=== PATIENT | male | born 1940 | race Caucasian/White ===

== ENCOUNTER → 2023-09-18 15:52 | Outpatient (REF) | payer MEDICARE, OTHER, SELFPAY | LOC: HWRAD 15:52 | PROVIDERS: ATTENDING PHYSICIAN Specialist; FAMILY PHYSICIAN Family Medicine | DX: N20.0 Calculus of kidney (principal) | CPT/HCPCS: 74176 ==

== ENCOUNTER 2024-01-31 13:08 | Emergency (ER) | payer MEDICARE, OTHER, SELFPAY ==
[2024-01-31 13:17] VITALS: BP 136/78
--- NOTE | 2024-01-31 14:13 | ED.GENMED ---
History of Present Illness
General
Chief Complaint: Abdominal Symptoms
Source: patient and family
Time Seen by Provider: 01/31/24 13:59
History of Present Illness
History of Present Illness:
83yoM with a history of hypertension, hyperlipidemia, and aortic stenosis presenting with his for evaluation of generalized weakness. Patient and his started with diarrhea last week. The diarrhea lasted about 3 days before resolving. He is
now experiencing generalized weakness, fatigue, nausea, and decreased appetite. He has lost about 10 pounds within the past week. He also reports intermittent right sided abdominal pain. He was able to do some yard work today for about 30 minutes
but was very fatigued afterwards. He is having some mild shortness of breath with walking up the steps. No chest pain or syncope. No fevers or hematochezia. He called his PCP's office today and he was advised to go to the ED for evaluation.
Past History
Past History
ED Past Medical History: HTN, Hypercholesterolemia and Other (BPH, Kidney stones, Double vision corrected with glasses,)
ED Past Surgical History: Orthopedic (bilateral knee surgery)
Social History
Tobacco: Non-smoker
Alcohol: Daily (wine 1 glass)
Personal:
Living: with family
Phy Exam
Physical Exam
Physical Exam:
Appears mildly fatigued, non-toxic
General Physical Exam
General Presentation: well appearing and no apparent distress
General age: appears stated age
General Skin: warm and dry
General Habitus: elderly
General Mental: alert
Cardiovascular Exam
Cardiovascular Exam: regular rate/rhythm and systolic murmur
Pulmonary Exam
Pulmonary Exam: lungs clear, no respiratory distress, no crackles and no wheezing
Gastrointestinal Exam
Gastrointestinal Exam: normal bowel sounds, non tender, soft and non distended
Skin Exam
Skin Exam: normal color and warm/dry
Psychiatric Exam
Psychiatric Exam: normal mood/affect
Course
Orders/Labs/Results
Orders:
Orders
01/31/24 14:12
Electrocardiogram (*1) Urgent
Reason for Study: Other
Other Reason for Exam: generalized weakness
EKG- Treatment ONCE
CR Chest - 2 Views Urgent
Comment:
Reason For Exam: Cough, weakness
01/31/24 14:13
0.9% Sodium Chloride 250 ml [Nss] 250 ml IV BOLUS
01/31/24 14:31
Complete Blood Count/With Diff Urgent
Comprehensive Metabolic Panel Urgent
Lipase Urgent
Magnesium Urgent
Troponin I Urgent
01/31/24 15:14
CT Abd/pel Without Iv Or Oral Urgent
Comment:
Reason For Exam: RLQ pain
Abnormal Lab Results
01/31/24
14:31
RBC 3.58 L 10^6/uL
(4.70-6.10)
Hgb 11.6 L g/dL
(13.0-18.0)
Hct 33.5 L %
(39.0-52.0)
MCH 32.4 H pg
(27.0-31.0)
MPV 11.5 H fL
(7.4-10.4)
Absolute Lymphs (auto) 0.9 L 10^3/uL
(1.2-3.4)
Absolute Monos (auto) 0.7 H 10^3/uL
(0.1-0.6)
Lymphocytes % 13.1 L %
(20.5-51.1)
Monocytes % 10.3 H %
(1.7-9.3)
Chloride 108 H mmol/L
(98-107)
BUN 41 H mg/dl
(9-20)
Creatinine 1.9 H mg/dL
(0.7-1.3)
Total Protein 6.2 L g/dl
(6.3-8.2)
01/31/24 14:31
01/31/24 14:31
Vital Signs
Initial and Last Documented VS:
Initial Vital Signs
Temp Pulse Resp BP Pulse Ox
97.4 F 87 18 136/78 98
01/31/24 13:17 01/31/24 13:17 01/31/24 13:17 01/31/24 13:17 01/31/24 13:17
Last Documented Vital Signs
Temp Pulse Resp BP Pulse Ox
97.6 F 73 20 119/65 97
01/31/24 19:05 01/31/24 19:05 01/31/24 19:05 01/31/24 19:05 01/31/24 19:05
MDM/Problems Addressed
Differential Diagnosis Includes:
83yoM here with fatigue, nausea, and decreased appetite. Started with diarrhea 1 week ago which has resolved. No f/c. He is afebrile and hemodynamically stable. He is well appearing in no distress. No signs of peritonitis on abdominal exam.
Differential diagnosis includes but is not limited to: dehydration, electrolyte abnormality, EWA, intra-abdominal infection
Initial ED plan: Check cardiac labs, EKG, CXR, and CT abdomen. IV fluid bolus.
*EKG
Interpreted by ED Provider?: Yes
EKG Intrepretation Date: 01/31/24
Heart Rate: 74
Rate: normal
Rhythm: sinus
[place]: normal axis
Interval: normal interval
QRS Pattern: normal QRS
Ischemia: no ischemia
*Critical Care Note
Total Time (30-74mins, 75-104mins- exclusive of procedures): Not Applicable
Update Note
Update Note:
Labs reveal a creatinine of 1.9 and GFR 34. White count, electrolytes, and LFTs normal. EKG shows NSR without ischemic changes and troponin is normal. CXR is normal. CT abdomen shows evidence of an diarrheal illness without other acute findings. I
called patient's nephrology office. Last BMP was checked on 01/17/24 and creatinine was 1.78 at that time. Creatinine mildly above baseline but no indication for admission at this time. 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 ED return
precautions discussed. Patient in agreement with plan and was discharged in stable condition.
ED Attending Note
-
Portions of this chart may have been created with voice recognition software.� Occasional wrong word or��sound alike� substitutions may have occurred due to the inherent limitations of voice recognition software.
Discharge Plan
Departure
Patient Disposition: Home (Routine Discharge)
Date of Disposition: 01/31/24
Time of Disposition: 17:42
Patient with high blood pressure during this ER visit?: No
Discharge Problem:
Malaise and fatigue
Instructions: Fatigue ED
Referrals:
Stef Rome MD [Family Provider] -
Activity Restrictions/Additional Instructions:
Drink plenty of fluids and rest.
Please follow-up with your family doctor on Saturday. Return to the ER with any new or worsening symptoms.
Interventions
Interventions:
*Risk Screen - Suicide Last Done: 01/31/24 15:43
*General Assessment Last Done: 01/31/24 13:14
*Neglect/Abuse Screening Last Done: 01/31/24 15:43
ED- Fall Risk Assessment Last Done: 01/31/24 19:05
*ED COVID-19 Vaccine History Last Done: 01/31/24 13:18
*Nursing Disposition Last Done: 01/31/24 19:05
ML-Hvwmod-[id number] Assessment Last Done: 01/31/24 15:46
Discharge Date and Time
Discharge Date/Time: 01/31/24 19:07
Print Language: WELSH
[2024-01-31] MEDS: NSS 250 IV (14:38)
[2024-01-31 14:50] LABS: % Basophils 0.6 % (0-2); % Eosinophils 0.7 % (0-6); % Immature Granulocytes 0.4 % (0-0.5); % Lymphocytes 13.1 % (20.5-51.1); % Monocytes 10.3 % (1.7-9.3); % Neutrophils 74.9 % (42.2-75.2); Absolute Eosinophils 0.1 10^3/uL (0-0.7); Absolute Lymphocytes 0.9 10^3/uL (1.2-3.4); Absolute Monocytes 0.7 10^3/uL (0.1-0.6); Absolute Neutrophils 5.1 10^3/uL (1.4-6.5); Hematocrit 33.5 % (39.0-52.0); Hemoglobin 11.6 g/dL (13.0-18.0); Mean Corp Hgb Conc. 34.6 g/dL (33.0-37.0); Mean Corpuscular Hgb 32.4 pg (27.0-31.0); Mean Corpuscular Volume 93.6 fL (80.0-94.0); Mean Platelet Volume 11.5 fL (7.4-10.4); Nucleated Red Blood Cells % 0 % (-); Platelet Count 181 10^3/uL (130-400); Red Blood Cell Count 3.58 10^6/uL (4.70-6.10); Red Cell Dist. Width 13.3 % (11.5-14.5); White Blood Cell Count 6.8 10^3/uL (4.8-10.8)
[2024-01-31 15:04] LABS: ALT (SGPT) 28 U/L (0-50); AST (SGOT) 39 U/L (17-59); Alkaline Phosphatase 68 U/L (38-126); Blood Urea Nitrogen 41 mg/dl (9-20); Calcium 9.5 mg/dl (8.4-10.2); Carbon Dioxide 22 mmol/L (22-30); Chloride 108 mmol/L (98-107); Glucose 99 mg/dl (70-99); Lipase 123 U/L (23-300); Magnesium 2.1 mg/dl (1.6-2.3); Potassium 4.7 mmol/L (3.5-5.1); Sodium 138 mmol/L (135-145); Total Bilirubin 0.5 mg/dl (0.2-1.3); Total Protein 6.2 g/dl (6.3-8.2); eGFR 34.35
[2024-01-31 15:15] LABS: Troponin I < 0.012 ng/ml
[2024-01-31 15:35] VITALS: BMI 22.9
[2024-01-31 15:42] VITALS: BP 117/66
[2024-01-31 19:05] VITALS: BP 119/65
== END 2024-01-31 19:07 | disposition home or self-care (01) ==
LOC: EMR 13:08
PROVIDERS: Physician Assistant; EMERGENCY PHYSICIAN Emergency Medicine; FAMILY PHYSICIAN Family Medicine
DX: R53.83 Other fatigue (principal); R53.81 Other malaise; R19.7 Diarrhea, unspecified; R06.02 Shortness of breath; R11.0 Nausea; I10 Essential (primary) hypertension; E78.00 Pure hypercholesterolemia, unspecified; N40.0 Benign prostatic hyperplasia without lower urinary tract symptoms; I35.0 Nonrheumatic aortic (valve) stenosis
CPT/HCPCS: 99284; 96360; 71046; 74176; 80053; 83690; 83735; 84484; 85025; 93005

== ENCOUNTER → 2024-05-21 09:17 | Outpatient (REF) | payer MEDICARE, OTHER, SELFPAY | LOC: RCS 09:17 | PROVIDERS: ATTENDING PHYSICIAN Internal Medicine Cardiovascular Disease; FAMILY PHYSICIAN Family Medicine | DX: I35.0 Nonrheumatic aortic (valve) stenosis (principal) | CPT/HCPCS: 93306 ==

== ENCOUNTER → 2024-11-03 09:26 | Outpatient (REF) | payer MEDICARE, OTHER, SELFPAY | LOC: HWRAD 09:26 | PROVIDERS: ATTENDING PHYSICIAN Internal Medicine; FAMILY PHYSICIAN Family Medicine | DX: N18.32 Chronic kidney disease, stage 3b (principal) | CPT/HCPCS: 76775 ==

== ENCOUNTER 2025-03-29 13:54 | Emergency (ER) | payer MEDICARE, OTHER, SELFPAY ==
[2025-03-29 14:04] VITALS: BP 125/62
[2025-03-29 14:24] LABS: Hematocrit 35.4 % (39.0-52.0); Hemoglobin 11.3 g/dL (13.0-18.0); Mean Corp Hgb Conc. 31.9 g/dL (33.0-37.0); Mean Corpuscular Volume 101.4 fL (80.0-94.0); Nucleated Red Blood Cells % 0 % (-); Platelet Count 192 10^3/uL (130-400); Red Cell Dist. Width 16.0 % (11.5-14.5)
[2025-03-29 14:43] LABS: INR 1.07; PT 14.2 Sec (11.4-14.6)
[2025-03-29 14:46] LABS: ALT (SGPT) 35 U/L (0-50); AST (SGOT) 34 U/L (17-59); Albumin 3.7 g/dl (3.5-5.0); Alkaline Phosphatase 78 U/L (38-126); Blood Urea Nitrogen 32 mg/dl (9-20); Calcium 8.7 mg/dl (8.4-10.2); Carbon Dioxide 26 mmol/L (22-30); Chloride 111 mmol/L (98-107); Glucose 90 mg/dl (70-99); Potassium 4.9 mmol/L (3.5-5.1); Sodium 140 mmol/L (135-145); Total Protein 6.1 g/dl (6.3-8.2)
[2025-03-29 14:55] LABS: eGFR 39.02
[2025-03-29 14:56] LABS: Troponin I < 0.012 ng/ml
[2025-03-29 19:24] VITALS: BP 135/85
[2025-03-29 19:32] VITALS: BMI 23.4
--- NOTE | 2025-03-29 19:44 | ED.GENMED ---
History of Present Illness
General
Chief Complaint: Fainting Sensation
Time Seen by Provider: 03/29/25 19:11
History of Present Illness
History of Present Illness:
84-year-old male with history of aortic stenosis, hypertension, and hyperlipidemia presents to the emergency department for evaluation of a near syncopal episode that occurred while he was taking out a heavy bag of trash. States he had carried 2
heavy bags of trash without difficulty but then shortly after he began to feel very lightheaded and weak all over. He lowered himself to the ground and was unable to get up for a period of time. Episode lasted 10 to 15 minutes before resolving.
He now feels well. Denies associated palpitations or chest pain. Last echocardiogram was 2023 showing moderate
Past History
Past History
ED Past Medical History: HTN, Hypercholesterolemia and Other (BPH, Kidney stones, Double vision corrected with glasses,)
ED Past Surgical History: Orthopedic (bilateral knee surgery)
Social History
Tobacco: Non-smoker
Alcohol: Daily (wine 1 glass)
Personal:
Living: with family
Review of Systems
Review of Systems
Allergies reviewed?: Yes
All Other Systems: ROS reviewed and negative except as documented in HPI and ROS
Phy Exam
Physical Exam
Physical Exam:
GEN: Well appearing, NAD, WDWN
HEENT: Oral mucosa moist, no scleral icterus
Cardiac: Regular rate and rhythm, moderate systolic murmur
Lung: No respiratory distress, no tachypnea, lungs clear to auscultation
MSK: No gross deformity or injuries
Skin: Good color, no pallor or jaundice, no rashes
Neuro: AO x3, cranial nerves II through XII grossly intact, moves all extremities freely
Psych: Calm, cooperative
Course
Orders/Labs/Results
Orders:
Orders
03/29/25 14:09
Electrocardiogram (*1) Urgent
Reason for Study: Chest Pain
EKG- Treatment ONCE
03/29/25 14:13
Complete Blood Count/With Diff Urgent
Comprehensive Metabolic Panel Urgent
Prothrombin Time Urgent
Troponin I Urgent
Abnormal Lab Results
03/29/25
14:13
RBC 3.49 L 10^6/uL
(4.70-6.10)
Hgb 11.3 L g/dL
(13.0-18.0)
Hct 35.4 L %
(39.0-52.0)
MCV 101.4 H fL
(80.0-94.0)
MCH 32.4 H pg
(27.0-31.0)
MCHC 31.9 L g/dL
(33.0-37.0)
RDW 16.0 H %
(11.5-14.5)
MPV 10.9 H fL
(7.4-10.4)
Absolute Lymphs (auto) 0.8 L 10^3/uL
(1.2-3.4)
Lymphocytes % 15.4 L %
(20.5-51.1)
Monocytes % 9.7 H %
(1.7-9.3)
Chloride 111 H mmol/L
(98-107)
BUN 32 H mg/dl
(9-20)
Creatinine 1.7 H mg/dL
(0.7-1.3)
Total Protein 6.1 L g/dl
(6.3-8.2)
03/29/25 14:13
03/29/25 14:13
Vital Signs
Initial and Last Documented VS:
Initial Vital Signs
Temp Pulse Resp BP Pulse Ox
97.7 F 64 18 125/62 98
03/29/25 14:04 03/29/25 14:04 03/29/25 14:04 03/29/25 14:04 03/29/25 14:04
Last Documented Vital Signs
Temp Pulse Resp BP Pulse Ox
97.7 F 60 21 135/85 98
03/29/25 14:04 03/29/25 19:45 03/29/25 19:45 03/29/25 19:24 03/29/25 19:46
MDM/Problems Addressed
MDM/Problems Addressed:
This was likely an exertional near syncopal/vasovagal event, labs are reassuring. While he does have a moderate aortic stenosis murmur, his lack of chest pain or dyspnea associated with this make valve related syncope unlikely. He does have
planned upcoming cardiology follow-up. No indication for neuroimaging as he did not fall and I have no clinical concern for CVA at this time
Comment
Comment:
EKG independently interpreted by me shows a normal sinus rhythm at a rate of [address] changes concerning for ischemia
*Pulse Oximetry
SaO2: 98
Oxygen Mode of Delivery: Room air
Patient hypoxic: no
*Critical Care Note
Total Time (30-74mins, 75-104mins- exclusive of procedures): Not Applicable
ED Attending Note
-
Portions of this chart may have been created with voice recognition software.� Occasional wrong word or��sound alike� substitutions may have occurred due to the inherent limitations of voice recognition software.
Discharge Plan
Departure
Patient Disposition: Home (Routine Discharge)
Date of Disposition: 03/29/25
Time of Disposition: 19:44
Patient with high blood pressure during this ER visit?: No
Discharge Problem:
Vasovagal near-syncope
Instructions: Near Fainting (DC)
Referrals:
Abdi Wright MD [Active, Cardiology]
Stef Rome MD [Family Provider, Family Practice]
Activity Restrictions/Additional Instructions:
With your aortic valve problem it is very important that you stay adequately hydrated each day particular if you plan to do any exertional activities
Follow-up with your dietist as we discussed for repeat assessment of your aortic valve function as this may have been a contributing factor to your episode today
If you have repeated episodes return to the emergency department for reevaluation
Interventions
Interventions:
*Risk Screen - Suicide Last Done: 03/29/25 14:04
*General Assessment Last Done: 03/29/25 19:52
*Neglect/Abuse Screening Last Done: 03/29/25 19:52
*ED- Fall Risk Assessment Last Done: 03/29/25 19:52
*ED COVID-19 Vaccine History Last Done: 03/29/25 19:52
*Nursing Disposition Last Done: 03/29/25 19:52
ED- Cardiac Assessment Last Done: 03/29/25 19:32
ED- Neurological Assessment Last Done: 03/29/25 19:32
Discharge Date and Time
Discharge Date/Time: 03/29/25 19:55
Print Language: BAHRAINI
== END 2025-03-29 19:55 | disposition home or self-care (01) ==
LOC: EMR 13:54
PROVIDERS: Emergency Medicine; EMERGENCY PHYSICIAN Emergency Medicine; FAMILY PHYSICIAN Family Medicine
DX: R55 Syncope and collapse (principal); I10 Essential (primary) hypertension; E78.00 Pure hypercholesterolemia, unspecified; N40.0 Benign prostatic hyperplasia without lower urinary tract symptoms; I35.0 Nonrheumatic aortic (valve) stenosis; Z87.442 Personal history of urinary calculi
CPT/HCPCS: 99283; 80053; 84484; 85025; 85610; 93005

== ENCOUNTER → 2025-04-06 08:31 | Outpatient (REF) | payer MEDICARE, OTHER, SELFPAY | LOC: RAD 08:31 | PROVIDERS: ATTENDING PHYSICIAN Internal Medicine; FAMILY PHYSICIAN Family Medicine | DX: N18.32 Chronic kidney disease, stage 3b (principal) | CPT/HCPCS: 93975 ==

== ENCOUNTER 2025-04-21 20:44 | Inpatient (IN) | payer MEDICARE, OTHER, SELFPAY ==
[2025-04-21] VITALS (8 sets, daily range): BP systolic 119–151; BP diastolic 61–84; BMI 21.5
[2025-04-21 12:12] LABS: Hematocrit 36.3 % (39.0-52.0); Hemoglobin 12.0 g/dL (13.0-18.0); Mean Corp Hgb Conc. 33.1 g/dL (33.0-37.0); Mean Corpuscular Volume 100.0 fL (80.0-94.0); Nucleated Red Blood Cells % 0 % (-); Platelet Count 179 10^3/uL (130-400); Red Cell Dist. Width 13.9 % (11.5-14.5)
[2025-04-21 12:25] LABS: ALT (SGPT) 37 U/L (0-50); AST (SGOT) 35 U/L (17-59); Albumin 4.2 g/dl (3.5-5.0); Alkaline Phosphatase 79 U/L (38-126); Blood Urea Nitrogen 35 mg/dl (9-20); Calcium 9.3 mg/dl (8.4-10.2); Carbon Dioxide 26 mmol/L (22-30); Chloride 107 mmol/L (98-107); Glucose 128 mg/dl (70-99); Lipase 50 U/L (23-300); Potassium 5.3 mmol/L (3.5-5.1); Sodium 139 mmol/L (135-145); Total Protein 6.7 g/dl (6.3-8.2); eGFR 41.96
--- NOTE | 2025-04-21 14:22 | ED.GENMED ---
History of Present Illness
<Chapincito Montejo MD - Last Filed: 04/21/25 14:23>
General
Chief Complaint: Abdominal Pain
Source: patient
Exam Limitations: none
Time Seen by Provider: 04/21/25 13:43
History of Present Illness
History of Present Illness:
84-year-old male started last evening with abdominal pain. Vague in nature. Mild nausea. No vomiting. No diarrhea. Some mild anorexia. No radiation of the back or chest.
Past History
<Chapincito Montejo MD - Last Filed: 04/21/25 14:23>
Past History
ED Past Medical History: HTN, Hypercholesterolemia and Other (BPH, Kidney stones, Double vision corrected with glasses,)
ED Past Surgical History: Orthopedic (bilateral knee surgery)
Social History
Tobacco: Non-smoker
Alcohol: Daily (wine 1 glass)
Personal:
Living: with family
Review of Systems
<Chapincito Montejo MD - Last Filed: 04/21/25 14:23>
Review of Systems
All Other Systems: Not applicable
Constitutional: Denies fever or chills
Respiratory: Reports no symptoms
Cardiac: Reports no symptoms
: Reports no symptoms
Phy Exam
<Chapincito Montejo MD - Last Filed: 04/21/25 14:23>
Physical Exam
Physical Exam:
GENERAL: Alert and oriented in no apparent distress
EYE: Orbits normal.
NECK: Supple
CARDIAC: Regular rate and rhythm without any obvious murmurs.
LUNGS: Clear breath sounds,normal
ABDOMEN: Soft, bowel sounds present. No distention. Very mild nonlocalizing mostly mid abdominal tenderness. No rebound or guarding no mass or hernia. Testicles normal.
NEUROLOGICAL: Alert and oriented , grossly non-focal
SKIN: Warm and dry, no rash or lesion, no discoloration, skin intact.
MUSCULOSKELETAL: No edema,no deformity.Good color
PSYCH: Normal and appropriate interaction.
Course
<Chapincito Montejo MD - Last Filed: 04/21/25 14:23>
Orders/Labs/Results
Orders:
Orders
04/21/25 11:57
CMP [Comprehensive Metabolic Panel] Urgent
Complete Blood Count/With Diff Urgent
Lipase Urgent
04/21/25 13:28
Iohexol [Omnipaque] See Protocol PO NOW STA
04/21/25 13:44
0.9% Sodium Chloride 500 ml [Nss] 500 ml IV BOLUS
04/21/25 14:02
Iohexol [Omnipaque] See Protocol PO NOW STA
04/21/25 14:03
CT Abd/pel (oral only)-[facility] Only Urgent
Comment:
Reason For Exam: Mid to lower abdominal pain
04/21/25 14:43
Acetaminophen 1000MG/100Ml [Ofirmev] 1,000 mg in 100 ml IV ONCE
Acetaminophen IV Indication:: ED Narcotic Naive Pt-ONCE
04/21/25 15:16
Urinalysis Reflex To Culture Urgent
Date Specimen was Collected: 04/21/25
Time Specimen was Collected: 14:55
Urine Microscopic Reflex Cult Urgent
04/21/25 18:03
US Abdomen Limited Urgent
Comment: ruq ltd, f/u gb from ct
Reason For Exam: RUQ pain
04/21/25 20:06
Consult Surgery [SURGICAL CONSULT] Routine
Consulting Provider: Presley Tucker
Was physician already notified: Yes
Piperacillin/Tazo 3.375 Gram [Zosyn] 3.375 gram in 50 ml IV NOW
Abnormal Lab Results
04/21/25 04/21/25
11:57 15:16
WBC 12.0 H 10^3/uL
(4.8-10.8)
RBC 3.63 L 10^6/uL
(4.70-6.10)
Hgb 12.0 L g/dL
(13.0-18.0)
Hct 36.3 L %
(39.0-52.0)
MCV 100.0 H fL
(80.0-94.0)
MCH 33.1 H pg
(27.0-31.0)
MPV 11.6 H fL
(7.4-10.4)
Abs Immat Gran (auto) 0.1 H 10^3/uL
(0-0.05)
Absolute Neuts (auto) 10.2 H 10^3/uL
(1.4-6.5)
Absolute Lymphs (auto) 0.6 L 10^3/uL
(1.2-3.4)
Absolute Monos (auto) 1.1 H 10^3/uL
(0.1-0.6)
Neutrophils % 85.2 H %
(42.2-75.2)
Lymphocytes % 4.7 L %
(20.5-51.1)
Monocytes % 9.4 H %
(1.7-9.3)
Potassium 5.3 H mmol/L
(3.5-5.1)
BUN 35 H mg/dl
(9-20)
Creatinine 1.6 H mg/dL
(0.7-1.3)
Glucose 128 H mg/dl
(70-99)
Ur Occult Blood Reflex 2+ A
(Negative)
Urine RBC 21-25 A /HPF
(0-2)
Urine Bacteria (Reflex) Few A
(Negative)
Urine Albumin (Reflex) 1+ A
(Neg - Trace)
04/21/25 11:57
04/21/25 11:57
Vital Signs
Initial and Last Documented VS:
Initial Vital Signs
Temp Pulse Resp BP Pulse Ox
98.5 F 75 16 151/82 98
04/21/25 11:51 04/21/25 11:51 04/21/25 11:51 04/21/25 11:51 04/21/25 11:51
Last Documented Vital Signs
Temp Pulse Resp BP Pulse Ox
98.8 F 72 16 131/84 96
04/21/25 17:05 04/21/25 20:01 04/21/25 11:51 04/21/25 19:26 04/21/25 19:45
<Golden De Leon, DO - Last Filed: 04/21/25 20:10>
Orders/Labs/Results
Orders:
Orders
04/21/25 11:57
CMP [Comprehensive Metabolic Panel] Urgent
Complete Blood Count/With Diff Urgent
Lipase Urgent
04/21/25 13:28
Iohexol [Omnipaque] See Protocol PO NOW STA
04/21/25 13:44
0.9% Sodium Chloride 500 ml [Nss] 500 ml IV BOLUS
04/21/25 14:02
Iohexol [Omnipaque] See Protocol PO NOW STA
04/21/25 14:03
CT Abd/pel (oral only)-[facility] Only Urgent
Comment:
Reason For Exam: Mid to lower abdominal pain
04/21/25 14:43
Acetaminophen 1000MG/100Ml [Ofirmev] 1,000 mg in 100 ml IV ONCE
Acetaminophen IV Indication:: ED Narcotic Naive Pt-ONCE
04/21/25 15:16
Urinalysis Reflex To Culture Urgent
Date Specimen was Collected: 04/21/25
Time Specimen was Collected: 14:55
Urine Microscopic Reflex Cult Urgent
04/21/25 18:03
US Abdomen Limited Urgent
Comment: ruq ltd, f/u gb from ct
Reason For Exam: RUQ pain
04/21/25 20:06
Consult Surgery [SURGICAL CONSULT] Routine
Consulting Provider: Presley Tucker
Was physician already notified: Yes
Piperacillin/Tazo 3.375 Gram [Zosyn] 3.375 gram in 50 ml IV NOW
Abnormal Lab Results
04/21/25 04/21/25
11:57 15:16
WBC 12.0 H 10^3/uL
(4.8-10.8)
RBC 3.63 L 10^6/uL
(4.70-6.10)
Hgb 12.0 L g/dL
(13.0-18.0)
Hct 36.3 L %
(39.0-52.0)
MCV 100.0 H fL
(80.0-94.0)
MCH 33.1 H pg
(27.0-31.0)
MPV 11.6 H fL
(7.4-10.4)
Abs Immat Gran (auto) 0.1 H 10^3/uL
(0-0.05)
Absolute Neuts (auto) 10.2 H 10^3/uL
(1.4-6.5)
Absolute Lymphs (auto) 0.6 L 10^3/uL
(1.2-3.4)
Absolute Monos (auto) 1.1 H 10^3/uL
(0.1-0.6)
Neutrophils % 85.2 H %
(42.2-75.2)
Lymphocytes % 4.7 L %
(20.5-51.1)
Monocytes % 9.4 H %
(1.7-9.3)
Potassium 5.3 H mmol/L
(3.5-5.1)
BUN 35 H mg/dl
(9-20)
Creatinine 1.6 H mg/dL
(0.7-1.3)
Glucose 128 H mg/dl
(70-99)
Ur Occult Blood Reflex 2+ A
(Negative)
Urine RBC 21-25 A /HPF
(0-2)
Urine Bacteria (Reflex) Few A
(Negative)
Urine Albumin (Reflex) 1+ A
(Neg - Trace)
04/21/25 11:57
04/21/25 11:57
Vital Signs
Initial and Last Documented VS:
Initial Vital Signs
Temp Pulse Resp BP Pulse Ox
98.5 F 75 16 151/82 98
04/21/25 11:51 04/21/25 11:51 04/21/25 11:51 04/21/25 11:51 04/21/25 11:51
Last Documented Vital Signs
Temp Pulse Resp BP Pulse Ox
98.8 F 72 16 131/84 96
04/21/25 17:05 04/21/25 20:01 04/21/25 11:51 04/21/25 19:26 04/21/25 19:45
<Chapincito Montejo MD - Last Filed: 04/21/25 14:23>
MDM/Problems Addressed
Differential Diagnosis Includes:
Patient with vague mid abdominal symptoms. Nontoxic. Labs are stable. Mild leukocytosis. Large differential given the nonlocalization of symptoms. CT scan pending.
<Chapincito Montejo MD - Last Filed: 04/21/25 14:23>
*Pulse Oximetry
SaO2: 98
Oxygen Mode of Delivery: Room air
Patient hypoxic: no
<Golden De Leon DO - Last Filed: 04/21/25 20:10>
*Critical Care Note
Total Time (30-74mins, 75-104mins- exclusive of procedures): Not Applicable
<Golden De Leon DO - Last Filed: 04/21/25 20:10>
Update Note
Update Note:
6 PM care of patient was transitioned earlier pending CT abdomen/pelvis. CT is concerning for possible acute cholecystitis. On my evaluation, patient states that his general abdominal pain is now localized in the right upper quadrant which is
confirmed on palpation. Will obtain ultrasound
8 PM ultrasound concerning for cholecystitis. Will start Zosyn. Surgery made aware. Will admit to the hospital service
ED Attending Note
<Chapincito Montejo MD - Last Filed: 04/21/25 14:23>
-
Portions of this chart may have been created with voice recognition software.� Occasional wrong word or��sound alike� substitutions may have occurred due to the inherent limitations of voice recognition software.
Discharge Plan
Departure
Patient Disposition: Admit
Date of Disposition: 04/21/25
Time of Disposition: 20:07
Admit to: Med/Surg
Presentation/result/management discussed w/ accepting MD/DO: Hospitalist
Discharge Problem:
Acute calculous cholecystitis
Referrals:
Stef Rome MD [Family Provider, Family Practice]
Interventions
Interventions:
*Risk Screen - Suicide Last Done: 04/21/25 11:51
*General Assessment Last Done: 04/21/25 11:51
*Neglect/Abuse Screening Last Done: 04/21/25 11:51
*ED- Fall Risk Assessment Last Done: 04/21/25 11:51
*ED COVID-19 Vaccine History Last Done: 04/21/25 11:51
*ED Influenza Vaccine History Last Done: 04/21/25 11:51
HU-Gpeqhl-Urvwdorclr Assessment Last Done: 04/21/25 18:00
Discharge Date and Time
Print Language: [place]
[2025-04-21] MEDS: OMNIPAQUE 50 ML PO (14:34)
[2025-04-21] MEDS: OFIRMEV 100 IV (15:13)
[2025-04-21] MEDS: NSS 500 IV (15:13)
[2025-04-21 15:35] LABS: Urine Character Clear (Clear)
[2025-04-21 15:43] LABS: Urine Squamous Cell 0-2 /LPF (Few)
[2025-04-21 15:44] LABS: Urine Red Blood Cell 21-25 /HPF (0-2); Urine White Cell 0-2 /HPF (0-5)
[2025-04-21] MEDS: ZOSYN 50 IV (20:14)
--- NOTE | 2025-04-21 20:15 | HPS.HSE ---
Family Physician
-
Family Physician: Stef Rome
Chief Complaint
-
Abdominal pain
History of Present Illness
This is a 84-year-old male with past medical history significant for hypertension, hyperlipidemia, BPH, and nephrolithiasis presenting to the emergency department with 1 day history of abdominal pain.
Patient reports acute onset of diffuse abdominal discomfort started last evening. His last meal was yesterday afternoon. He reported mild nausea but no vomiting. Reports constipation. Denies any diarrhea. He reports mild chills but no fevers.
He denies any jaundice. He denies any urinary symptoms including dysuria, hematuria frequency or urgency. He denies any shortness of breath. He denies any cough.
In the emergency department patient has been afebrile, blood pressure was 131/81 with a pulse of 72 and satting 96% on room air. CBC shows a white count of 12.0, hemoglobin platelets are normal. Electrolytes notable for a potassium of 5.3 but
otherwise remarkable for creatinine of 1.6 which is his baseline. LFTs were unremarkable. Lipase was normal. UA showed occult blood but otherwise unremarkable.
CT of the abdomen pelvis showed small calcifications within the gallbladder lumen, which are likely small calcified gallstones. The gallbladder is distended with transverse dimension of 4.5 cm. There is loss of definition of the gallbladder wall
with stranding of the fat surrounding the gallbladder, new finding from prior CT scan. These findings are considered highly suspicious for acute cholecystitis, and please correlate clinically. There is a calculus present within the right renal
pelvis, transverse dimension of 11 mm. Branching calculus present within the major minor calyces of the lower pole the right kidney, transverse dimension of approximately 13 mm these calculi appear stable from examination of January 31, 2024. There is
either a cyst or dilated calyx in the central right mid kidney, as seen on images 29 and 30 of series 201.
There are multiple small left-sided nephroliths. There is an 8 mm nephrolith in the central left mid kidney. These findings also appear stable from previous examination. There is no evidence for ureteral calculus bilaterally.
U/S: Gall bladder is distended. Shadowing stones and sludge are present within the gallbladder lumen. The gallbladder wall is thickened. Correlating with CT examination, findings are suspicious for acute cholecystitis
Medical History
Past Medical History
Past Medical History: Reports Other
Additional Past Medical History:
Hypertension, hyperlipidemia, BPH, nephrolithiasis,
Past Surgical History: Reports Orthopedic (Bilateral knee replacement)
Social History
Tobacco: Non-smoker
Alcohol: None
Drug: None
Family History
Family History: Not pertinent
Allergies / Home Medications
Allergies reflects when Allergies were last updated in [facility].
Home Medications with original date entered in [facility]
Allergy/Medication List:
Allergies
Allergy/AdvReac Type Severity Reaction Status Date / Time
No Known Allergies Allergy Verified 03/29/25 14:04
Review of Systems
-
Constitutional: Reports No Symptoms
EENT: Reports No Symptoms
Respiratory: Reports No Symptoms
Cardiac: Reports No Symptoms
Abdomen/GI: Reports Abdominal Pain and Nausea
: Reports No Symptoms
Musculoskeletal: Reports No Symptoms
Skin: Reports No Symptoms
Neurological: Reports No Symptoms
Endocrine: Reports No Symptoms
Hematologic/Lymphatic: Reports No Symptoms
Psych: Reports No Symptoms
Physical Exam
Vital Signs
Vital Signs
Temp Pulse Resp BP Pulse Ox
98.8 F 72 16 131/84 96
04/21/25 17:05 04/21/25 20:01 04/21/25 11:51 04/21/25 19:26 04/21/25 19:45
Physical Exam
General: Well Developed, Well Nourished and No Apparent Distress
HEENT: NormoCephalic, Moist mucous membranes and Atraumatic
Respiratory: Clear
Cardiac: S1/S2 and Regular Rhythm; No Murmur or Rub
GI: Soft, Non Tender, Non Distended and Normal Bowel Sounds; No Organomegaly
Rectal: Deferred by Provider
Musculoskeletal: No Clubbing, No Cyanosis and No Edema
Skin: No Rash
Neuro: Nonfocal/grossly intact
Laboratory Results
-
04/21/25 11:57
04/21/25 11:57
Laboratory Results
Total Bilirubin 0.5 mg/dl (0.2-1.3) 04/21/25 11:57
AST 35 U/L (17-59) 04/21/25 11:57
ALT 37 U/L (0-50) 04/21/25 11:57
Alkaline Phosphatase 79 U/L (38-126) 04/21/25 11:57
Lipase 50 U/L (23-300) 04/21/25 11:57
Data Reviewed
-
CT Scan: Report Reviewed by me
Ultrasound: Report Reviewed by me
Lab Data: Labs Reviewed by me
Old Records: Reviewed
Impression/Plan
-
IMPRESSION:
84-year-old with history of BPH and nephrolithiasis presents to the emergency department abdominal pain and found to have acute cholecystitis on CT scan and ultrasound. He is afebrile and hemodynamically stable.
PLAN:
Acute cholecystitis
- Admit to [facility]
- N.p.o. for now
- Maintenance IV fluid
- Continue IV Zosyn
- Pain control antiemetic
- Surgical consultation
Microscopic hematuria -patient has no nephrolithiasis and has calculus present within the right renal pelvis, transverse dimension of 11 mm. Branching calculus present within the major minor calyces of the lower pole the right kidney, transverse
dimension of approximately 13 mm these calculi appear stable from examination of January 31, 2024. There is either a cyst or dilated calyx in the central right mid kidney, as seen on images 29 and 30 of series 201. And there is no nephrolithiasis.
Renal function is unchanged from prior. He has been followed by urology.
- No acute intervention, follow-up with urology
Hypertension
- Continue losartan and doxazosin after procedure
DVT prophylaxis�heparin subcu
CODE STATUS�full code
--- NOTE | 2025-04-21 22:00 | PTCARENOTE ---
Patient received from ED, AAOX3, PALMA, ambulates. offers no complaints. apical regular with murmur, no edema, lungs clear on room air. Abdomen soft, with hypoactive bowel sounds. Voids. #20g in RAC flushed and patent
[2025-04-21] MEDS: LR 500 IV (22:10)
[2025-04-21] MEDS: HEPARIN 5000 UNITS SC (23:09)
[2025-04-21] MEDS: LR 1000 IV (23:09)
[2025-04-22] VITALS (9 sets, daily range): BP systolic 105–145; BP diastolic 58–76
[2025-04-22] MEDS: ZOSYN 50 IV ×4 (01:56→19:46)
[2025-04-22 06:52] LABS: Hematocrit 32.6 % (39.0-52.0); Hemoglobin 10.6 g/dL (13.0-18.0); Mean Corp Hgb Conc. 32.5 g/dL (33.0-37.0); Mean Corpuscular Volume 98.8 fL (80.0-94.0); Platelet Count 154 10^3/uL (130-400); Red Cell Dist. Width 14.0 % (11.5-14.5)
[2025-04-22 06:54] LABS: Blood Urea Nitrogen 33 mg/dl (9-20); Calcium 8.6 mg/dl (8.4-10.2); Carbon Dioxide 25 mmol/L (22-30); Chloride 106 mmol/L (98-107); Estimated Creatinine Clearance 26 ml/min; Glucose 95 mg/dl (70-99); Magnesium 1.6 mg/dl (1.6-2.3); Potassium 5.4 mmol/L (3.5-5.1); Sodium 134 mmol/L (135-145); eGFR 41.96
[2025-04-22] MEDS: LIPITOR 10 MG PO (08:21)
[2025-04-22] MEDS: HEPARIN 5000 UNITS SC (08:21)
--- NOTE | 2025-04-22 11:05 | CM ---
Reviewed the chart notes and spoke with the patient and his spouse at the bedside. Patient anticipates going to OR today for ran reynolds. Patient resides with his spouse in a two story home with one step to enter. The patient reports no DME/VN/SNF
in the past. Patient confirmed pharmacy of choice is [facility]. CM continues to be available to patient/family and is monitoring medical plan for needs at discharge.
Plan: Discharge plans will depend on the patient's progress.
--- NOTE | 2025-04-22 11:07 | W.PN.HOSP.TC ---
Today's Communication/Plan
-
See plan
Assessment / Plan
Assessment / Plan
Impression:
Presentation with acute onset of right upper quadrant pain.
Acute calculous cholecystitis.
Hyperkalemia
Conditions prior to admission:
Severe aortic stenosis.
Essential hypertension.
CKD stage IIIb with baseline creatinine 1.6
Renal artery stenosis
Chronic microcytic anemia
Plan:
Acute calculous cholecystitis
Surgery consultation appreciated.
IV antibiotics: Zosyn
Plan is for laparoscopic cholecystectomy tentatively on 04/22.
Preoperative clearance
RCRI patient without any history of ischemic heart disease. Known CKD stage IIIb with stable renal function. Aortic stenosis with currently compensated volume status
Overall risk less than 1%
Functional capacity greater than 4 METS
Known severe aortic stenosis well with good exercise capacity and compensated volume status upon presentation
No additional workup required prior to surgery.
Aortic stenosis
Echo 05/08.
1. Ejection fraction is 55-60% by visual assessment. Basal inferior hypokinesis.
2. Right ventricular size and systolic function are within normal limits.
3. Severe aortic stenosis; peak/mean gradients 71/41 mmHg, calculated SUZY is 0.78 cm².
4. Mild to moderate aortic regurgitation.
5. Mild to moderate tricuspid regurgitation. Estimated pulmonary artery pressure of 28 mmHg assuming a right atrial pressure of 3 mmHg.
6. Compared to a prior transthoracic echocardiogram study from 05/21/2024, progressive aortic stenosis is noted, now severe.
Recent ED visit with syncopal episode presumed to be vasovagal.
Monitor volume status and hemodynamics closely
CKD stage IIIb baseline creatinine 1.6
Renal artery stenosis.
Hyperkalemia upon presentation.
Hold losartan.
Follow BMP.
Chronic microcytic anemia.
Hemoglobin at baseline.
Anticipated Discharge: 24 - 48 hours
Subjective/Interval History
-
Date of Service: April 22, 2025
Objective Data
-
Labs:
Laboratory Results
04/22/25
06:15
WBC 14.6 H
Hgb 10.6 L
Hct 32.6 L
Plt Count 154
Sodium 134 L
Potassium 5.4 H
Chloride 106
Carbon Dioxide 25
BUN 33 H
Creatinine 1.6 H
Glucose 95
Calcium 8.6
Vital Signs:
Vital Signs
Temp Pulse Resp BP Pulse Ox
100.2 F 75 18 116/63 95
04/22/25 07:40 04/22/25 07:40 04/22/25 07:40 04/22/25 07:40 04/22/25 07:40
I&O
04/21/25 04/22/25 04/23/25
06:59 06:59 06:59
Intake Total 1390 / 1390 50 / 50
Balance 1390 / 1390 50 / 50
Physical Exam
-
General: Well Developed and No Apparent Distress
HEENT: Normocephalic, Atraumatic and Moist Mucous Membranes
Respiratory: Clear to Auscultation
Cardiac: Regular Rhythm, S1/S2 and Murmur (Left sternal border systolic 4 out of 6); Negative Rub or Gallop
GI: Soft, Nontender (Right upper quadrant tenderness), Nondistended and Normal Bowel Sounds; Negative Organomegaly
Rectal: Deferred by Provider
Musculoskeletal: No Clubbing, No Cyanosis and No Edema
Skin: Negative Rash
Neuro: Nonfocal/Grossly Intact
--- NOTE | 2025-04-22 11:20 | CON.GS ---
Consultation
-
Date/Time Consultation Performed: 04/22/2025 10 AM
Performing Provider: Caitlin
Reason for Consultation: Acute cholecystitis
Medical History
-
Chief Complaint: Abdominal pain
History of Present Illness:
Patient is an 84-year-old male who is in his usual baseline state of health until Saturday evening when shortly after having dinner he began developing progressive epigastric and right upper quadrant abdominal pain. It continued to increase in
severity with nausea and dry heaves. His symptoms persisted into yesterday prompting emergency department evaluation and subsequent admission after workup was consistent with acute cholecystitis.
Patient reports a previous history of indigestion which occurs on a rather frequent basis and is occasionally alleviated by Tums or [id number] antacids. He was unaware of the presence of gallstones. No past abdominal surgical history.
Past Medical History
Past Medical History: Other (Hypertension, hyperlipidemia, BPH, history of nephrolithiasis)
Past Surgical History: Other ( bilateral knee replacement)
Social History
Tobacco: Non-Smoker
Drug: None
Personal:
Living: With Family
Family History
Family History: Reviewed & Not Pertinent
Allergies / Home Medications
Allergy/AdvReac Type Severity Reaction Status Date / Time
No Known Allergies Allergy Verified 03/29/25 14:04
�Medication �Instructions �Recorded �Confirmed �Type
cholecalciferol (vitamin D3) 50 50 mcg PO DAILY Supplement 04/21/25 04/21/25 History
mcg (2,000 unit) capsule (Vitamin
D3)
cyanocobalamin (vitamin B-12) 1,000 mcg PO DAILY Supplement 04/21/25 04/21/25 History
1,000 mcg tablet
doxazosin 2 mg tablet 2 mg PO HS Blood Pressure 04/21/25 04/21/25 History
losartan 100 mg tablet 100 mg PO DAILY Blood Pressure 04/21/25 04/21/25 History
simvastatin 20 mg tablet (Zocor) 20 mg PO DAILY High Cholesterol 04/21/25 04/21/25 History
testosterone 1 pump topical DAILY Hormonal Agent 04/21/25 04/21/25 History
therapeutic multivitamin 1 tab PO DAILY Supplement 04/21/25 04/21/25 History
vitamin E 268 mg (400 unit) capsule 268 mg PO DAILY Supplement 04/21/25 04/21/25 History
Review of Systems
-
History Source: Patient
All other systems: Negative unless noted
A 10 point review of systems was completed, and was negative except as per HPI.
Physical Exam
Vital Signs
Temp Pulse Resp BP Pulse Ox
100.2 F 75 18 116/63 95
04/22/25 07:40 04/22/25 07:40 04/22/25 07:40 04/22/25 07:40 04/22/25 07:40
04/21/25 04/22/25 04/23/25
06:59 06:59 06:59
Actual Weight 54.159 kg
Body Mass Index (BMI) 21.5
Lab Results
04/22/25 06:15
04/22/25 06:15
WBC 14.6 10^3/uL (4.8-10.8) H 04/22/25 06:15
Hgb 10.6 g/dL (13.0-18.0) L 04/22/25 06:15
Hct 32.6 % (39.0-52.0) L 04/22/25 06:15
Plt Count 154 10^3/uL (130-400) 04/22/25 06:15
Abs Immat Gran (auto) 0.1 10^3/uL (0-0.05) H 04/21/25 11:57
Neutrophils % 85.2 % (42.2-75.2) H 04/21/25 11:57
Physical Exam
General: Well Developed, Well Nourished, No Apparent Distress and Comfortable
HEENT: Normocephalic, Anicteric and Moist Mucous Membranes
Respiratory: Non Labored Respirations
GI: Soft, Non Distended and Tender (Tenderness to palpation localizing to the right upper quadrant epigastrium but no rebound rigidity or guarding. Negative Tineo sign.)
Skin: Warm
Neuro: AO x 3
Psych: Calm
Data Reviewed
-
CT Scan: Image Personally Visualized and interpreted (Tensely distended gallbladder with surrounding inflammatory changes and radiopaque gallstones. Surrounding reactive inflammatory changes including adjacent to the transverse colon and
duodenum/pylorus but no free fluid, abscess or phlegmon.) and Report Reviewed by me
Ultrasound: Image Personally Visualized and interpreted (Gallbladder distention, shadowing stones and sludge, wall thickening. No biliary ductal dilation. Common bile duct 8 mm approaching top normal.) and Report Reviewed by me
Labs: Labs Reviewed by me (White blood cell count 14.6, hemoglobin 10.6, platelets 154. Hyponatremia, mild hyperkalemia, elevated BUN and creatinine. LFTs were normal. Normal lipase)
Assessment / Plan
-
Assessment: 84-year-old male with acute calculous cholecystitis with presumed cystic duct obstruction due to degree of gallbladder distention and inflammation seen. Symptoms also suggestive of chronic cholecystitis/biliary colic in the past.
Secondary leukocytosis persists this a.m.
Reviewed with patient and his at bedside indications for cholecystectomy for definitive management. Reviewed alternative nonoperative treatment options but risks associated with recurrence with this approach. After our discussions patient and
his are in agreement to proceed with cholecystectomy.
Laparoscopic cholecystectomy with intraoperative cholangiograms reviewed in detail including the anticipated operative technique, potential operative findings and their management, alternative treatment options, benefits and risks such as but not
limited to bleeding, infectious or wound related complications, iatrogenic injury to surrounding viscera, bile duct injury, bile duct leak. We discussed the typical postoperative recovery pending intraoperative findings and informed consent was
obtained.
Plan: Maintain n.p.o., patient added onto the OR schedule for today
Will resume Zosyn given leukocytosis and findings suggestive of acute cholecystitis
Continue IV fluids and supportive care
--- NOTE | 2025-04-22 11:28 | W.SUR.PREOP ---
Pre-Operative Surgical Note
-
I have examined this patient prior to the performance of the scheduled procedure.
The patient's condition is unchanged from the time of the current History and
Physical and the patient is able to undergo the scheduled procedure.
[2025-04-22] MEDS: LR 1000 IV (14:27)
--- NOTE | 2025-04-22 18:33 | W.IMMPOSTOP ---
Addendum entered and electronically signed by Presley Tucker MD 04/22/25 18:48:
#[id number]
Original Note:
Surgical Immed Post Op Note
-
Primary Surgeon: Presley Tucker MD
Assisting Surgeon: Steve TRACY
Pre-op Diagnosis: Acute calculous cholecystitis
Post-op Diagnosis: Acute calculous cholecystitis with hydrops and patchy gangrenous changes
Procedure Performed: Laparoscopic cholecystectomy with intraoperative cholangiogram
Anesthesia Type: GETA +0.25% Marcaine
Specimen / Cultures: Gallbladder/none
Estimated Blood Loss: 26 mL
Complications: None immediate
Operative Findings: Tensely distended gallbladder encased within acute and chronic inflammatory peel. Cyst needle decompression revealing clear hydropic gallbladder contents.
Cystic duct and artery individually identified. Cystic artery controlled with clips. Intraoperative cholangiogram confirming correct biliary anatomy isolated. Slight delay with initial emptying from common bile duct but no definitive stones.
Subsequent cholangiography with improved emptying after flush. Posterior wall gallbladder with patchy gangrenous changes. Gallbladder entered with spillage of stones but locally contained and all stones/sludge felt to be fully evacuated. 2 L
saline local irrigation till clear. Cystic duct controlled with Endo MARION 30 mm kilpatrick stapler proximal to duct anatomy created for cholangiogram. Surgiflo placed in cystic triangle due to friable tissues.
Plan: Clear liquid diet and advance as tolerated
Continue antibiotics postop and would cover for 5 days total postoperatively due to severity of cholecystitis
Pharmacologic DVT prophylaxis will be held this evening immediate postop.
Patient's updated postoperatively and waiting area
--- NOTE | 2025-04-22 19:35 | PTCARENOTE ---
Pt arrived to [address] [place] [address] from PACU at 1935. Pt AAOx3, drowsy. at bedside. c/o 3-10/22 pain, tylenol administered per order. IVF initiated per order. IV ABX administered. 4 lap sites with 1 puncture site closed with dermabond REJI, c/d/i. Reviewed
plan of care with pt and spouse. Questions answered. Care ongoing.
[2025-04-22] MEDS: TYLENOL 650 MG PO (19:44)
[2025-04-22] MEDS: CARDURA PO (21:16)
[2025-04-22] MEDS: ROXICODONE 5 MG PO (23:05)
[2025-04-23] MEDS: ZOSYN 50 IV ×4 (01:03→20:15)
[2025-04-23] MEDS: TYLENOL 650 MG PO (01:38)
[2025-04-23 03:18] VITALS: BP 116/60
[2025-04-23] MEDS: ROXICODONE 5 MG PO ×4 (05:04→20:19)
[2025-04-23 06:34] LABS: Hematocrit 32.7 % (39.0-52.0); Hemoglobin 10.5 g/dL (13.0-18.0); Mean Corp Hgb Conc. 32.1 g/dL (33.0-37.0); Mean Corpuscular Volume 100.0 fL (80.0-94.0); Nucleated Red Blood Cells % 0 % (-); Platelet Count 167 10^3/uL (130-400); Red Cell Dist. Width 14.0 % (11.5-14.5)
[2025-04-23 06:59] LABS: Chloride 104 mmol/L (98-107)
[2025-04-23 07:00] LABS: ALT (SGPT) 444 U/L (0-50); Albumin 3.0 g/dl (3.5-5.0); Alkaline Phosphatase 243 U/L (38-126); Blood Urea Nitrogen 36 mg/dl (9-20); Calcium 8.1 mg/dl (8.4-10.2); Carbon Dioxide 25 mmol/L (22-30); Estimated Creatinine Clearance 22 ml/min; Glucose 156 mg/dl (70-99); Potassium 4.6 mmol/L (3.5-5.1); Sodium 137 mmol/L (135-145); Total Protein 5.3 g/dl (6.3-8.2); eGFR 34.14
[2025-04-23 07:14] LABS: AST (SGOT) 804 U/L (17-59)
[2025-04-23 07:40] VITALS: BP 92/66
[2025-04-23] MEDS: LIPITOR PO (08:39)
[2025-04-23 08:45] LABS: Lipase 37 U/L (23-300)
--- NOTE | 2025-04-23 08:54 | CM ---
Reviewed the chart notes. Patient is s/p laparoscopic cholecystectomy with intraoperative cholangiogram yesterday. CM continues to be available to patient/family and is monitoring medical plan for needs at discharge.
Plan: Discharge to home when medically stable. No needs anticipated at this time.
--- NOTE | 2025-04-23 08:58 | W.PN.GS2 ---
Today's Communication / Plan
-
-- Clears
-- Abx: Zosyn, will need 5 days post-operatively
-- Repeat CMP this afternoon, may need GI if continues to rise]
-- Continue to monitor in Hospital setting for today
Assessment / Plan
-
Patient is an 84 yo M POD#1 s/p laparoscopic cholecystectomy with IOC
AVSS, BP noted to be soft
Labs notable for downtrending WBC, stable Hb, normal electrolytes, increased Cr, elevated bilirubin, LFTs, and ALP, normal lipase
Elevated bilirubin and LFTs likely related to passage of sludge and debris, possibly related to intraoperative manipulation of the CBD and ampulla with cholangiogram catheter, less likely injury or leak. Overall clinically stable with no reports of
worsening abdominal pain fevers, or elevated WBC. Recommend clears in case further procedural intervention needed. Repeat CMP this afternoon. Continue hydration given elevated creatinine, likely prerenal, meds reviewed (further workup and
management per hospitalist).
-- Clears
-- Pain control: Tylenol, Oxycodone, IV Dilaudid PRN
-- Abx: Zosyn, will need 5 days post-operatively
-- Repeat CMP this afternoon, may need GI if continues to rise
-- DVT: SQH
-- Continue to monitor in Hospital setting for today
Subjective Data
-
Date of Service: April 23, 2025
RUQ discomfort with movement, well-controlled at rest. Nausea overnight, none currently. No episodes of vomiting. No fevers.
Objective Data
-
Intake and Output
04/22/25 04/23/25 04/24/25
06:59 06:59 06:59
Intake Total 1390 / 1390 1630 / 1630
Output Total 125 / 125
Balance 1390 / 1390 1505 / 1505
Intake:
Oral fluids 240 / 240 480 / 480
IV fluids (Total) 1100 / 1100 950 / 950
normosol 50 / 50
IV piggybacks 50 / 50 200 / 200
Output:
Urine, Voided 125 / 125
Other:
Number of approximated MODERATE 4 5
amounts of urine
Vital Signs
Temp Pulse Resp BP Pulse Ox
98.0 F 64 16 92/66 95
04/23/25 07:40 04/23/25 07:40 04/23/25 07:40 04/23/25 07:40 04/23/25 07:40
Lab Results
04/23/25 05:16
04/23/25 05:16
Calcium 8.1 mg/dl (8.4-10.2) L 04/23/25 05:16
Magnesium 1.6 mg/dl (1.6-2.3) 04/22/25 06:15
Total Bilirubin 2.0 mg/dl (0.2-1.3) H D 04/23/25 05:16
AST 804 U/L (17-59) H* 04/23/25 05:16
ALT 444 U/L (0-50) H 04/23/25 05:16
Alkaline Phosphatase 243 U/L (38-126) H 04/23/25 05:16
Total Protein 5.3 g/dl (6.3-8.2) L D 04/23/25 05:16
Albumin 3.0 g/dl (3.5-5.0) L 04/23/25 05:16
Physical Exam
-
Gen: NAD
Abd: soft, tender in RUQ, ND, non-peritoneal, incisions c/d/i - no erythema, ecchymosis or drainage
Patient has a watson catheter: No
Patient has a central line: No
[2025-04-23 11:05] VITALS: BP 108/72
[2025-04-23] MEDS: LR 1000 IV (11:42)
[2025-04-23 13:18] LABS: ALT (SGPT) 334 U/L (0-50); AST (SGOT) 584 U/L (17-59); Albumin 3.0 g/dl (3.5-5.0); Alkaline Phosphatase 227 U/L (38-126); Total Protein 5.3 g/dl (6.3-8.2)
[2025-04-23] MEDS: PROTONIX 40 MG PO (14:37)
--- NOTE | 2025-04-23 14:58 | W.PN.HOSP.TC ---
Today's Communication/Plan
-
IV antibiotics
Clear liquid diet
Follow CMP
IV fluids gently
Hold losartan
Follow renal function
Assessment / Plan
Assessment / Plan
Impression:
Presentation with acute onset of right upper quadrant pain.
Acute calculous cholecystitis.
Hyperkalemia
Conditions prior to admission:
Severe aortic stenosis.
Essential hypertension.
CKD stage IIIb with baseline creatinine 1.6
Renal artery stenosis
Chronic microcytic anemia
Preoperative clearance
RCRI patient without any history of ischemic heart disease. Known CKD stage IIIb with stable renal function. Aortic stenosis with currently compensated volume status
Overall risk less than 1%
Functional capacity greater than 4 METS
Known severe aortic stenosis well with good exercise capacity and compensated volume status upon presentation
No additional workup required prior to surgery.
Plan:
Acute calculous cholecystitis
Status post laparoscopic cholecystectomy with intraoperative cholangiogram on 04/22
LFTs trending down. Follow CMP in a.m.
Clear liquid diet as per surgery
IV antibiotics: Zosyn.
Acute on chronic microcytic anemia
Hemoglobin 12�10
Follow-up H&H in the morning
EWA on CKD stage IIIb baseline creatinine 1.6
Known renal artery stent
Creatinine up to 1.9
Hypotensive perioperatively
Hyperkalemia upon presentation improved
Holding parameters on doxazosin
Continue holding losartan
Follow BMP.
Aortic stenosis
Echo 05/08.
1. Ejection fraction is 55-60% by visual assessment. Basal inferior hypokinesis.
2. Right ventricular size and systolic function are within normal limits.
3. Severe aortic stenosis; peak/mean gradients 71/41 mmHg, calculated SUZY is 0.78 cm².
4. Mild to moderate aortic regurgitation.
5. Mild to moderate tricuspid regurgitation. Estimated pulmonary artery pressure of 28 mmHg assuming a right atrial pressure of 3 mmHg.
6. Compared to a prior transthoracic echocardiogram study from 05/21/2024, progressive aortic stenosis is noted, now severe.
Recent ED visit with syncopal episode presumed to be vasovagal.
Monitor volume status and hemodynamics closely
Anticipated Discharge: 24 - 48 hours
Subjective/Interval History
-
Date of Service: April 23, 2025
Objective Data
-
Labs:
Laboratory Results
04/23/25 04/23/25
05:16 12:10
WBC 11.2 H
Hgb 10.5 L
Hct 32.7 L
Plt Count 167
Sodium 137
Potassium 4.6
Chloride 104
Carbon Dioxide 25
BUN 36 H
Creatinine 1.9 H
Glucose 156 H
Calcium 8.1 L
Total Bilirubin 2.0 H D 1.3
AST 804 H* 584 H*
ALT 444 H 334 H
Alkaline Phosphatase 243 H 227 H
Vital Signs:
Vital Signs
Temp Pulse Resp BP Pulse Ox
98.3 F 78 18 108/72 96
04/23/25 11:05 04/23/25 11:05 04/23/25 11:05 04/23/25 11:05 04/23/25 11:05
I&O
04/22/25 04/23/25 04/24/25
06:59 06:59 06:59
Intake Total 1390 / 1390 1630 / 1630 480 / 480
Output Total 125 / 125
Balance 1390 / 1390 1505 / 1505 480 / 480
Physical Exam
-
General: Well Developed and No Apparent Distress
HEENT: Normocephalic, Atraumatic and Moist Mucous Membranes
Respiratory: Clear to Auscultation
Cardiac: Regular Rhythm, S1/S2 and Murmur (Left sternal border systolic 4 out of 6); Negative Rub or Gallop
GI: Soft, Nontender (Right upper quadrant tenderness), Nondistended and Normal Bowel Sounds; Negative Organomegaly
Rectal: Deferred by Provider
Musculoskeletal: No Clubbing, No Cyanosis and No Edema
Skin: Negative Rash
Neuro: Nonfocal/Grossly Intact
[2025-04-23 15:40] VITALS: BP 119/65
[2025-04-23 19:31] VITALS: BP 111/60
[2025-04-23] MEDS: ZOFRAN 4 MG IV (22:22)
[2025-04-23] MEDS: CARDURA 2 MG PO (22:22)
[2025-04-23 23:01] VITALS: BP 134/70
[2025-04-24] MEDS: ZOSYN 50 IV ×2 (01:20→08:54)
[2025-04-24] MEDS: LR 1000 IV (02:10)
[2025-04-24] MEDS: LR IV (02:12)
[2025-04-24 06:42] LABS: Hematocrit 28.3 % (39.0-52.0); Hemoglobin 9.2 g/dL (13.0-18.0); Mean Corp Hgb Conc. 32.5 g/dL (33.0-37.0); Mean Corpuscular Volume 99.0 fL (80.0-94.0); Platelet Count 136 10^3/uL (130-400); Red Cell Dist. Width 14.3 % (11.5-14.5)
[2025-04-24 07:18] LABS: ALT (SGPT) 236 U/L (0-50); AST (SGOT) 334 U/L (17-59); Albumin 2.7 g/dl (3.5-5.0); Alkaline Phosphatase 175 U/L (38-126); Blood Urea Nitrogen 37 mg/dl (9-20); Calcium 8.2 mg/dl (8.4-10.2); Carbon Dioxide 27 mmol/L (22-30); Chloride 108 mmol/L (98-107); Estimated Creatinine Clearance 22 ml/min; Glucose 117 mg/dl (70-99); Potassium 4.5 mmol/L (3.5-5.1); Sodium 139 mmol/L (135-145); Total Protein 5.1 g/dl (6.3-8.2); eGFR 34.14
[2025-04-24 07:45] VITALS: BP 124/66
[2025-04-24] MEDS: PROTONIX 40 MG PO (08:54)
[2025-04-24] MEDS: TYLENOL 650 MG PO (09:09)
[2025-04-24] MEDS: LIPITOR 10 MG PO (09:11)
--- NOTE | 2025-04-24 12:10 | W.PN.HOSP.TC ---
Addendum entered and electronically signed by Robert Santillan MD 04/24/25 16:27:
[id number]
Original Note:
Today's Communication/Plan
-
augmentin x 3 more days
holding losartan
LFD
F/u Surg, PCP, Cards outpt
f/u labs outpatient
Assessment / Plan
Assessment / Plan
Impression:
Presentation with acute onset of right upper quadrant pain.
Acute calculous cholecystitis.
Hyperkalemia
Conditions prior to admission:
Severe aortic stenosis.
Essential hypertension.
CKD stage IIIb with baseline creatinine 1.6
Renal artery stenosis
Chronic microcytic anemia
Preoperative clearance
RCRI patient without any history of ischemic heart disease. Known CKD stage IIIb with stable renal function. Aortic stenosis with currently compensated volume status
Overall risk less than 1%
Functional capacity greater than 4 METS
Known severe aortic stenosis well with good exercise capacity and compensated volume status upon presentation
No additional workup required prior to surgery.
Plan:
Acute calculous cholecystitis
Sepsis
Transaminitis
Status post laparoscopic cholecystectomy with intraoperative cholangiogram on 04/22
LFTs trending down. Improving - can f/u oupt
Adv diet to LFD
IV antibiotics: Zosyn. - dc on augmentin x 3 more days
Acute on chronic microcytic anemia
Hemoglobin 12�10
Follow-up H&H in the morning
CKD stage IIIb
Known renal artery stent
Hypotensive perioperatively
Hyperkalemia upon presentation improved
Holding parameters on doxazosin
Continue holding losartan - f/u outpt
Aortic stenosis
Echo 05/08.
1. Ejection fraction is 55-60% by visual assessment. Basal inferior hypokinesis.
2. Right ventricular size and systolic function are within normal limits.
3. Severe aortic stenosis; peak/mean gradients 71/41 mmHg, calculated SUZY is 0.78 cm².
4. Mild to moderate aortic regurgitation.
5. Mild to moderate tricuspid regurgitation. Estimated pulmonary artery pressure of 28 mmHg assuming a right atrial pressure of 3 mmHg.
6. Compared to a prior transthoracic echocardiogram study from 05/21/2024, progressive aortic stenosis is noted, now severe.
Recent ED visit with syncopal episode presumed to be vasovagal.
Monitor volume status and hemodynamics closely
F/u Cards outpt
More than 30 minutes spent in discharge including
Final examination of the patient
Summarizing hospital stay
Instructions for continuing care to all relevant caregivers
Preparation of discharge records, prescriptions, and referral forms
Total time spent (in minutes): 36
Anticipated Discharge: Today
Subjective/Interval History
-
Date of Service: April 24, 2025
no acute events, liver enzymes improving, tolerating diet
Objective Data
-
Labs:
Laboratory Results
04/24/25
06:24
WBC 9.5
Hgb 9.2 L
Hct 28.3 L
Plt Count 136
Sodium 139
Potassium 4.5
Chloride 108 H
Carbon Dioxide 27
BUN 37 H
Creatinine 1.9 H
Glucose 117 H
Calcium 8.2 L
Total Bilirubin 0.7
AST 334 H
ALT 236 H
Alkaline Phosphatase 175 H
Vital Signs:
Vital Signs
Temp Pulse Resp BP Pulse Ox
97.5 F 62 16 124/66 94
04/24/25 07:45 04/24/25 07:45 04/24/25 07:45 04/24/25 07:45 04/24/25 07:45
I&O
04/23/25 04/24/25 04/25/25
06:59 06:59 06:59
Intake Total 1630 / 1630 960 / 960
Output Total 125 / 125
Balance 1505 / 1505 960 / 960
Review of Systems
-
History Source: Patient
All other systems: Not reviewed unless documented
Data Reviewed
-
CT Scan: Report Reviewed by me
Labs: Labs Reviewed by me
--- NOTE | 2025-04-24 12:13 | W.DS.TRANS ---
DC Summary - Stopping Builder
-
Discharge Instructions:
Discharge Diagnosis/Procedures Acute calculous cholecystitis s/p laparoscopic
cholecystectomy with IOC
Diet As tolerated,Low Fat
Activity No strenuous activity
Bathing Restrictions OK to Shower
Blood Work cbc and cmp in 1 week with pcp
Instructions:
Stand-Alone Forms:
Changes to Home Medications: Yes
Discharge Medications:
DC Medications w/original date entered in backstitch
cholecalciferol (vitamin D3) 50 mcg (2,000 unit) capsule (Vitamin D3) 50 mcg PO DAILY Supplement 04/21/25
cyanocobalamin (vitamin B-12) 1,000 mcg tablet 1,000 mcg PO DAILY Supplement 04/21/25
doxazosin 2 mg tablet 2 mg PO HS Blood Pressure 04/21/25
losartan 100 mg tablet 100 mg PO DAILY Blood Pressure 04/21/25
Held on 04/24/25. Instructions: Resume on 05/05/25. until cleared by PCP with BMP (checking kidney function)
simvastatin 20 mg tablet (Zocor) 20 mg PO DAILY High Cholesterol 04/21/25
testosterone 1 pump topical DAILY Hormonal Agent 04/21/25
therapeutic multivitamin 1 tab PO DAILY Supplement 04/21/25
vitamin E 268 mg (400 unit) capsule 268 mg PO DAILY Supplement 04/21/25
acetaminophen 325 mg tablet 650 mg (2 x 325 mg) PO Q4HPRN PRN mild pain/OREILLY/temp> 100.4F #180 tabs 04/24/25
amoxicillin 875 mg-potassium clavulanate 125 mg tablet 1 tab PO Q12H 3 days #6 tabs 04/24/25
Home Medication Changes
acetaminophen 325 mg tablet 650 mg (2 x 325 mg) PO Q4HPRN PRN mild pain/OREILLY/temp> 100.4F #180 tabs 04/24/25
amoxicillin 875 mg-potassium clavulanate 125 mg tablet 1 tab PO Q12H 3 days #6 tabs 04/24/25
Pending Results: No
[2025-04-24 12:35] VITALS: BP 102/50
--- NOTE | 2025-04-24 13:21 | W.PN.GS2 ---
Today's Communication / Plan
-
-- Okay for discharge.
-- Postop instructions (diet, meds. wound care, activity) and follow-up provided. His was present, all questions answered.
-- Final path pending.
Assessment / Plan
-
Patient is an 84 yo M POD#2 s/p laparoscopic cholecystectomy with IOC
AVSS,
WBC now normal and normalizing LFT's
Elevated bilirubin and LFTs likely related to passage of sludge and debris, possibly related to intraoperative manipulation of the CBD and ampulla with cholangiogram catheter, less likely injury or leak. Overall clinically stable with no reports of
worsening abdominal pain fevers, or elevated WBC.
-- Low fat diet
-- Pain control: Tylenol, Oxycodone, IV Dilaudid PRN
-- Abx: Zosyn, will need 5 days post-operatively
-- DVT: SQH
-- OK for discharge from surgery standpoint.Continue to monitor in Hospital setting for today
Subjective Data
-
Date of Service: April 24, 2025
Some incisional discomfort. Tolerating a low fat diet without issues.
Objective Data
-
Intake and Output
04/23/25 04/24/25 04/25/25
06:59 06:59 06:59
Intake Total 1630 / 1630 960 / 960
Output Total 125 / 125
Balance 1505 / 1505 960 / 960
Intake:
Oral fluids 480 / 480 960 / 960
IV fluids (Total) 950 / 950
normosol 50 / 50
IV piggybacks 200 / 200
Output:
Urine, Voided 125 / 125
Other:
Number of approximated MODERATE 5 3
amounts of urine
Vital Signs
Temp Pulse Resp BP Pulse Ox
98.1 F 67 16 102/50 95
04/24/25 12:35 04/24/25 12:35 04/24/25 12:35 04/24/25 12:35 04/24/25 12:35
Lab Results
04/24/25 06:24
04/24/25 06:24
Calcium 8.2 mg/dl (8.4-10.2) L 04/24/25 06:24
Magnesium 1.6 mg/dl (1.6-2.3) 04/22/25 06:15
Total Bilirubin 0.7 mg/dl (0.2-1.3) 04/24/25 06:24
Direct Bilirubin 1.2 mg/dl (0.0-0.4) H 04/23/25 12:10
AST 334 U/L (17-59) H 04/24/25 06:24
ALT 236 U/L (0-50) H 04/24/25 06:24
Alkaline Phosphatase 175 U/L (38-126) H 04/24/25 06:24
Total Protein 5.1 g/dl (6.3-8.2) L 04/24/25 06:24
Albumin 2.7 g/dl (3.5-5.0) L 04/24/25 06:24
Physical Exam
-
NAD
Abd: soft and nontender. The incisions are clean.
Patient has a watson catheter: No
Patient has a central line: No
== END 2025-04-24 14:36 | disposition home or self-care (01) | DRG 418 ==
LOC: 2 SOUTH 20:44
PROVIDERS: Emergency Medicine; Internal Medicine; Registered Nurse; ADMITTING PHYSICIAN Internal Medicine; ATTENDING PHYSICIAN Internal Medicine; CONSULT PHYSICIAN Surgery; EMERGENCY PHYSICIAN Emergency Medicine; REFERRING PHYSICIAN Physician Assistant Medical
PROC: 0FT44ZZ Resection of Gallbladder, Percutaneous Endoscopic Approach (ICD-10-PCS; 2025-04-22)
DX: K80.00 Calculus of gallbladder with acute cholecystitis without obstruction (principal); I96 Gangrene, not elsewhere classified; K82.1 Hydrops of gallbladder; I10 Essential (primary) hypertension; E87.5 Hyperkalemia; K59.00 Constipation, unspecified; Z87.442 Personal history of urinary calculi
CPT/HCPCS: 74176; 74300; 76000; 76705; 80048; 80053; 80076; 81003; 81015; 83690; 83735; 85025; 85027; 88304; 93306; 96361; 96374; 96375; 99285; A4300

== ENCOUNTER 2025-06-15 07:39 | Emergency (ER) | payer MEDICARE, OTHER, SELFPAY ==
[2025-06-15 07:45] VITALS: BP 132/66; BMI 21.5
--- NOTE | 2025-06-15 07:54 | ED.MUSCINJ ---
HPI-Injury
General
Chief Complaint: Fall
Source: patient and records (Recent admission for cholecystitis)
Exam Limitations: none
Time Seen by Provider: 06/15/25 07:41
Nursing documentation reviewed up to this point in time: agreed with
History of Present Illness-Injury
Is this injury a work related problem?: No
Is pt an associate of [facility]/[place]?: No
Initial Injury comments:
85-year-old male via EMS was in bed stood up slipped fell struck his head his left elbow, no chest pain or shortness of breath no fever chills no abdominal pain no headache no pain in his elbow he does have a skin tear there, no fevers has
gallbladder taken out recently states he has been recovering from that well, patient tells me has had vasovagal episodes previous
Past History
Past History
ED Past Medical History: HTN, Hypercholesterolemia and Other (BPH, Kidney stones, Double vision corrected with glasses,)
ED Past Surgical History: Cholecystectomy and Orthopedic (bilateral knee surgery)
Social History
Tobacco: Non-smoker
Alcohol: Daily (wine 1 glass)
Drug: None
Personal:
Living: with family
Employment: Retired
Review of Systems
Review of Systems
All Other Systems: Not applicable
Constitutional: Denies fever or fatigue
EENT: Reports no symptoms
Respiratory: Reports no symptoms
Cardiac: Reports no symptoms
ABD/GI: Reports no symptoms
: Reports no symptoms
Musculoskeletal: Reports no symptoms
Phy Exam
Physical Exam
Physical Exam:
Physical Exam
General: no apparent distress, not acutely ill
Neck: Small contusion over the left restorationist no posterior neck pain no tongue
Heart: Regular
Lungs: no acute respiratory distress. clear bilaterally
Abdomen: Nontender
Neuro: alert and oriented. no focal neurological deficits
Skin: no rash
Psychiatric: well kept. interactive and cooperative
Extremities: Skin tear over the left elbow full range of motion
Injury Course
Orders/Labs/Results
Orders:
Orders
06/15/25 07:49
CT Cervical Spine W/o Iv Contr Urgent
Comment:
Reason For Exam: fall
CT Head W/o Iv Contrast Urgent
Comment:
Reason For Exam: fall
Cardiac Monitoring- Treatment ONCE
Tetanus/Diphth/Acelpertussis [Adacel] 0.5 ml IM .ONCE ONE
Elbow, 3 view, Left [CR Elbow - Left Min 3 Views ] Urgent
Comment:
Reason For Exam: fall
MDM/Problems Addressed
Differential Diagnosis Includes:
Slip and fall contusion skin tear doubt significant intracerebral hemorrhage or elbow fracture,
MDM/Problems Addressed:
Fall
Chronic conditions affecting care: HTN
Acute Exacerbation and/or Progression of Chronic Illness: HTN
*Radiology
Radiology exam reviewed: radiology read reviewed
*Pulse Oximetry
SaO2: 95
Patient hypoxic: no
*Sales Audit Clerk Interpretation
Rate: normal
Interpretation: normal
Heart Rate: 78
Rhythm: sinus
*Critical Care Note
Total Time (30-74mins, 75-104mins- exclusive of procedures): Not Applicable
ED Attending Note
-
Portions of this chart may have been created with voice recognition software.� Occasional wrong word or��sound alike� substitutions may have occurred due to the inherent limitations of voice recognition software.
Discharge Plan
Departure
Prescriptions:
No Action
simvastatin [Zocor] 20 mg Tablet
20 mg PO DAILY
cyanocobalamin (vitamin B-12) 1,000 mcg Tablet
1,000 mcg PO DAILY
therapeutic multivitamin Tablet
1 tab PO DAILY
losartan 100 mg Tablet
100 mg PO DAILY
vitamin E 268 mg (400 unit) Capsule
268 mg PO DAILY
doxazosin 2 mg Tablet
2 mg PO HS
cholecalciferol (vitamin D3) [Vitamin D3] 50 mcg (2,000 unit) Capsule
50 mcg PO DAILY
testosterone 20.25 mg/1.25 gram (1.62 %) Gel In Metered-Dose Pump
1 pump TOPICAL DAILY
acetaminophen 325 mg Tablet
650 mg PO Q4HPRN PRN (Reason: mild pain/OREILLY/temp> 100.4F) Qty: 180 0RF
amoxicillin-pot clavulanate 875-125 mg tablet
1 tab PO Q12H 3 Days Qty: 6 0RF
Discharge Date and Time
Print Language: MICRONESIAN
[2025-06-15 08:00] VITALS: BP 144/128
[2025-06-15 09:34] VITALS: BP 120/88
[2025-06-15] MEDS: ADACEL 0.5 ML IM (09:43)
[2025-06-15 10:01] VITALS: BP 120/88
== END 2025-06-15 10:06 | disposition home or self-care (01) ==
LOC: EMR 07:39
PROVIDERS: EMERGENCY PHYSICIAN Emergency Medicine; FAMILY PHYSICIAN Family Medicine
DX: S00.83XA Contusion of other part of head, initial encounter (principal); S51.012A Laceration without foreign body of left elbow, initial encounter; W01.0XXA Fall on same level from slipping, tripping and stumbling without subsequent striking against object, initial encounter; I10 Essential (primary) hypertension; E78.00 Pure hypercholesterolemia, unspecified; N40.0 Benign prostatic hyperplasia without lower urinary tract symptoms; Z90.49 Acquired absence of other specified parts of digestive tract; Z87.442 Personal history of urinary calculi; Z23 Encounter for immunization
CPT/HCPCS: 99284; 90471; 70450; 72125; 73080; 90715

== ENCOUNTER 2025-06-19 18:10 | Observation (INO) | payer MEDICARE, OTHER, SELFPAY ==
[2025-06-19] VITALS (8 sets, daily range): BP systolic 92–153; BP diastolic 53–79; BMI 21.7; BMI 20.3
--- NOTE | 2025-06-19 13:27 | EDRN ---
Dr. Toribio in room w/ pt at this time.
--- NOTE | 2025-06-19 13:33 | ED.CVA ---
History of Present Illness
General
Chief Complaint: CVA/TIA Symptoms
Time Seen by Provider: 06/19/25 13:22
Onset of Stroke Symptoms
Onset of symptoms known: Yes
Date of onset of symptoms: 06/19/25
Time of onset of symptoms: 12:30
History of Present Illness
History of Present Illness:
Patient presents to the emergency department with resolved neurologic episode. States around 12:30 PM he suddenly felt weak in his left arm and bilateral lower extremities. Denies fall or injury. States this lasted for about 10 minutes and
completely resolved at this time. Denies persistent weakness or pain. Denies change in vision. Denies headache. Denies difficulty speaking.
Past History
Past History
ED Past Medical History: HTN, Hypercholesterolemia and Other (BPH, Kidney stones, Double vision corrected with glasses,)
ED Past Surgical History: Cholecystectomy and Orthopedic (bilateral knee surgery)
Social History
Tobacco: Non-smoker
Alcohol: Daily (wine 1 glass)
Drug: None
Personal:
Living: with family
Employment: Retired
Phy Exam
Physical Exam
Physical Exam:
GENERAL APPEARANCE: No acute distress, well developed, well nourished
EYES lids/conjunctiva normal
EARS/NOSE/THROAT Mucous membranes moist, uvula midline without oral pharyngeal erythema, exudate or swelling
HEAD/NECK Normocephalic atraumatic, neck is supple.
RESPIRATORY respiratory effort normal, speaks in full sentences, no accessory muscle use. Lungs clear to auscultation without rhonchi, wheezes, rales
CARDIAC Regular rate and rhythm, no edema.
ABDOMINAL Soft, ND/NT.
MUSCLES/EXTREMITIES prior skin tear to left elbow
SKIN Warm, pink and dry. No rashes
NEUROLOGICAL normal mental status. Awake and alert. Oriented x3. CN2-12 intact. 5/5 strength in all extremities. Sensation intact to light touch throughout. No dysmetria or ataxia.
PSYCH Normal mood and affect. Judgement/competence is appropriate
Course
Orders/Labs/Results
Orders:
Orders
06/19/25 13:23
Electrocardiogram (*1) Urgent
Reason for Study: Chest Pain
Cardiac Monitoring- Treatment ONCE
IV Insert/Care/Rem.- Treatment PRN
06/19/25 13:24
EKG- Treatment ONCE
06/19/25 13:25
Complete Blood Count/With Diff Urgent
Comprehensive Metabolic Panel Urgent
Troponin I Urgent
06/19/25 13:31
CT Head W/o Iv Contrast Urgent
Comment:
Reason For Exam: tia
06/19/25 13:32
Electrocardiogram (*1) Stat
Reason for Study: Other
Other Reason for Exam: neuro symptoms
06/19/25 13:33
CR Chest - 2 Views Urgent
Comment:
Reason For Exam: weakness
06/19/25 14:09
Troponin I Urgent
06/19/25 14:54
Urinalysis Reflex To Culture Urgent
Date Specimen was Collected: 06/19/25
Time Specimen was Collected: 14:52
Urine Microscopic Reflex Cult Urgent
Urine Culture Urgent
SUZE Source: U
Specimen Description:
Date Specimen was Collected: 06/19/25
Time Specimen was Collected: 14:52
06/19/25 15:55
Aspirin 325 mg PO NOW STA
06/19/25 17:42
Admit/Transfer Patient As Directed
Co-Sign Provider:
Level of Care: Observation services
Assign to:: Telemetry
Physician / Group: [email or web address]
Diagnosis: TIA
Reason for Telemetry: CVA/TIA
Date to Stop Telemetry: 06/22/25
Time to Stop Telemetry: 11:00
Reason for Hospitalization: Evaluation for TIA vs CVA for 3 episodes of sudden onset L UEx + B/L Cortez
weakness
06/19/25 17:44
Code Status As Directed
Resuscitation Status: Full Code
06/22/25 11:00
DC Protocol for Telemetry ONCE
Abnormal Lab Results
06/19/25 06/19/25
13:25 14:54
RBC 3.54 L 10^6/uL
(4.70-6.10)
Hgb 11.7 L g/dL
(13.0-18.0)
Hct 35.8 L %
(39.0-52.0)
MCV 101.1 H fL
(80.0-94.0)
MCH 33.1 H pg
(27.0-31.0)
MCHC 32.7 L g/dL
(33.0-37.0)
RDW 15.0 H %
(11.5-14.5)
MPV 11.2 H fL
(7.4-10.4)
Absolute Lymphs (auto) 1.0 L 10^3/uL
(1.2-3.4)
Lymphocytes % 19.2 L %
(20.5-51.1)
Monocytes % 10.2 H %
(1.7-9.3)
Chloride 110 H mmol/L
(98-107)
BUN 33 H mg/dl
(9-20)
Creatinine 1.6 H mg/dL
(0.7-1.3)
Glucose 116 H mg/dl
(70-99)
Ur Occult Blood Reflex 3+ A
(Negative)
Urine RBC 40-50 A /HPF
(0-2)
Urine WBC (Reflex) 11-15 A /HPF
(0-5)
Urine Bacteria (Reflex) Few A
(Negative)
Urine Albumin (Reflex) 1+ A
(Neg - Trace)
06/19/25 13:25
12/06/25 13:25
Vital Signs
Initial and Last Documented VS:
Initial Vital Signs
Temp Pulse Resp Pulse Ox
97.7 F 73 18 97
06/19/25 13:16 06/19/25 13:16 06/19/25 13:16 06/19/25 13:16
Last Documented Vital Signs
Temp Pulse Resp BP Pulse Ox
97.7 F 68 20 121/61 95
06/19/25 13:16 06/19/25 17:15 06/19/25 17:15 06/19/25 16:00 06/19/25 17:00
*Pulse Oximetry
SaO2: 97
Oxygen Mode of Delivery: Room air
Patient hypoxic: no
*Critical Care Note
Total Time (30-74mins, 75-104mins- exclusive of procedures): Not Applicable
ED Attending Note
ED Attending Note
ED Attending Note:
hx of Stage 3 CKD, severe aortic stenosis, aortic regurgitation
has had two episodes in the past week where he suddenly develops L sided upper and bilateral lower extremity weakness
today episode occurred at around 1230pm. Lasted about 10 minutes
resolved on arrival to ER
CT head is negative
given aspirin 325mg
will need further workup including MRIs
neurology consulted, recommending MRA brain and MRA neck without contrast. Also MRI brain without contrast.
-
Portions of this chart may have been created with voice recognition software.� Occasional wrong word or��sound alike� substitutions may have occurred due to the inherent limitations of voice recognition software.
Discharge Plan
Departure
Patient Disposition: Admit
Date of Disposition: 06/19/25
Time of Disposition: 16:02
Presentation/result/management discussed w/ accepting MD/DO: Hospitalist
Discharge Problem:
Transient ischemic attack
Prescriptions:
No Action
simvastatin [Zocor] 20 mg Tablet
20 mg PO DAILY
cyanocobalamin (vitamin B-12) 1,000 mcg Tablet
1,000 mcg PO DAILY
therapeutic multivitamin Tablet
1 tab PO DAILY
vitamin E 268 mg (400 unit) Capsule
268 mg PO DAILY
doxazosin 2 mg Tablet
2 mg PO HS
cholecalciferol (vitamin D3) [Vitamin D3] 50 mcg (2,000 unit) Capsule
50 mcg PO DAILY
testosterone 20.25 mg/1.25 gram (1.62 %) Gel In Metered-Dose Pump
1 pump TOPICAL DAILY
losartan 100 mg Tablet
100 mg PO DAILY
Referrals:
UNKNOWN - PT DOES,NOT KNOW [Family Provider]
Interventions
Interventions:
*Risk Screen - Suicide Last Done: 06/19/25 13:16
*General Assessment Last Done: 06/19/25 13:16
*Neglect/Abuse Screening Last Done: 06/19/25 13:16
*ED COVID-19 Vaccine History Last Done: 06/19/25 14:01
*ED Influenza Vaccine History Last Done: 06/19/25 14:01
[facility] Fall Risk Assessment Tool Last Done: 06/19/25 14:00
ED- Pulmonary Assessment Last Done: 06/19/25 15:15
ED- Neurological Assessment Last Done: 06/19/25 15:15
ED- Cardiac Assessment Last Done: 06/19/25 15:15
ED Swallowing Screen Last Done: 06/19/25 15:15
Discharge Date and Time
Print Language: [place] CITIZ[place]
[2025-06-19 13:46] LABS: Hematocrit 35.8 % (39.0-52.0); Hemoglobin 11.7 g/dL (13.0-18.0); Mean Corp Hgb Conc. 32.7 g/dL (33.0-37.0); Mean Corpuscular Volume 101.1 fL (80.0-94.0); Nucleated Red Blood Cells % 0 % (-); Platelet Count 192 10^3/uL (130-400); Red Cell Dist. Width 15.0 % (11.5-14.5)
[2025-06-19 13:58] LABS: ALT (SGPT) 49 U/L (0-50); AST (SGOT) 43 U/L (17-59); Albumin 3.9 g/dl (3.5-5.0); Alkaline Phosphatase 118 U/L (38-126); Blood Urea Nitrogen 33 mg/dl (9-20); Calcium 9.1 mg/dl (8.4-10.2); Carbon Dioxide 23 mmol/L (22-30); Chloride 110 mmol/L (98-107); Estimated Creatinine Clearance -13 ml/min; Glucose 116 mg/dl (70-99); Potassium 5.1 mmol/L (3.5-5.1); Sodium 138 mmol/L (135-145); Total Protein 6.6 g/dl (6.3-8.2); eGFR 41.70
[2025-06-19 14:09] LABS: Troponin I 0.022 ng/ml
--- NOTE | 2025-06-19 14:17 | EDRN ---
Set #2 of blood cultures drawn and sent at this time.
[2025-06-19 14:51] LABS: Troponin I 0.018 ng/ml
[2025-06-19 15:10] LABS: Urine Character Clear (Clear)
[2025-06-19 16:06] LABS: Urine Red Blood Cell 40-50 /HPF (0-2); Urine Squamous Cell 0-2 /LPF (Few)
[2025-06-19] MEDS: ASPIRIN 325 MG PO (16:06)
--- NOTE | 2025-06-19 17:08 | HPS.HSE ---
Family Physician
-
Family Physician: NOT KNOW UNKNOWN - PT DOES
Chief Complaint
-
At 12:30 PM he suddenly felt weak in his left arm and bilateral lower extremities
History of Present Illness
85M Non smoker
PMH: CKD3, severe aortic stenosis, aortic regurgitation sen at ER:
- pw two episodes in the past week where he suddenly develops L sided upper and bilateral lower extremity weakness
- today similar episode occurred at around 1230pm - lasted about 10 minutes
- resolved on arrival to ER
- NEG HCT
- Loading dose ASA 325mg by ER
Medical History
Past Medical History
Past Medical History: Reports Other
Additional Past Medical History:
Hypertension, hyperlipidemia, BPH, nephrolithiasis,
Past Surgical History: Reports Orthopedic (Bilateral knee replacement)
Social History
Tobacco: Non-smoker
Alcohol: None
Drug: None
Family History
Family History: Not pertinent
Allergies / Home Medications
Allergies reflects when Allergies were last updated in [facility].
Home Medications with original date entered in [facility]
Allergy/Medication List:
Allergies
Allergy/AdvReac Type Severity Reaction Status Date / Time
No Known Allergies Allergy Verified 03/29/25 14:04
Allergies
Allergy/AdvReac Type Severity Reaction Status Date / Time
No Known Allergies Allergy Verified 06/19/25 13:15
Home Medications
cholecalciferol (vitamin D3) 50 mcg (2,000 unit) capsule (Vitamin D3) 50 mcg PO DAILY Supplement 04/21/25
cyanocobalamin (vitamin B-12) 1,000 mcg tablet 1,000 mcg PO DAILY Supplement 04/21/25
doxazosin 2 mg tablet 2 mg PO HS Blood Pressure 04/21/25
simvastatin 20 mg tablet (Zocor) 20 mg PO DAILY High Cholesterol 04/21/25
testosterone 1 pump topical DAILY Hormonal Agent 04/21/25
therapeutic multivitamin 1 tab PO DAILY Supplement 04/21/25
vitamin E 268 mg (400 unit) capsule 268 mg PO DAILY Supplement 04/21/25
losartan 100 mg tablet 100 mg PO DAILY 06/19/25
Review of Systems
-
Constitutional: Reports No Symptoms
EENT: Reports No Symptoms
Respiratory: Reports No Symptoms
Cardiac: Reports No Symptoms
Abdomen/GI: Reports No Symptoms
: Reports No Symptoms
Musculoskeletal: Reports No Symptoms
Skin: Reports No Symptoms
Neurological: Reports See HPI
Endocrine: Reports No Symptoms
Hematologic/Lymphatic: Reports No Symptoms
Psych: Reports No Symptoms
Physical Exam
Vital Signs
Vital Signs
Temp Pulse Resp BP Pulse Ox
97.7 F 70 20 121/61 97
06/19/25 13:16 06/19/25 16:15 06/19/25 16:15 06/19/25 16:00 06/19/25 16:15
Physical Exam
General: Well Developed, Well Nourished and No Apparent Distress
HEENT: NormoCephalic, Moist mucous membranes and Atraumatic
Respiratory: Clear
Cardiac: S1/S2, Regular Rhythm and Murmur (ejection SM at apex ); No Rub
GI: Soft, Non Tender, Non Distended and Normal Bowel Sounds; No Organomegaly
Rectal: Deferred by Provider
Musculoskeletal: No Clubbing, No Cyanosis and No Edema
Skin: No Rash
Neuro: Nonfocal/grossly intact
Laboratory Results
-
06/19/25 13:25
06/19/25 13:25
Labs
Total Bilirubin 0.5 mg/dl (0.2-1.3) 06/19/25 13:25
AST 43 U/L (17-59) 06/19/25 13:25
ALT 49 U/L (0-50) 06/19/25 13:25
Alkaline Phosphatase 118 U/L (38-126) 06/19/25 13:25
Troponin I 0.018 ng/ml 06/19/25 14:09
Impression/Plan
-
Vital Signs
Temp Pulse Resp BP Pulse Ox
97.7 F 70 20 121/61 97
06/19/25 13:16 06/19/25 16:15 06/19/25 16:15 06/19/25 16:00 06/19/25 16:15
04/23/25 04/24/25 06/19/25
05:16 06:24 13:25
Hgb 10.5 L 9.2 L 11.7 L
Plt Count 192
Potassium 4.5 5.1
Carbon Dioxide 23
Creatinine 1.9 H 1.6 H
eGFR 34.14 41.70
04/20/25 TTE
1. LVEF 55-60% by visual assessment. Basal inferior hypokinesis.
2. Right ventricular size and systolic function are within normal limits.
3. Severe aortic stenosis; peak/mean gradients 71/41 mmHg, calculated SUZY is 0.78 cm².
4. Mild to moderate aortic regurgitation.
5. Mild to moderate tricuspid regurgitation. Estimated pulmonary artery pressure of 28 mmHg assuming a right atrial pressure of 3 mmHg.
6. Compared to a prior transthoracic echocardiogram study from 05/21/2024, progressive aortic stenosis is noted, now severe.
06/19/25 HCT
No acute intracranial abnormality noted.
06/15/25 HCT
No acute intracranial abnormality
Last hospitalist admission: 04/21/2025 -04/24/2025
DC Dx:
Acute calculous cholecystitis status post laparoscopic cholecystectomy with intraoperative cholangiography.
ASSESSMENT & PLAN
Evaluation for TIA vs CVA for 3 episodes of sudden onset L UEx + B/L Cortez weakness within 1 week
- each episode lasted 10 mins
- resolved rapidly at ER
- s/p loading dose of ASA 325 then daily babay ASA
- Switch to atorvastatin [address] of Simvastatin
- Lipids and A1C
- cannot have Contrast CTA of H & N due to CKD3b
- As per ER attending d/w Neuro - can have MRA brain without contrast and and MRA neck without contrast
- Neuro consulted
Chronic microcytic anemia
Hemoglobin 11s
- FU Hg in AM
CKD3b: current Cr 1.6
- Baseline Cr hi 1s, eGFR 34
- Known renal artery stent
- on doxazosin
- c/w losartan - trend Cr
Severe - progressive
04/20/25 TTE : LVEF 55-60%, Severe with peak/mean gradients 71/41 mmHg, calculated SUZY is 0.78 cm².
HX syncopal episode presumed to be vasovagal.
- OP Card f/u
pHTN
- on CIVIL CAD DESIGNER Losartan
DVT Px: SCD
Full code
OBS TLM
[2025-06-19] MEDS: LIPITOR PO (20:22)
[2025-06-19] MEDS: CARDURA 2 MG PO (21:22)
[2025-06-20] VITALS (8 sets, daily range): BP systolic 97–121; BP diastolic 56–63; PULSE 67–69; O2SAT 69–97
[2025-06-20 08:43] LABS: HDL Cholesterol 31 mg/dl; LDL Cholesterol, Calculated 58 mg/dl; Very Low Density Lipoprotein 17 mg/dl (0-30)
[2025-06-20] MEDS: THERAGRAN 1 TABLET PO (08:45)
[2025-06-20] MEDS: VITAMIN D3 (cholecalciferol) 50 MCG PO (08:45)
[2025-06-20] MEDS: LOW STRENGTH ASPIRIN 81 MG PO (08:46)
[2025-06-20] MEDS: VITAMIN B-12 1000 MCG PO (08:46)
[2025-06-20] MEDS: COZAAR 100 MG PO (08:46)
--- NOTE | 2025-06-20 09:37 | CON.NEURO4 ---
Consultation - Neurology 4
-
CONSULTING PHYSICIAN: Dr. Stephen Adamson
REFERRING PHYSICIAN: Dr. Maria Del Carmen Vaughn
DICTATED BY: Dr. Stephen Adamson
DATE/TIME OF REQUEST: 06/20/2025
DATE/TIME OF CONSULTATION: 06/20/2025
Reason for Consultation: Transient ischemic attack
ASSESSMENT AND PLAN:
The patient is an 85 years old male, who presented to the hospital on 06/19/2025 with a complaint of weakness in the left arm and bilateral lower extremities that started at around 12:30 PM. The patient's symptoms resolved in about 10 minutes and he
returned to his baseline. At this time the patient says he is back to his baseline and he denies any speech difficulty, facial droop, numbness or weakness of arms and legs. The patient presented to the emergency department after resolution of his
symptoms. Denies change in vision. Denies headache. Denies difficulty speaking. The patient received a loading dose of 325 mg of aspirin. NIHSS = 0. The patient was not a candidate for thrombolytic therapy as his symptoms had resolved. The
patient was not on antiplatelet at home.
The patient appears to have a transient ischemic attack. Workup is in progress for the transient ischemic attack. The risk factors include hypertension and hyperlipidemia.
. CT head: No acute intracranial abnormality.
. Cannot have CTA head and neck due to CKD3b.
. MRI brain and MRA brain and MRA neck are pending.
. Aspirin 81 mg daily.
. Plavix 75 mg daily.
. Atorvastatin 40 mg daily.
History of Present Illness:
The patient is an 85 years old male, who presented to the hospital on 06/19/2025 with a complaint of weakness in the left arm and bilateral lower extremities that started at around 12:30 PM. The patient's symptoms resolved in about 10 minutes and he
returned to his baseline. At this time the patient says he is back to his baseline and he denies any speech difficulty, facial droop, numbness or weakness of arms and legs. The patient presented to the emergency department after resolution of his
symptoms. Denies change in vision. Denies headache. Denies difficulty speaking.
Past Medical History:
Hypertension, hyperlipidemia, BPH, nephrolithiasis
Surgical History:
Bilateral knee replacement.
Family History:
Not pertinent
Social History:
Non-smoker and does not drink.
Allergies:
No known drug allergies
Review of Systems:
The 10 point review of systems was negative aside from as given the above history of present illness.
Neurologic Examination:
Alert and oriented x 3,
Speech is clear,
The cranial nerves II through XII are grossly intact, The visual orozco are grossly full to confrontation bilaterally,
The motor strength is grossly 5/5 bilaterally,
The sensations are grossly intact,
The cerebellar examination does not show limb ataxia.
Vital Signs and Labs
-
Vital Signs and Labs:
Vital Signs
Temp Pulse Resp BP Pulse Ox
36.4 C 62 12 120/63 97
06/20/25 07:00 06/20/25 07:00 06/20/25 07:00 06/20/25 07:00 06/20/25 07:00
Lab Results
06/19/25 13:25
06/19/25 13:25
Sodium 138 mmol/L (135-145) 06/19/25 13:25
Potassium 5.1 mmol/L (3.5-5.1) 06/19/25 13:25
BUN 33 mg/dl (9-20) H 06/19/25 13:25
Glucose 116 mg/dl (70-99) H 06/19/25 13:25
Calcium 9.1 mg/dl (8.4-10.2) 06/19/25 13:25
LDL Cholesterol, Calc 58 mg/dl 06/20/25 07:15
Medications
-
Active Medications
Generic Name Dose Route Start Last Admin
Trade Name Freq PRN Reason Stop Dose Admin
Acetaminophen 650 mg 06/19/25 19:37
Acetaminophen 650 Mg Rectal Suppository RECTAL 07/17/25 19:36
Q4HPRN PRN
OREILLY, mild pain, or temp >100.4F
Acetaminophen 650 mg 06/19/25 19:37
Acetaminophen 325 Mg Tablet PO 07/17/25 19:36
Q4HPRN PRN
OREILLY, mild pain, or temp >100.4F
Aspirin 81 mg 06/20/25 08:00 06/20/25 08:46
Aspirin 81 Mg Chewable Tablet PO 07/18/25 07:59 81 mg
DAILY CALEB Administration
Atorvastatin Calcium 40 mg 06/19/25 19:37 06/19/25 20:22
Atorvastatin (Lipitor) 40 Mg Tablet PO 07/17/25 19:36 Not Given
QPM CALEB
Cholecalciferol 50 mcg 06/20/25 08:00 06/20/25 08:45
Cholecalciferol (Vitamin D3) 50 Mcg Tablet (2,000 Units) PO 07/18/25 07:59 50 mcg
DAILY CALEB Administration
Cyanocobalamin (Vitamin B12) 1,000 mcg 06/20/25 08:00 06/20/25 08:46
Cyanocobalamin (Vitamin B-12) 500 Mcg Tablet PO 07/18/25 07:59 1,000 mcg
DAILY CALEB Administration
Doxazosin Mesylate 2 mg 06/19/25 22:00 06/19/25 21:22
Doxazosin 2 Mg Tablet PO 07/17/25 21:59 2 mg
HS CALEB Administration
Lorazepam 1 mg 06/20/25 08:20
Lorazepam 1 Mg Tablet PO 06/20/25 16:00
PRN PRN
for MRI - claustrophobia
Losartan Potassium 100 mg 06/20/25 08:00 06/20/25 08:46
Losartan 100 Mg Tablet PO 07/18/25 07:59 100 mg
DAILY CALEB Administration
Multivitamins Therapeutic 1 tablet 06/20/25 08:00 06/20/25 08:45
Multivitamin Tablet PO 07/18/25 07:59 1 tablet
DAILY CALEB Administration
Testosterone 20.25 0 pump 06/20/25 08:00
Mg/1.25 Gram (1.62 % TOPICAL 07/18/25 07:59
) Gel One Pump DAILY CAELB
Topically Once A Day
Home Medications
�Medication �Instructions �Recorded
cholecalciferol (vitamin D3) 50 50 mcg PO DAILY Supplement 04/21/25
mcg (2,000 unit) capsule (Vitamin
D3)
cyanocobalamin (vitamin B-12) 1,000 mcg PO DAILY Supplement 04/21/25
1,000 mcg tablet
doxazosin 2 mg tablet 2 mg PO HS Blood Pressure 04/21/25
simvastatin 20 mg tablet (Zocor) 20 mg PO DAILY High Cholesterol 04/21/25
testosterone 1 pump topical DAILY Hormonal Agent 04/21/25
therapeutic multivitamin 1 tab PO DAILY Supplement 04/21/25
vitamin E 268 mg (400 unit) capsule 268 mg PO DAILY Supplement 04/21/25
losartan 100 mg tablet 100 mg PO DAILY 06/19/25
--- NOTE | 2025-06-20 10:07 | PTOTSP ---
Dysphagia Evaluation
No signs concerning for dysphagia with clinical bedside swallowing evaluation.
Recommend:
1. Regular, Thin liquids
2. Medications as best tolerated
3. Cognitive communication evaluation vs sign off pending results of further neuro imaging.
--- NOTE | 2025-06-20 11:09 | CM ---
Addendum entered by Morenita Howard 06/20/25 11:47:
GROSSMAN Signed
Original Note:
I.A: Completed By RUBEN Xavier
Patient lives with his in a 2 STH, 1 STI, 12 STI with a Basement. DME: None, No VN/PT. and No STR.
PCP: Dr. Stef Rome
Pharm: [facility]
Patient [facility] home. PLAN: Anticipate Home No Needs vs. VN
[2025-06-20 13:08] LABS: Glycohemoglobin (HgbA1c) 5.3 % (4.0-5.9)
--- NOTE | 2025-06-20 14:39 | W.PN.HOSP.TC ---
Today's Communication/Plan
-
MRI pending
Assessment / Plan
Assessment / Plan
85M presents with recurrent episodes of left-sided weakness and numbness which have resolved.
TIA
vs CVA
3 episodes L UEx + B/L Cortez weakness within 1 week which all resolved after 10 minutes
- s/p loading dose of ASA 325 then ASA 81mg daily
- Switch to atorvastatin [address] of Simvastatin
- Lipids and A1C WNL
- cannot have Contrast CTA H/N due to CKD3b
- As per ER attending d/w Neuro - can have MRA brain without contrast and and MRA neck without contrast. Patient with claustrophobia, Ativan ordered for pre-MRI, earplugs/eye mask. Patient reassured, if he cannot tolerate, would have patient
arrange for outpatient open MRI
- Neuro consulted
Chronic microcytic anemia
Stable, continue to monitor
CKD3b: current Cr 1.6
- Baseline Cr hi 1s, eGFR 34
- Known renal artery stent
- on doxazosin
- c/w losartan - trend Cr
Severe - progressive
04/20/25 TTE : LVEF 55-60%, Severe with peak/mean gradients 71/41 mmHg, calculated SUZY is 0.78 cm².
HX syncopal episode presumed to be vasovagal.
- OP Card f/u
HTN
- on SHIPPING WEIGHER Losartan
BP controlled
DVT Px: SCD
Full code
Anticipated Discharge: Within 24 hours
Subjective/Interval History
-
Date of Service: June 20, 2025
Patient feels well, did states his left side is pretty much back to normal, denies any numbness. at bedside. He is concerned about his significant claustrophobia with MRI, I advised that we will give Ativan and reassured him
Objective Data
-
Vital Signs:
Vital Signs
Temp Pulse Resp BP Pulse Ox
98.3 F 64 16 117/57 96
06/20/25 11:00 06/20/25 11:00 06/20/25 11:00 06/20/25 11:00 06/20/25 11:00
I&O
06/19/25 06/20/25 06/21/25
06:59 06:59 06:59
Intake Total 1919
Balance 1919
Review of Systems
-
History Source: Patient
All other systems: Reviewed and negative
Physical Exam
-
General: No Apparent Distress
HEENT: Moist Mucous Membranes, Anicteric and PERRLA
Respiratory: Clear to Auscultation; Negative Wheezes, Rales or Rhonchi
Cardiac: Regular Rhythm and S1/S2; Negative Murmur, Rub or Gallop
GI: Soft, Nontender, Nondistended and Normal Bowel Sounds
Musculoskeletal: No Edema
Skin: Warm and Dry; Negative Rash, Ulcers or Lesions
Neuro: Awake, AO x 3, No Motor Deficits, Nonfocal/Grossly Intact, Central Nerve's Intact and DTR's Intact & Symmetrica; Negative Slurred Speech or Facial Droop
Hematologic / Lymphatic: No Lymphadenopathy
Psych: Calm
Data Reviewed
-
Diagnostic Radiology: Report Reviewed by me and Discussed with Patient
CT Scan: Report Reviewed by me and Discussed with Patient
Labs: Labs Reviewed by me and Discussed with Patient
[2025-06-20] MEDS: LIPITOR 40 MG PO (17:40)
[2025-06-20] MEDS: CARDURA 2 MG PO (21:15)
[2025-06-21 03:23] VITALS: BP 119/67
[2025-06-21] MEDS: COZAAR 100 MG PO (07:48)
[2025-06-21] MEDS: THERAGRAN 1 TABLET PO (07:49)
[2025-06-21] MEDS: VITAMIN B-12 1000 MCG PO (07:49)
[2025-06-21] MEDS: LOW STRENGTH ASPIRIN 81 MG PO (07:49)
[2025-06-21] MEDS: VITAMIN D3 (cholecalciferol) 50 MCG PO (07:49)
[2025-06-21 08:18] VITALS: BP 133/64
--- NOTE | 2025-06-21 09:37 | W.PN.NEURO.1 ---
Addendum entered and electronically signed by Stephen Adamson MD 06/21/25 19:06:
I saw and examined the patient along with the nurse practitioner Donna Uriarte. I agree with the nurse practitioner Donna Uriarte's assessment and management plan. I personally performed the medical decision making of this encounter and my
assessment and management plan is given below.
The patient is an 85 years old male who appears to have had a transient ischemic attack. The risk factors include hypertension and hyperlipidemia.
The MRI of the brain was done that showed a small left subdural hygroma with no significant mass effect or midline shift.
The MRA of the head and MRA of the neck did not show any high-grade stenosis or occlusion.
Continue current medications.
Follow-up with neurology in 4 weeks in clinic.
Fall precautions.
Original Note:
Today's Communication / Plan
-
-check MRI brain without contrast to evaluate for stroke
-MRA head/neck
-aspirin 81 mg and Plavix 75 mg for 21 days followed by monotherapy with aspirin
-goal LDL <70 current LDL 58, continue atorvastatin 40 mg nightly
-PT/OT/ST evaluations
-DVT prophylaxis
-continue neurochecks and NIHSS per unit guidelines
-stroke education packet
Neuro Assessment/Plan
Assessment
The patient is an 85 years old male, who presented to the hospital on 06/19/2025 with a complaint of weakness in the left arm and bilateral lower extremities that started at around 12:30 PM. The patient's symptoms resolved in about 10 minutes and he
returned to his baseline. At this time the patient says he is back to his baseline and he denies any speech difficulty, facial droop, numbness or weakness of arms and legs. The patient presented to the emergency department after resolution of his
symptoms. Denies change in vision. Denies headache. Denies difficulty speaking. The patient received a loading dose of 325 mg of aspirin. NIHSS = 0. The patient was not a candidate for thrombolytic therapy as his symptoms had resolved. The
patient was not on antiplatelet at home.
The patient appears to have a transient ischemic attack. Workup is in progress for the transient ischemic attack. The risk factors include hypertension and hyperlipidemia.
CT head: No acute intracranial abnormality.
Cannot have CTA head and neck due to CKD3b.
MRI brain and MRA brain and MRA neck are pending.
Labs: Cholesterol 106, LDL 58, Hgb A1C 5.3
Plan
-check MRI brain without contrast to evaluate for stroke
-MRA head/neck
-aspirin 81 mg and Plavix 75 mg for 21 days followed by monotherapy with aspirin
-goal LDL <70 current LDL 58, continue atorvastatin 40 mg nightly
-PT/OT/ST evaluations
-DVT prophylaxis
-continue neurochecks and NIHSS per unit guidelines
-stroke education packet
All questions encouraged and answered, plan of care discussed with Dr. Adamson and patient
Subjective/Objective
Subjective Data
Date of Service: June 21, 2025
No acute overnight events. No neurologic deficits noted.
Objective Data
Vital Signs
Temp Pulse Resp BP Pulse Ox
98.6 F 63 16 133/64 97
06/21/25 08:18 06/21/25 08:18 06/21/25 08:18 06/21/25 08:18 06/21/25 08:18
Lab Results
06/19/25 13:25
06/19/25 13:25
Sodium 138 mmol/L (135-145) 06/19/25 13:25
Potassium 5.1 mmol/L (3.5-5.1) 06/19/25 13:25
BUN 33 mg/dl (9-20) H 06/19/25 13:25
Glucose 116 mg/dl (70-99) H 06/19/25 13:25
Calcium 9.1 mg/dl (8.4-10.2) 06/19/25 13:25
LDL Cholesterol, Calc 58 mg/dl 06/20/25 07:15
Patient Allergies
No Known Allergies Allergy (Verified 06/19/25 13:15)
Data Reviewed
-
CT Head: Report Reviewed and Image Reviewed
Medical Test Reports: Report Reviewed
Labs: Report Reviewed
Reviewed with: Physician and Patient
Old Records: Summarized
[2025-06-21] MEDS: VALIUM INJECTION 5 MG IV (11:04)
[2025-06-21 11:18] VITALS: BP 115/57
[2025-06-21 15:45] VITALS: BP 100/49
--- NOTE | 2025-06-21 16:02 | CM ---
Discharge home today
PT rec OP PT
Plan: Home, OP PT
--- NOTE | 2025-06-21 16:29 | W.DCSUMMARY ---
Discharge Summary
Discharge Data
Date of Admission: 06/19/25
Date of Discharge: 06/21/25
-
Pending Results: No
Hospital Course
Discharging Physician : Dr Vivek Pope
Disposition : To home
Primary care physician : Dr. Stef rome
Principal Discharge diagnosis :
Transient ischemic attack
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
Chronic Discharge diagnosis :
Chronic disease stage IIIb
Severe aortic stenosis
Essential hypertension
On testosterone replacement therapy
Hyperlipidemia
Physical examination:
General: Well Developed, Well Nourished and No Apparent Distress
HEENT: NormoCephalic, Moist mucous membranes and Atraumatic
Respiratory: Clear
Cardiac: S1/S2, Regular Rhythm and Murmur
GI: Soft, Non Tender, Non Distended and Normal Bowel Sounds;
Musculoskeletal: No Edema
Neuro: Nonfocal/grossly intact
Hospital Course :
Patient is a 85-year-old male with admission past medical history came with new onset of left arm and bilateral lower extremity weakness. Patient had 2 episodes of similar symptoms in 1 week with resolution in some time. In ER patient had a CT
head which was negative for any acute brain bleed. Neurology was involved in care who recommended further workup. CTA head and neck was recommended although patient unable to have that due to renal dysfunction. A follow-up MRI brain and MRA head
and neck was done which did not show any vascular issues. MRI brain did not show any stroke although incidentally showed a thin rim of possible chronic hematoma versus subdural hygroma. Neurology evaluated and recommended this to be followed up by
neurosurgery in the office. Symptoms were felt not related to the hygroma/chronic hematoma due to laterality. Patient likely was having small vessel disease related TIA. Neurology recommended patient to be maintained on aspirin and Plavix for 21
days followed by aspirin in the future. Patient was able to participate with physical therapy and was deemed appropriate for outpatient physical therapy. Patient was discharged home at this point with follow-up with neurology/neurosurgery and
primary care physician in office.
Important imaging findings :
None
Procedure findings :
None
Discharge Plan
-
Patient Disposition: Home (Routine Discharge)
Discharge Diagnosis/Procedures: TIA episode
Condition: Fair
Diet: Low Cholesterol
Activity: As tolerated
Driving Restrictions: No driving for 24 hours
Bathing Restrictions: OK to Shower
Other Services: PT
Activity Restrictions/Additional Instructions:
Please call for a new patient appointment with neurosurgery
Referrals:
Kenney Denson DO [Active, Neurosurgery]
Stephen Adamson MD [Active, Neurology]
Stef Rome MD [Active, Family Practice] - in one week
Prescriptions:
New
atorvastatin 40 mg Tablet
40 mg PO QPM Qty: 30 2RF
aspirin 81 mg Tablet,Chewable
81 mg PO DAILY Qty: 30 2RF
clopidogrel [Plavix] 75 mg tablet
75 mg PO DAILY Qty: 21 0RF
Rx Instructions:
For 3 weeks then STOP
Continued
simvastatin [Zocor] 20 mg Tablet
20 mg PO DAILY
cyanocobalamin (vitamin B-12) 1,000 mcg Tablet
1,000 mcg PO DAILY
therapeutic multivitamin Tablet
1 tab PO DAILY
vitamin E 268 mg (400 unit) Capsule
268 mg PO DAILY
doxazosin 2 mg Tablet
2 mg PO HS
cholecalciferol (vitamin D3) [Vitamin D3] 50 mcg (2,000 unit) Capsule
50 mcg PO DAILY
testosterone 20.25 mg/1.25 gram (1.62 %) Gel In Metered-Dose Pump
1 pump TOPICAL DAILY
losartan 100 mg Tablet
100 mg PO DAILY
Discharge Orders:
Discharge Patient (As Directed); Ordered 06/21/25
Ordered By: Vivek Pope
Discharge Date and Time
Print Language: KITTITIAN
== END 2025-06-21 16:56 | disposition home or self-care (01) ==
LOC: 4 EAST ACU 18:10
PROVIDERS: ADMITTING PHYSICIAN Internal Medicine; ATTENDING PHYSICIAN Hospitalist; CONSULT PHYSICIAN Psychiatry & Neurology Neurology; EMERGENCY PHYSICIAN Emergency Medicine
DX: G45.8 Other transient cerebral ischemic attacks and related syndromes (principal); R53.1 Weakness; R07.9 Chest pain, unspecified; D50.0 Iron deficiency anemia secondary to blood loss (chronic); N18.32 Chronic kidney disease, stage 3b; Z79.899 Other long term (current) drug therapy; I27.20 Pulmonary hypertension, unspecified; Z79.82 Long term (current) use of aspirin; Z79.02 Long term (current) use of antithrombotics/antiplatelets; F40.240 Claustrophobia; I12.9 Hypertensive chronic kidney disease with stage 1 through stage 4 chronic kidney disease, or unspecified chronic kidney disease; Z79.890 Hormone replacement therapy; I35.2 Nonrheumatic aortic (valve) stenosis with insufficiency
CPT/HCPCS: 70450; 70544; 70548; 70551; 71046; 80053; 80061; 81003; 81015; 83036; 84484; 85025; 87086; 92610; 93005; 97116; 97162; 97166; 99285; A9585; G0378

== ENCOUNTER → 2025-07-02 13:42 | Outpatient (REF) | payer MEDICARE, OTHER, SELFPAY | LOC: HWRAD 13:42 | PROVIDERS: ATTENDING PHYSICIAN Specialist; FAMILY PHYSICIAN Family Medicine | DX: N20.0 Calculus of kidney (principal) | CPT/HCPCS: 74176 ==

== ENCOUNTER 2025-07-06 22:22 | Inpatient (IN) | payer MEDICARE, OTHER, SELFPAY ==
[2025-07-06 19:44] VITALS: BP 118/64
[2025-07-06 20:03] LABS: Hematocrit 34.3 % (39.0-52.0); Hemoglobin 11.2 g/dL (13.0-18.0); Mean Corp Hgb Conc. 32.7 g/dL (33.0-37.0); Mean Corpuscular Volume 98.8 fL (80.0-94.0); Nucleated Red Blood Cells % 0 % (-); Platelet Count 330 10^3/uL (130-400); Red Cell Dist. Width 14.6 % (11.5-14.5)
[2025-07-06 20:26] LABS: ALT (SGPT) 26 U/L (0-50); AST (SGOT) 24 U/L (17-59); Albumin 3.6 g/dl (3.5-5.0); Alkaline Phosphatase 135 U/L (38-126); Blood Urea Nitrogen 67 mg/dl (9-20); Calcium 8.9 mg/dl (8.4-10.2); Carbon Dioxide 11 mmol/L (22-30); Chloride 112 mmol/L (98-107); Glucose 118 mg/dl (70-99); Potassium 5.2 mmol/L (3.5-5.1); Sodium 137 mmol/L (135-145); Total Protein 6.5 g/dl (6.3-8.2); eGFR 12.39
[2025-07-06 20:48] VITALS: BP 130/109
[2025-07-06 21:00] VITALS: BP 113/58
--- NOTE | 2025-07-06 21:02 | ED.GENMED ---
History of Present Illness
General
Chief Complaint: Abnormal Lab Value
Source: patient, records and spouse
Exam Limitations: none
Time Seen by Provider: 07/06/25 20:50
Nursing documentation reviewed up to this point in time: agreed with
History of Present Illness
History of Present Illness:
85-year-old male chronic kidney disease hypertension diagnosed with a kidney stone on the left few weeks ago followed by urology/nephrology at [facility]
Pain is fairly well-controlled, no fevers, had outpatient blood work showed increased creatinine referred to the ER, no dysuria or frequency
Past History
Past History
ED Past Medical History: HTN, Hypercholesterolemia and Other (BPH, Kidney stones, Double vision corrected with glasses,)
ED Past Surgical History: Cholecystectomy and Orthopedic (bilateral knee surgery)
Social History
Tobacco: Non-smoker
Alcohol: Daily (wine 1 glass)
Drug: None
Personal:
Living: with family
Employment: Retired
Review of Systems
Review of Systems
All Other Systems: Not applicable
Constitutional: Denies fever or fatigue
EENT: Reports no symptoms
Respiratory: Reports no symptoms
Cardiac: Reports no symptoms
ABD/GI: Denies nausea or vomiting
: Reports flank pain
Musculoskeletal: Reports no symptoms
Skin: Reports no symptoms
Phy Exam
Physical Exam
Physical Exam:
Physical Exam
General: no apparent distress, not acutely ill
Neck: No jaundice
Heart: s1/s2 regular rate and rhythm, no murmur. equal radial pulses.
Lungs: no acute respiratory distress. clear bilaterally
Abdomen: Nontender
Neuro: alert and oriented. no focal neurological deficits
Skin: no rash
Psychiatric: well kept. interactive and cooperative
Extremities: no edema.
Course
Orders/Labs/Results
Orders:
Orders
07/06/25 19:56
CMP [Comprehensive Metabolic Panel] Urgent
Complete Blood Count/With Diff Urgent
07/06/25 20:50
Electrocardiogram (*1) Urgent
Reason for Study: Abdominal Pain
EKG- Treatment ONCE
07/06/25 20:51
CT Abd/pel Without Iv Or Oral Urgent
Comment:
Reason For Exam: ewa
07/06/25 21:00
Urinalysis Reflex To Culture Urgent
Sterile Water For Inj [Sterile Water For Injection 1000 ml] 1,000 ml Sodium Bicarbonate 150 meq IV 200 mls/hr
07/06/25 21:01
Bladder Scan- Treatment ONCE
Abnormal Lab Results
07/06/25
19:56
RBC 3.47 L 10^6/uL
(4.70-6.10)
Hgb 11.2 L g/dL
(13.0-18.0)
Hct 34.3 L %
(39.0-52.0)
MCV 98.8 H fL
(80.0-94.0)
MCH 32.3 H pg
(27.0-31.0)
MCHC 32.7 L g/dL
(33.0-37.0)
RDW 14.6 H %
(11.5-14.5)
Abs Immat Gran (auto) 0.1 H 10^3/uL
(0-0.05)
Absolute Neuts (auto) 7.3 H 10^3/uL
(1.4-6.5)
Absolute Lymphs (auto) 1.0 L 10^3/uL
(1.2-3.4)
Immature Gran % 0.7 H %
(0-0.5)
Neutrophils % 80.5 H %
(42.2-75.2)
Lymphocytes % 10.8 L %
(20.5-51.1)
Potassium 5.2 H mmol/L
(3.5-5.1)
Chloride 112 H mmol/L
(98-107)
Carbon Dioxide 11 L* mmol/L
(22-30)
BUN 67 H mg/dl
(9-20)
Creatinine 4.4 H* mg/dL
(0.7-1.3)
Glucose 118 H mg/dl
(70-99)
Alkaline Phosphatase 135 H U/L
(38-126)
07/06/25 19:56
07/06/25 19:56
Vital Signs
Initial and Last Documented VS:
Initial Vital Signs
Temp Pulse Resp BP Pulse Ox
97.3 F 99 20 118/64 98
07/06/25 19:44 07/06/25 19:44 07/06/25 19:44 07/06/25 19:44 07/06/25 19:44
Last Documented Vital Signs
Temp Pulse Resp BP Pulse Ox
97.3 F 99 20 118/64 98
07/06/25 19:44 07/06/25 19:44 07/06/25 19:44 07/06/25 19:44 07/06/25 21:02
MDM/Problems Addressed
Differential Diagnosis Includes:
EWA dehydration obstructive uropathy
MDM/Problems Addressed:
EAW
Chronic conditions affecting care: HTN
Acute Exacerbation and/or Progression of Chronic Illness: HTN
*Radiology
Radiology exam reviewed: radiology read reviewed
*Pulse Oximetry
SaO2: 98
Oxygen Mode of Delivery: Room air
Patient hypoxic: no
*Molding Machine Setter Interpretation
Rate: normal
Interpretation: normal
Heart Rate: 78
Rhythm: sinus
*Critical Care Note
Total Time (30-74mins, 75-104mins- exclusive of procedures): 30
Data Reviewed
Review of Other/Old Records Reveals: Labs and Radiology Studies
Source: patient and spouse
Update Note
Update Note:
Update patient with EWA large proximal stone, overall nontoxic afebrile message sent to hospitalist nephrology and urology will repeat his scan tonight, treat medically plan for OR tomorrow 8 AM
ED Attending Note
-
Portions of this chart may have been created with voice recognition software.� Occasional wrong word or��sound alike� substitutions may have occurred due to the inherent limitations of voice recognition software.
Discharge Plan
Departure
Prescriptions:
No Action
cyanocobalamin (vitamin B-12) 1,000 mcg Tablet
1,000 mcg PO DAILY
therapeutic multivitamin Tablet
1 tab PO DAILY
vitamin E 268 mg (400 unit) Capsule
268 mg PO DAILY
doxazosin 2 mg Tablet
2 mg PO HS
cholecalciferol (vitamin D3) [Vitamin D3] 50 mcg (2,000 unit) Capsule
50 mcg PO DAILY
testosterone 20.25 mg/1.25 gram (1.62 %) Gel In Metered-Dose Pump
1 pump TOPICAL DAILY
losartan 100 mg Tablet
100 mg PO DAILY
atorvastatin 40 mg Tablet
40 mg PO QPM Qty: 30 2RF
aspirin 81 mg Tablet,Chewable
81 mg PO DAILY Qty: 30 2RF
clopidogrel [Plavix] 75 mg tablet
75 mg PO DAILY Qty: 21 0RF
Rx Instructions:
For 3 weeks then STOP
omeprazole 20 mg Tablet,Disintegrat, Delay Rel
20 mg PO DAILY
Referrals:
Stef Rome MD [Family Provider, Family Practice]
Interventions
Interventions:
*General Assessment Last Done: 07/06/25 19:44
*Neglect/Abuse Screening Last Done: 07/06/25 19:44
*ED COVID-19 Vaccine History Last Done: 07/06/25 20:44
*ED Influenza Vaccine History Last Done: 07/06/25 20:44
[facility] Risk Assessment Tool Last Done: 07/06/25 20:43
*Risk Screen - Suicide (C-SSRS) Last Done: 07/06/25 19:44
Discharge Date and Time
Print Language: LITHUANIAN
--- NOTE | 2025-07-06 21:06 | HPS.HSE ---
Family Physician
-
Family Physician: Stef Rome
Chief Complaint
-
abnormal out patient labs
History of Present Illness
Patient is a 85-year-old male with past medical history significant for hypertension, hyperlipidemia, GERD, chronic kidney disease III, BPH, TIA and nephrolithiasis who presented to [facility] ED for evaluation of abnormal out patient labs. Patient with
known kidney stones, 3 on the right and 1 on the left. During previous hospitalization 06/19/25 - 06/21/25 with TIA patient complained of abrupt onset left flank pain. Abd/Pel CT was done at that time showing that existing stone had moved. Patient
was to follow up out patient with Dr. Khalil, urology, in which he was treated medically to control pain and plan to repeat imaging in several weeks. Patient was seen by Dr. Cam @ [place] for schedule labs and injection where he was found to
significant EWA. Nephrology and Urology were notified and recommendations to go to ED for evaluation were made. Urology, Dr. Oh reported to ED that patient will be scheudled for OR at 0800 tomorrow for stents and laser. Denies any fever,
chills, cough, shortness of breath, chest pain, nausea, vomiting, constipation or diarrhea.
Medical History
Past Medical History
Past Medical History: Reports Other
Additional Past Medical History:
hypertension
hyperlipidemia
chronic kidney disease III
GERD
BPH
TIA
nephrolithiasis
Past Surgical History: Reports Other
Additional Past Surgical History:
bilateral knee replacement
Social History
Tobacco: Non-smoker
Alcohol: None
Drug: None
Personal:
Living: With Family
Family History
Family History: Not pertinent
Allergies / Home Medications
Allergies reflects when Allergies were last updated in [employer].
Home Medications with original date entered in [employer]
Allergy/Medication List:
Allergies
Allergy/AdvReac Type Severity Reaction Status Date / Time
No Known Allergies Allergy Verified 07/06/25 19:43
Home Medications
cholecalciferol (vitamin D3) 50 mcg (2,000 unit) capsule (Vitamin D3) 50 mcg PO DAILY Supplement 04/21/25
cyanocobalamin (vitamin B-12) 1,000 mcg tablet 1,000 mcg PO DAILY Supplement 04/21/25
doxazosin 2 mg tablet 2 mg PO HS Blood Pressure 04/21/25
testosterone 1 pump topical DAILY Hormonal Agent 04/21/25
therapeutic multivitamin 1 tab PO DAILY Supplement 04/21/25
vitamin E 268 mg (400 unit) capsule 268 mg PO DAILY Supplement 04/21/25
losartan 100 mg tablet 100 mg PO DAILY 06/19/25
aspirin 81 mg chewable tablet 81 mg PO DAILY #30 tabs 06/21/25
clopidogrel 75 mg tablet (Plavix) 75 mg PO DAILY #21 tabs 06/21/25
omeprazole 20 mg delayed release,disintegrating tablet 20 mg PO DAILY 06/22/25
atorvastatin 40 mg tablet 40 mg PO DAILY 07/06/25
Review of Systems
-
History Source: Patient
Constitutional: Denies Fever or Chills
EENT: Denies Sore Throat
Respiratory: Denies Cough or Trouble Breathing
Cardiac: Denies Chest Pain, Diaphoresis, Palpitations or Syncope
Abdomen/GI: Denies Abdominal Pain, Nausea, Vomiting or Diarrhea
: Reports Flank Pain; Denies Dysuria, Frequency or Urgency
Musculoskeletal: Denies Joint Pain
Skin: Denies Rash
Neurological: Denies Dizzy, Headache, Weakness or Numbness
Physical Exam
Vital Signs
Vital Signs
Temp Pulse Resp BP Pulse Ox
97.3 F 99 20 118/64 98
07/06/25 19:44 07/06/25 19:44 07/06/25 19:44 07/06/25 19:44 07/06/25 21:02
Physical Exam
General: Well Developed, Well Nourished, No Apparent Distress, Comfortable and Conversant
HEENT: NormoCephalic, Moist mucous membranes, PERRLA, Nose Appears Normal and Ears Appear Normal
Respiratory: Clear and Non Labored Respirations; No Wheezes
Cardiac: S1/S2, Regular Rhythm and Murmur; No Peripheral Edema
GI: Soft, Non Tender, Non Distended and Normal Bowel Sounds
Musculoskeletal: No Clubbing, No Cyanosis and No Edema
Skin: Warm and IV/Catheter Site
Neuro: Awake and AO x 3
Psych: Calm and Intact Judgment/Insight
Laboratory Results
-
07/06/25 19:56
07/06/25 19:56
Laboratory Results
Total Bilirubin 0.3 mg/dl (0.2-1.3) 07/06/25 19:56
AST 24 U/L (17-59) 07/06/25 19:56
ALT 26 U/L (0-50) 07/06/25 19:56
Alkaline Phosphatase 135 U/L (38-126) H 07/06/25 19:56
Data Reviewed
-
Lab Data: Labs Reviewed by me (Neut 80.5, K 5.2, Chloride 112, CO2 11, BUN 67, creat 4.4, eGFR 12.39)
Impression/Plan
-
IMPRESSION/PLAN:
#abnormal out patient labs
#chronic kidney disease III
#acute kidney injury
Neut 80.5, K 5.2, Chloride 112, CO2 11, BUN 67, creat 4.4, eGFR 12.39
Abd/Pel CT: pending report
- Admit to med/surg
- Consult Nephrology
- Consult Urology
- NPO at midnight for OR tomorrow
- Ancef 1gm x1 dose
- Bicarb gtt running
- supportive care
#nephrolithiasis
#hypertension
- continue doxazosin
- hold losartan
#hyperlipidemia
- continue atorvastatin
#TIA
- continue aspirin
- hold Plavix
#GERD
- continue omeprazole
#BPH
Code status: full code
DVT prophylaxis: SCDs
[2025-07-06] MEDS: SODIUM BICARBONATE 1150 MEQ IV (21:24)
--- NOTE | 2025-07-06 21:34 | W.PN.UPDATE ---
Update Note
Progress Note Update
This note serves as an addendum to the H&P by rehab technician SHARON�
Jillian Peralta
HPI�
85M Non smoker
PMH: CKD3, severe aortic stenosis, aortic regurgitation sen at ER:
- Recent admission (06/19/25 -06/21/25) DxT ransient ischemic attack and Left-sided subdural hygroma versus old hematoma who followed by urology/nephrology at [place]
- had outpatient blood work showed increased creatinine referred to the ER
- no dysuria or frequency
Relevant VS
Temp Pulse Resp BP Pulse Ox
97.3 F 99 20 118/64 98
07/06/25 19:44 07/06/25 19:44 07/06/25 19:44 07/06/25 19:44 07/06/25 21:02
PE
Thin and frail
Gen: Not toxic looking , alert and interactive
HEENT: anicteric
Neck: supple
Lungs: CTA
Cor: S1 , Loud SM
Abdomen:�soft NT
[employer]: [facility]
MS: No edema
Psych:Nl mood and affect
Relevant Data
04/24/25 06/19/25 07/06/25
06:24 13:25 19:56
Sodium 138 137
Potassium 5.1 5.2 H
Chloride 110 H 112 H
Carbon Dioxide 27 23 11 L*
BUN 37 H 33 H 67 H
Creatinine 1.9 H 1.6 H 4.4 H*
eGFR 34.14 41.70 12.39
07/[address] AP
07/02/25 CT Abd/pel Without Iv Or Oral
8 mm proximal left ureteral stone causing mild left hydronephrosis. Previously this stone was located in the left kidney.
Additional nonobstructing bilateral renal stones. Stable .
Moderate diverticulosis. Stable
Mild diffuse bladder wall thickening. This can be seen with cystitis and bladder outlet obstruction. New
Mild prostate hypertrophy. Progressed
Last hospitalist admission:Date of Admission: 06/19/25 -: 06/21/25
Principal Discharge diagnosis :
Transient ischemic attack
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
ASSESSMENT & PLAN
Pending Rx reconciliation
Known 8 mm proximal left ureteral stone causing mild left hydronephrosis per 07/02/25 CT AP
Associated EWA: Cr 4.4 - suspect elements obstructive nephropathy
Known CKD3b: - Baseline Cr hi 1s, eGFR 34
Known renal artery stent
- No fevers
- Minimal pain
- on doxazosin
- Hold losartan - trend Cr
- FU CT AP for
- FU CT AP for nown 8 mm proximal left ureteral stone
- Per URO; Empiric IV Ancef 1gm in place of 2 gm due to concern for interstitial nephritis, NPO and IVF , hold ASA, first case tomorrow 8 AM for laser and stents.
Recent TIA pw transient L UEx + B/L [place] weakness resolved rapidly at ER
- Hold Plavix - last dose of Plavix this AM ( 07/06)
- c/w ASA
HX Severe - progressive
04/20/25 TTE : LVEF 55-60%, Severe with peak/mean gradients 71/41 mmHg, calculated SUZY is 0.78 cm².
HX syncopal episode presumed to be vasovagal.
- OP Card f/u
pHTN
- Hold Losartan due to EWA
DVT Px: SCD
Full code
IP MS
[2025-07-06 21:53] LABS: Urine Character Clear (Clear)
[2025-07-06 21:58] LABS: Urine Squamous Cell 0-2 /LPF (Few)
[2025-07-06 21:59] LABS: Urine White Cell 30-40 /HPF (0-5)
[2025-07-06 22:00] VITALS: BP 115/59
[2025-07-06 23:00] VITALS: BP 100/54
--- NOTE | 2025-07-06 23:55 | PTCARENOTE ---
Received patient for ED @ 6865. Pt ambulated from stretcher to bed. AAOx3. VSS. No c/o pain. Admission assessment completed. at bedside. Pt oriented to room, call cornelius, and plan of care. Care ongoing.
[2025-07-07] VITALS (13 sets, daily range): BP systolic 98–135; BP diastolic 51–69; BMI 19.5
[2025-07-07] MEDS: CARDURA 2 MG PO (00:44)
[2025-07-07] MEDS: ATIVAN 0.25 MG PO ×2 (01:03→19:29)
--- NOTE | 2025-07-07 07:08 | W.PN.HOSP.TC ---
Today's Communication/Plan
-
started on ceftriaxone IV for UTI with obstructive uropathy / stone in left ureter
Sten placement in left ureter
hold Plavix
continue aspirin
trail of voids tonight
Assessment / Plan
Assessment / Plan
85-year-old male with past medical history significant for hypertension, hyperlipidemia, GERD, chronic kidney disease III, BPH, TIA and nephrolithiasis who presented to [facility] ED for evaluation of abnormal out patient labs. Patient with known kidney
stones, 3 on the right and 1 on the left. During previous hospitalization 06/19/25 - 06/21/25 with TIA patient complained of abrupt onset left flank pain. Abd/Pel CT was done at that time showing that existing stone had moved. Patient was to follow
up out patient with Dr. Khalil, urology, in which he was treated medically to control pain and plan to repeat imaging in several weeks. Patient was seen by Dr. Cam @ [place] for schedule labs and injection where he was found to significant EWA.
Nephrology and Urology were notified and recommendations to go to ED for evaluation were made.
07/07 Urology, Dr. Oh performed stent placement , has Watson cath with hematuria , AFVSS
#EWA on CKD stage III
Likely due to postrenal obstruction uropathy with left ureteral stone of [address] scan
Had stent placement in left ureter 07/07 with Watson catheter placed
Will continue on judicious IV fluids and hold home ARB
Avoid nephrotoxic agents
Trend BMP and urine output
Cr. 4.4--4.0
Plan for trial of void at midnight
#Obstructing left ureterolithiasis
pt is asymptomatic bacteriuria with watson cath
ORIF this morning with urology
Plan for trial of void as above
Giving pt complicated UTI with stone in ureter , started on short course of IV antibiotics with ceftriaxone
Follow urine culture
#Gross hematuria postoperatively
Currently on aspirin and Plavix for TIA that he had earlier this month
Near 21 days of DAPT therapy for TIA
Will hold off on further Plavix, plan to continue aspirin when okay with urologist
Trend CBC
#Severe aortic stenosis
Most recent TTE with mean gradient 41 mmHg and SUZY 0.78 cm�
Monitor volume status closely on IVF as above
Will need to follow-up OP for TAVR workup
Monitor I's and O's, weights, respiratory status
Diet -- NPO, plan for no added salt
DVT -- SCDs
Code -- Full
Anticipated Discharge: 24 - 48 hours
Subjective/Interval History
-
Date of Service: July 07, 2025
Patient did stent placement in his left ureter this morning, he has urethral pain after the procedure. denied abd or flank pain. Has hematuria in his Watson cath bag.
Objective Data
-
Labs:
Laboratory Results
07/06/25 07/07/25
19:56 06:38
WBC 9.1 Pending
Hgb 11.2 L Pending
Hct 34.3 L Pending
Plt Count 330 Pending
Sodium 137 Pending
Potassium 5.2 H Pending
Chloride 112 H Pending
Carbon Dioxide 11 L* Pending
BUN 67 H Pending
Creatinine 4.4 H* Pending
Glucose 118 H Pending
Calcium 8.9 Pending
Total Bilirubin 0.3
AST 24
ALT 26
Alkaline Phosphatase 135 H
Vital Signs:
Vital Signs
Temp Pulse Resp BP Pulse Ox
97.9 F 69 18 118/61 98
07/07/25 00:07 07/07/25 00:44 07/06/25 23:30 07/07/25 00:44 07/07/25 00:07
I&O
07/06/25 07/07/25 07/08/25
06:59 06:59 06:59
Intake Total 500 / 500
Output Total 300 / 300
Balance 200 / 200
Review of Systems
-
History Source: Patient
Respiratory: Reports No Symptoms
Cardiac: Reports No Symptoms
Abdomen/GI: Reports No Symptoms
Genitourinary: Reports Other (hematuria)
Physical Exam
-
General: Well Developed, Well Nourished and No Apparent Distress
Respiratory: Clear to Auscultation
Cardiac: S1/S2 and Irregular Rhythm
GI: Soft, Nontender and Nondistended
Musculoskeletal: No Edema
Skin: Warm and Dry
Neuro: Awake, Alert and Oriented
Psych: Calm
--- NOTE | 2025-07-07 07:54 | W.PN.URO.CBU ---
Today's Communication / Plan
-
decison for surgery etc
Assessment / Plan
-
[partially obstructing left ureteral stone for attempt laser and stenting Pt aware that due to factors such as bph we may not be able to access stone and may need perc tube For op room this am
Diagnosis
-
Date of Service: July 07, 2025
-
Patient Diagnosis:
Post Op Day: marilyn from rt [place] and new left prox 8 mm ureteral stone stone asx
Subjective
-
min colic no fevr chills
Objective
-
Vital Signs
Temp Pulse Resp BP Pulse Ox
97.9 F 69 18 118/61 98
07/07/25 00:07 07/07/25 00:44 07/06/25 23:30 07/07/25 00:44 07/07/25 00:07
Intake and Output
07/06/25 07/07/25 07/08/25
06:59 06:59 06:59
Intake Total 500 / 500
Output Total 300 / 300
Balance 200 / 200
Intake:
IV fluids (Total) 500 / 500
Output:
Urine, Voided 300 / 300
Other:
Number of approximated LARGE 1
amounts of urine
Review of Systems
-
: Flank Pain and Difficulty Voiding
Physical Exam
-
General - well developed, well nourished, no acute distress
Chest - clear bilaterally
Abdomen - soft, non-tender, positive bowel sounds, no CVAT, no incisional pain or distention
Genitalia - normal
Rectal - normal
Skin - warm & dry with no rash
Neuro - AOx3, no motor deficits
Extremities - no clubbing, no cyanosis, no edema
Incision - clean, dry
Dressing - clean, dry, intact
Counseling
-
to op room
Care Review
Data Reviewed
Discussed with: Hospitalist and Nursing
CT Scan: Image Pers Reviewed
[2025-07-07 08:05] LABS: Hematocrit 27.9 % (39.0-52.0); Hemoglobin 9.4 g/dL (13.0-18.0); Mean Corp Hgb Conc. 33.7 g/dL (33.0-37.0); Mean Corpuscular Volume 96.5 fL (80.0-94.0); Platelet Count 291 10^3/uL (130-400); Red Cell Dist. Width 14.3 % (11.5-14.5)
[2025-07-07 08:52] LABS: Blood Urea Nitrogen 67 mg/dl (9-20); Calcium 8.4 mg/dl (8.4-10.2); Carbon Dioxide 19 mmol/L (22-30); Chloride 109 mmol/L (98-107); Estimated Creatinine Clearance 9 ml/min; Glucose 77 mg/dl (70-99); Potassium 4.9 mmol/L (3.5-5.1); Sodium 136 mmol/L (135-145); eGFR 13.89
--- NOTE | 2025-07-07 08:56 | W.SUR.POST ---
Surgical Immediate Post Op
Note
Pre Op Diagnosis: marilyn left ureteral stone
Post Op Diagnosis: same
Procedure Performed: left u/l/s with basket extraction
Primary Surgeon: shani
Secondary Surgeons:
Anesthesia: dr thompson// [facility]
Estimated Blood Loss: 1cc
Fluids: nss
Drains/Shunts: 6 fr 24 cm jj stent and 18 fr watson
Specimens/Cultures:stone
Doppler/Duplex/Angio (Y/N):
Complications:
0
Operative Findings:lg stone obstructing left ureter
[2025-07-07] MEDS: SUBLIMAZE 25 MCG IV (09:24)
[2025-07-07] MEDS: PROTONIX 40 MG PO (11:03)
[2025-07-07] MEDS: LIPITOR 40 MG PO (11:03)
[2025-07-07] MEDS: LOW STRENGTH ASPIRIN 81 MG PO (11:03)
[2025-07-07] MEDS: PERCOCET 5/325 2 TABLET PO ×2 (11:04→16:26)
--- NOTE | 2025-07-07 11:09 | PTCARENOTE ---
Received patient back from PACU via bed around 1000 in stable condition. Urinary catheter in place draining punch colored urine. VS stable. Call cornelius in reach. at bedside.
--- NOTE | 2025-07-07 11:52 | W.CON.NEPH ---
Consultation
-
Date/Time Consultation Requested: 07/06/25 8205
Date/Time Consultation Performed: 07/07/25 1130
Requesting Provider: Coy Brown
Performing Provider: Nasreen Garcia
Reason for Consultation: Blue with CKD
Medical History
-
Chief Complaint: Abnormal labs, BLUE
History of Present Illness:
85-year-old male with past medical history significant for hypertension on losartan, cardura, hyperlipidemia on statin, GERD pn PPI, chronic kidney disease III baseline cr 1.6, BPH, TIA and nephrolithiasis who presented to [facility] ED for evaluation of
abnormal out patient labs. Patient with known kidney stones, 3 on the right and 1 on the left. During previous hospitalization 06/19/25 - 06/21/25 with TIA patient complained of abrupt onset left flank pain. Abd/Pel CT was done at that time showing
that existing stone had moved. Patient was to follow up out patient with Dr. Khalil, urology, in which he was treated medically to control pain and plan to repeat imaging. Patient was seen by Dr. Cam @ [place] for schedule labs for anemia and
where he was found to significant BLUE 4.4. Nephrology and Urology were notified and recommendations to go to ED. Urology, Dr. Oh had taken him to OR today and successfully did left u/l/s with basket extraction and JJ stent placement. he
denies any fever, chills, cough, shortness of breath, chest pain, nausea, vomiting, constipation or diarrhea. reports he is been tired lately. Cr today at 4 with IVF, met acidosis improved from 11 to 19 with iv bicarb.
Recent admission (06/19/25 -06/21/25) DxT ransient ischemic attack and Left-sided subdural hygroma versus old hematoma supposed to follow with NS at [place]. Nephrology asked to evaluate BLUE.
Past Medical History
hypertension
hyperlipidemia
chronic kidney disease III
GERD
BPH
TIA
nephrolithiasis
severe
SHPTH
Arthritis
Hypogonadism
h/o melanoma
Anemia-chronic follows heme
Past Surgical History: Cholecystectomy and Other (Varicose vein surgeries, skin surg , knee scope)
Social History
Tobacco: Non-Smoker
Alcohol: None
Drug: None
Personal:
Living: With Family
Family History
Family History: Not Pertinent
Allergies / Home Medications
Allergy/AdvReac Type Severity Reaction Status Date / Time
No Known Allergies Allergy Verified 07/06/25 19:43
�Medication �Instructions �Recorded �Confirmed �Type
cholecalciferol (vitamin D3) 50 50 mcg PO DAILY Supplement 04/21/25 07/07/25 History
mcg (2,000 unit) capsule (Vitamin
D3)
cyanocobalamin (vitamin B-12) 1,000 mcg PO DAILY Supplement 04/21/25 07/07/25 History
1,000 mcg tablet
doxazosin 2 mg tablet 2 mg PO HS Blood Pressure 04/21/25 07/07/25 History
testosterone 1 pump topical DAILY Hormonal Agent 04/21/25 07/07/25 History
therapeutic multivitamin 1 tab PO DAILY Supplement 04/21/25 07/07/25 History
vitamin E 268 mg (400 unit) capsule 268 mg PO DAILY Supplement 04/21/25 07/07/25 History
losartan 100 mg tablet 100 mg PO DAILY Blood Pressure 06/19/25 07/07/25 History
aspirin 81 mg chewable tablet 81 mg PO DAILY #30 tabs 06/21/25 07/07/25 Rx
clopidogrel 75 mg tablet (Plavix) 75 mg PO DAILY #21 tabs 06/21/25 07/07/25 Rx
omeprazole 20 mg delayed 20 mg PO DAILY 06/22/25 07/07/25 History
release,disintegrating tablet
atorvastatin 40 mg tablet 40 mg PO DAILY High Cholesterol 07/06/25 07/07/25 History
ascorbic acid (vitamin C) 500 mg 500 mg PO DAILY Supplement 07/07/25 07/07/25 History
chewable tablet
Review of Systems
-
All other systems: Negative unless noted
Physical Exam
Vital Signs
Vital Signs
Temp Pulse Resp BP Pulse Ox
98.0 F 74 16 103/58 97
07/07/25 11:00 07/07/25 11:00 07/07/25 11:00 07/07/25 11:00 07/07/25 11:00
Lab Results
WBC 6.1 10^3/uL (4.8-10.8) 07/07/25 06:38
RBC 2.89 10^6/uL (4.70-6.10) L 07/07/25 06:38
Hgb 9.4 g/dL (13.0-18.0) L 07/07/25 06:38
Hct 27.9 % (39.0-52.0) L 07/07/25 06:38
Plt Count 291 10^3/uL (130-400) 07/07/25 06:38
Sodium 136 mmol/L (135-145) 07/07/25 06:38
Potassium 4.9 mmol/L (3.5-5.1) 07/07/25 06:38
Chloride 109 mmol/L (98-107) H 07/07/25 06:38
Carbon Dioxide 19 mmol/L (22-30) L 07/07/25 06:38
BUN 67 mg/dl (9-20) H 07/07/25 06:38
Creatinine 4.0 mg/dL (0.7-1.3) H 07/07/25 06:38
eGFR 13.89 07/07/25 06:38
Glucose 77 mg/dl (70-99) 07/07/25 06:38
Calcium 8.4 mg/dl (8.4-10.2) 07/07/25 06:38
Albumin 3.6 g/dl (3.5-5.0) 07/06/25 19:56
Physical Exam
General: Awake, Alert, Oriented, AOx3, No Distress and Nontoxic
HEENT: EOMI, Anicteric, Facial Symmetry and Neck Supple
Respiratory: Clear, Normal Excursion and Nonlabored Respirations
Cardiac: S1/S2, Regular Rate/Rhythm and Murmur
Breast: Deferred by me
Abdomen: Soft, Nontender and Nondistended
Musculoskeletal: No Cyanosis and No Edema
Skin: No Rash
Neuro: Nonfocal/Grossly Intact
Psych: Mood/afflect pleasant, Insight/judgement good and Appropriate
Data Reviewed
-
Labs: Labs Reviewed by me, Discussed with Patient and Discussed with Family
Assessment/Plan
-
IMP:
BLUE with chronic kidney disease III b-basleline cr 1.6, follow Dr Perez
Left hydronephrosis from stone s/p left u/l/s with basket extraction and JJ stent
hypertension
hyperlipidemia
TIA
GERD
BPH
severe
Arthritis
Hypogonadism
h/o melanoma
Anemia-chronic follows heme
PLan:
A/w possible obst uropathy
s/p stone extraction and stent palcement by today, appt input
BLUE-cr slightly better at 4, monitor hematuria and UOP
met acidosis is improving, will given gentle IVF with bicarb
Bp stable,holding ARB
now that he is on flomax, hold cardura
expect to see improvement of renal function
monitor vol status with severe
monitor h/h, decreasing
d/w pt and at bedside
[2025-07-07] MEDS: LIDOCAINE URO-JET 2% 1 SYRINGE TOPICAL (12:46)
[2025-07-07] MEDS: ROCEPHIN 1000 MG IV (12:49)
[2025-07-07] MEDS: SODIUM BICARBONATE 1075 MEQ IV (12:50)
[2025-07-07] MEDS: STERILE WATER FOR INJECTION 10 ML IV (12:50)
--- NOTE | 2025-07-07 15:09 | CM ---
Chart reviewed and patient lives in a 2 story home, is independent with adl's and ambulation, lives with friend, Daphne, no dme, patient drives.
PCP: Dr Rome
Pharmacy: [facility]
Plan; Home when stable, no needs.
[2025-07-07] MEDS: FLOMAX 0.4 MG PO (21:14)
[2025-07-08 06:26] LABS: Hematocrit 27.7 % (39.0-52.0); Hemoglobin 9.2 g/dL (13.0-18.0); Mean Corp Hgb Conc. 33.2 g/dL (33.0-37.0); Mean Corpuscular Volume 96.9 fL (80.0-94.0); Nucleated Red Blood Cells % 0 % (-); Platelet Count 298 10^3/uL (130-400); Red Cell Dist. Width 14.3 % (11.5-14.5)
[2025-07-08] MEDS: VALIUM INJECTION 5 MG IV (06:42)
[2025-07-08 06:52] LABS: ALT (SGPT) 17 U/L (0-50); AST (SGOT) 22 U/L (17-59); Albumin 2.8 g/dl (3.5-5.0); Alkaline Phosphatase 104 U/L (38-126); Blood Urea Nitrogen 61 mg/dl (9-20); Calcium 8.2 mg/dl (8.4-10.2); Carbon Dioxide 23 mmol/L (22-30); Chloride 107 mmol/L (98-107); Estimated Creatinine Clearance 10 ml/min; Glucose 113 mg/dl (70-99); Potassium 5.0 mmol/L (3.5-5.1); Sodium 137 mmol/L (135-145); Total Protein 5.3 g/dl (6.3-8.2); eGFR 14.77
--- NOTE | 2025-07-08 06:59 | W.PN.HOSP.TC ---
Today's Communication/Plan
-
started on continuous blood irrigation by urology today due to clots in urine
continue IV ceftriaxone for complicated UTI
plan to hold aspirin if blood clots in urine recur or hemoglobin drops
Assessment / Plan
Assessment / Plan
85-year-old male with past medical history significant for hypertension, hyperlipidemia, GERD, chronic kidney disease III, BPH, TIA and nephrolithiasis who presented to [facility] ED for evaluation of abnormal out patient labs. Patient with known kidney
stones, 3 on the right and 1 on the left. During previous hospitalization 06/19/25 - 06/21/25 with TIA patient complained of abrupt onset left flank pain. Abd/Pel CT was done at that time showing that existing stone had moved. Patient was to follow
up out patient with Dr. Khalil, urology, in which he was treated medically to control pain and plan to repeat imaging in several weeks. Patient was seen by Dr. Cam @ [place] for schedule labs and injection where he was found to significant EWA.
Nephrology and Urology were notified and recommendations to go to ED for evaluation were made.
07/07 Urology, Dr. Oh performed stent placement , has Watson cath with hematuria , AFVSS
#EWA on CKD stage III
Likely due to postrenal obstruction uropathy with left ureteral stone of [address] scan
Had stent placement in left ureter 07/07 with Watson catheter placed
Will continue on judicious IV fluids and hold home ARB
Avoid nephrotoxic agents
Trend BMP and urine output
Cr. 4.4--4.0--3.8
#Obstructing left ureterolithiasis
pt is asymptomatic bacteriuria with watson cath
ORIF this morning with urology
Plan for trial of void as above
Giving pt complicated UTI with stone in ureter , started on short course of IV antibiotics with ceftriaxone
Follow urine culture, NGTD
#Gross hematuria postoperatively
Currently on aspirin and Plavix for TIA that he had earlier this month
Near 21 days of DAPT therapy for TIA
Will hold off on further Plavix, plan to continue aspirin when okay with urologist
Trend CBC
#Severe aortic stenosis
Most recent TTE with mean gradient 41 mmHg and SUZY 0.78 cm�
Monitor volume status closely on IVF as above
Will need to follow-up OP for TAVR workup
Monitor I's and O's, weights, respiratory status
Diet -- NPO, plan for no added salt
DVT -- SCDs
Code -- Full
Anticipated Discharge: > 48 hours
Subjective/Interval History
-
Date of Service: July 08, 2025
He had overnight hematuria with clots in watson cath , a bigger watson inserted with fluid flushing. He has pain in his penile urethra. He denied abdominal pain. He did have nausea and vomiting after he had his lunch. He denied back or flank pain.
denied shortness of breath, chest pain.
Objective Data
-
Labs:
Laboratory Results
07/08/25
05:59
WBC 9.3
Hgb 9.2 L
Hct 27.7 L
Plt Count 298
Sodium 137
Potassium 5.0
Chloride 107
Carbon Dioxide 23
BUN 61 H
Creatinine 3.8 H
Glucose 113 H
Calcium 8.2 L
Total Bilirubin 0.2
AST 22
ALT 17
Alkaline Phosphatase 104
Vital Signs:
Vital Signs
Temp Pulse Resp BP Pulse Ox
98.4 F 76 17 102/55 100
07/07/25 23:18 07/07/25 23:18 07/07/25 23:18 07/07/25 23:18 07/07/25 23:18
I&O
07/06/25 07/07/25 07/08/25
06:59 06:59 06:59
Intake Total 500 / 500 1660 / 1660
Output Total 300 / 300 950 / 950
Balance 200 / 200 710 / 710
Review of Systems
-
History Source: Patient
Respiratory: Reports No Symptoms
Cardiac: Reports No Symptoms
Abdomen/GI: Reports No Symptoms
Genitourinary: Reports Other (hematuria, penile orifice pain)
Physical Exam
-
General: Well Developed, Well Nourished and No Apparent Distress
Respiratory: Clear to Auscultation
Cardiac: S1/S2 and Irregular Rhythm
GI: Soft, Nontender and Nondistended
Genito-urinary: Watson (hematuria)
Musculoskeletal: No Edema
Skin: Warm and Dry
Neuro: Awake, Alert and Oriented
Psych: Calm
[2025-07-08 07:15] VITALS: BP 125/65
--- NOTE | 2025-07-08 07:36 | W.PN.URO.CBU ---
Today's Communication / Plan
-
cbi
trend labs
Assessment / Plan
-
functionally solitary left kidney
s/p left ureteroscopy and stent 06/27 on plavix for recent tia- off since sat
now with post op clot retention- 3 way watson
continue asa- hold plavix
cbi
trend hgb and cr level
continue flomax
continue inpt care
Diagnosis
-
Date of Service: July 08, 2025
-
Patient Diagnosis:
right staghorn stone
obstructing left ureteral stone
renal insuff
post op hematuria
Post Op Day:
left urerteroscopy/laser litho and stent 07/07
Subjective
-
pt developed clot retention- called at 5am
3 way watson placed- irrigated large amount of clot/ cbi initiated
urine now light pink
Objective
-
Vital Signs
Temp Pulse Resp BP Pulse Ox
98.4 F 76 17 102/55 100
07/07/25 23:18 07/07/25 23:18 07/07/25 23:18 07/07/25 23:18 07/07/25 23:18
Intake and Output
07/07/25 07/08/25 07/09/25
06:59 06:59 06:59
Intake Total 500 / 500 1660 / 1660
Output Total 300 / 300 950 / 950
Balance 200 / 200 710 / 710
Intake:
Oral fluids 900 / 900
IV fluids (Total) 500 / 500 760 / 760
Normosol 100 / 100
Output:
Urine, Watson 950 / 950
Urine, Voided 300 / 300
True urine output from hand 0 / 0
irrigation
Other:
Number of approximated LARGE 1
amounts of urine
Laboratory Results
07/08/25 05:59
07/08/25 05:59
Review of Systems
-
Constitutional: Fatigue
Respiratory: No Symptoms
Cardiac: No Symptoms
Abdomen/GI: No Symptoms
: Other (watson pain)
Physical Exam
-
General - no acute distress
Abdomen - soft, non-tender
Genitalia - [address]
[2025-07-08] MEDS: LIPITOR 40 MG PO (08:10)
[2025-07-08] MEDS: EMLA CREAM 2 GRAM TOPICAL ×2 (08:10→19:58)
[2025-07-08] MEDS: LOW STRENGTH ASPIRIN 81 MG PO (08:10)
[2025-07-08] MEDS: PROTONIX 40 MG PO (08:10)
[2025-07-08] MEDS: LR 1000 IV ×2 (09:09→22:36)
[2025-07-08] MEDS: PERCOCET 5/325 2 TABLET PO (09:18)
[2025-07-08] MEDS: ROCEPHIN 1000 MG IV (12:17)
[2025-07-08] MEDS: STERILE WATER FOR INJECTION 10 ML IV (12:17)
[2025-07-08] MEDS: VALIUM INJECTION 2.5 MG IV ×2 (12:17→18:40)
--- NOTE | 2025-07-08 12:31 | W.PN.NEPH.PH ---
Today's Communication / Plan
-
Lactated ringer
Assessment/Plan
-
IMP:
EWA with chronic kidney disease III b-basleline cr 1.6, follow Dr Perez
Left hydronephrosis from stone s/p left u/l/s with basket extraction and JJ stent
hypertension
hyperlipidemia
TIA
GERD
BPH
severe
Arthritis
Hypogonadism
h/o melanoma
Anemia-chronic follows heme
PLan:
obst uropathy
s/p stone extraction and stent palcement by today, appt input
Bp stable,holding ARB
now that he is on flomax, hold cardura
monitor vol status with severe
Lactated Ringer's
Creatinine down to 3.8
d/w pt and at bedside
-
-
Date of Service: July 08, 2025
CC / HPI / ROS
-
Chief Complaint:
EWA
History of Present Illness:
EWA on CKD renal calculi status post
Review of Systems:
No chest pain or shortness of breath
Labs
-
Labs:
WBC 9.3 10^3/uL (4.8-10.8) 07/08/25 05:59
RBC 2.86 10^6/uL (4.70-6.10) L 07/08/25 05:59
Hgb 9.2 g/dL (13.0-18.0) L 07/08/25 05:59
Hct 27.7 % (39.0-52.0) L 07/08/25 05:59
Plt Count 298 10^3/uL (130-400) 07/08/25 05:59
Sodium 137 mmol/L (135-145) 07/08/25 05:59
Potassium 5.0 mmol/L (3.5-5.1) 07/08/25 05:59
Chloride 107 mmol/L (98-107) 07/08/25 05:59
Carbon Dioxide 23 mmol/L (22-30) 07/08/25 05:59
BUN 61 mg/dl (9-20) H 07/08/25 05:59
Creatinine 3.8 mg/dL (0.7-1.3) H 07/08/25 05:59
eGFR 14.77 07/08/25 05:59
Glucose 113 mg/dl (70-99) H 07/08/25 05:59
Calcium 8.2 mg/dl (8.4-10.2) L 07/08/25 05:59
Albumin 2.8 g/dl (3.5-5.0) L 07/08/25 05:59
Physical Exam
-
Vital Signs:
Vital Signs
Temp Pulse Resp BP Pulse Ox
97.7 F 78 17 125/65 96
07/08/25 07:15 07/08/25 07:15 07/08/25 07:15 07/08/25 07:15 07/08/25 07:15
Respiratory:: Bilateral: CTA
Lung Excursion:: Normal
Abdomen:: Soft
Bowel Sounds:: Normal
Extremity Edema:: None: Bilateral:
Navarro Catheter: Yes
[2025-07-08] MEDS: ZOFRAN 4 MG IV (15:00)
[2025-07-08 15:50] VITALS: BP 108/65
[2025-07-08] MEDS: FLOMAX 0.4 MG PO (22:39)
[2025-07-08 23:01] VITALS: BP 131/72
[2025-07-09] VITALS (19 sets, daily range): BP systolic 114–152; BP diastolic 62–95
[2025-07-09] MEDS: VALIUM INJECTION 2.5 MG IV ×3 (01:34→21:04)
--- NOTE | 2025-07-09 07:12 | W.PN.HOSP.TC ---
Today's Communication/Plan
-
OR cystoscopy today
upgraded to IMU after cystoscopy
Appreciate urology following
one unit of RBC ordered
Assessment / Plan
Assessment / Plan
85-year-old male with past medical history significant for hypertension, hyperlipidemia, GERD, chronic kidney disease III, BPH, TIA and nephrolithiasis who presented to [facility] ED for evaluation of abnormal out patient labs. Patient with known kidney
stones, 3 on the right and 1 on the left. During previous hospitalization 06/19/25 - 06/21/25 with TIA patient complained of abrupt onset left flank pain. Abd/Pel CT was done at that time showing that existing stone had moved. Patient was to follow
up out patient with Dr. Khalil, urology, in which he was treated medically to control pain and plan to repeat imaging in several weeks. Patient was seen by Dr. Cam @ [place] for schedule labs and injection where he was found to significant EWA.
Nephrology and Urology were notified and recommendations to go to ED for evaluation were made.
07/07 Urology, Dr. Oh performed stent placement , has Watson cath with hematuria , AFVSS
07/09 continued need cbi and continued to have hematuria , evaluated by urology and OR cystoscopy was done and upgrade to IMU after cystoscopy, AFVSS
#EWA on CKD stage III
Likely due to postrenal obstruction uropathy with left ureteral stone of [address] scan
Had stent placement in left ureter 07/07 with Watson catheter placed
Will continue on judicious IV fluids and hold home ARB
Avoid nephrotoxic agents
Trend BMP and urine output
Cr. 4.4--4.0--3.8--3.3
#Acute blood loss anemia
11.2--9.4--9.2--8.1
secondary to gross hematuria postoperatively
Was on DAPT for recent TIA, Plavix now discontinued
remains on aspirin
Urology ordered 1 unit PRBC for today
Trend CBC
Hemoglobin goal >7 or lack of anemic symptoms
Plan for cystoscopy today
#Obstructing left ureterolithiasis
pt is asymptomatic bacteriuria with watson cath
ORIF this morning with urology
Plan for trial of void as above
Giving pt complicated UTI with stone in ureter , started on short course of IV antibiotics with ceftriaxone
Follow urine culture, NGTD
#Gross hematuria postoperatively
Currently on aspirin and Plavix for TIA that he had earlier this month
Near 21 days of DAPT therapy for TIA
Will hold off on further Plavix, plan to continue aspirin when okay with urologist
Trend CBC
#Severe aortic stenosis
Most recent TTE with mean gradient 41 mmHg and SUZY 0.78 cm�
Monitor volume status closely on IVF as above
Will need to follow-up OP for TAVR workup
Monitor I's and O's, weights, respiratory status
Diet -- NPO, plan for no added salt
DVT -- SCDs
Code -- Full
Anticipated Discharge: 24 - 48 hours
Subjective/Interval History
-
Date of Service: July 09, 2025
He continued to require high rate cbi, continued to have hematuria and urologist took him this morning for cystoscopy. Was not able to assess the pt.
Objective Data
-
Labs:
Laboratory Results
07/09/25
06:00
WBC Pending
Hgb Pending
Hct Pending
Plt Count Pending
Sodium Pending
Potassium Pending
Chloride Pending
Carbon Dioxide Pending
BUN Pending
Creatinine Pending
Glucose Pending
Calcium Pending
Total Bilirubin Pending
AST Pending
ALT Pending
Alkaline Phosphatase Pending
Vital Signs:
Vital Signs
Temp Pulse Resp BP Pulse Ox
98.7 F 82 16 131/72 98
07/08/25 23:01 07/08/25 23:01 07/08/25 23:01 07/08/25 23:01 07/08/25 23:01
I&O
07/08/25 07/09/25 07/10/25
06:59 06:59 06:59
Intake Total 1660 / 1660 1710 / 1710
Output Total 950 / 950 2350 / 2350
Balance 710 / 710 -640 / -640
Review of Systems
-
Unable to obtain full review of systems at this time due to: Other (He was down tp the OR for cystoscopy)
Physical Exam
-
General: Other (He was down for cystoscopy. )
--- NOTE | 2025-07-09 07:31 | W.PN.UPDATE ---
Update Note
Progress Note Update
pt has continued to require high rate cbi
was able to irrigate some clot- but cath irrigating in a way that leads me to believe there is still high volume clot in bladder
last plavix dose now 72hrs ago
reviewed with pt and
high risk situation- but have rec OR for cysto/clot evac and fulguration understanding risks, benefits, ALTERNAtivES and disabilities
npo/ type and screen/ to OR when room available
[2025-07-09 07:49] LABS: Hematocrit 24.6 % (39.0-52.0); Hemoglobin 8.1 g/dL (13.0-18.0); Mean Corp Hgb Conc. 32.9 g/dL (33.0-37.0); Mean Corpuscular Volume 97.2 fL (80.0-94.0); Nucleated Red Blood Cells % 0 % (-); Platelet Count 269 10^3/uL (130-400); Red Cell Dist. Width 14.5 % (11.5-14.5)
[2025-07-09 08:31] LABS: ALT (SGPT) 15 U/L (0-50); AST (SGOT) 29 U/L (17-59); Albumin 2.6 g/dl (3.5-5.0); Alkaline Phosphatase 111 U/L (38-126); Blood Urea Nitrogen 51 mg/dl (9-20); Calcium 8.1 mg/dl (8.4-10.2); Carbon Dioxide 20 mmol/L (22-30); Chloride 109 mmol/L (98-107); Estimated Creatinine Clearance 11 ml/min; Glucose 100 mg/dl (70-99); Potassium 5.1 mmol/L (3.5-5.1); Sodium 137 mmol/L (135-145); Total Protein 5.0 g/dl (6.3-8.2); eGFR 17.49
--- NOTE | 2025-07-09 11:20 | W.IMMPOSTOP ---
Surgical Immed Post Op Note
-
Primary Surgeon:
reena
Assisting Surgeon:
Pre-op Diagnosis:
clot retention
Post-op Diagnosis:
same
Procedure Performed:
cysto/clot evac/fulguration
Anesthesia Type:
gen
Specimen / Cultures:
none
Estimated Blood Loss:
200cc old clot evacuated/ 50cc from case
Complications:
none
Operative Findings:
large clot in bladder- irrigated out
focal cystitis in bladder
diffuse bleeding from prostate fossa- fulgurated as possible- but difficult in face of plavix
3 way watson replaced on traction with cbi
received 1 unit prbc's
to IMU
[2025-07-09] MEDS: SUBLIMAZE 50 MCG IV (11:26)
[2025-07-09] MEDS: ROCEPHIN 1000 MG IV (11:50)
[2025-07-09] MEDS: STERILE WATER FOR INJECTION 10 ML IV (11:51)
[2025-07-09] MEDS: SUBLIMAZE 25 MCG IV ×2 (12:01→12:31)
[2025-07-09] MEDS: EMLA CREAM 2 GRAM TOPICAL ×2 (12:45→21:03)
[2025-07-09] MEDS: PERCOCET 5/325 1 TABLET PO (13:33)
[2025-07-09] MEDS: LR 1000 IV (13:37)
--- NOTE | 2025-07-09 14:03 | CM ---
OR today, home with friend when stable.
Plan; Home when stable.
[2025-07-09] MEDS: TYLENOL 650 MG PO (15:12)
[2025-07-09] MEDS: LOW STRENGTH ASPIRIN PO (15:14)
[2025-07-09] MEDS: PROTONIX PO (15:14)
[2025-07-09] MEDS: LIPITOR PO (15:14)
--- NOTE | 2025-07-09 16:08 | PTCARENOTE ---
Received patient into room 3351 from PACU. Patient with CBI in place, running at a moderate rate, urine punch color, irrigatiion bags needing changed approx Q1H. Patient has Navarro to traction with order to remove at 1700. Patient is aaox3, slightly
anxious. Pain minimal, 3/10, medicated with Tylenol, see MAR. Pt advised he is on a CLD but reports he is not hungry yet. just arrived to bedside. Assessment, care and VS as charted.
[2025-07-09 16:11] LABS: Hematocrit 30.6 % (39.0-52.0); Hemoglobin 10.4 g/dL (13.0-18.0); Mean Corp Hgb Conc. 34.0 g/dL (33.0-37.0); Mean Corpuscular Volume 96.5 fL (80.0-94.0); Platelet Count 277 10^3/uL (130-400); Red Cell Dist. Width 16.0 % (11.5-14.5)
[2025-07-09 16:18] LABS: Blood Urea Nitrogen 50 mg/dl (9-20); Calcium 8.2 mg/dl (8.4-10.2); Carbon Dioxide 22 mmol/L (22-30); Chloride 108 mmol/L (98-107); Estimated Creatinine Clearance 12 ml/min; Glucose 135 mg/dl (70-99); Potassium 5.5 mmol/L (3.5-5.1); Sodium 137 mmol/L (135-145); eGFR 19.61
--- NOTE | 2025-07-09 17:10 | PTCARENOTE ---
Patient's Navarro removed from traction around 1700.
[2025-07-09] MEDS: FLOMAX 0.4 MG PO (21:04)
[2025-07-10] VITALS (16 sets, daily range): BP systolic 112–141; BP diastolic 56–87; PULSE 74
[2025-07-10] MEDS: LR 1000 IV (01:11)
[2025-07-10 04:34] LABS: Hematocrit 24.9 % (39.0-52.0); Hemoglobin 8.5 g/dL (13.0-18.0); Mean Corp Hgb Conc. 34.1 g/dL (33.0-37.0); Mean Corpuscular Volume 95.0 fL (80.0-94.0); Nucleated Red Blood Cells % 0 % (-); Platelet Count 249 10^3/uL (130-400); Red Cell Dist. Width 16.0 % (11.5-14.5)
[2025-07-10 05:20] LABS: ALT (SGPT) 18 U/L (0-50); AST (SGOT) 35 U/L (17-59); Albumin 2.4 g/dl (3.5-5.0); Alkaline Phosphatase 93 U/L (38-126); Blood Urea Nitrogen 47 mg/dl (9-20); Calcium 8.2 mg/dl (8.4-10.2); Carbon Dioxide 21 mmol/L (22-30); Chloride 109 mmol/L (98-107); Estimated Creatinine Clearance 13 ml/min; Glucose 111 mg/dl (70-99); Potassium 6.0 mmol/L (3.5-5.1); Sodium 135 mmol/L (135-145); Total Protein 4.8 g/dl (6.3-8.2); eGFR 21.31
--- NOTE | 2025-07-10 05:24 | PTCARENOTE ---
CBI still running. urine color still punch colored. patient comfortable with no complaints. LR running at 75 ml/hr. assessment and vitals charted. call cornelius in reach.
[2025-07-10] MEDS: NSS 1000 IV ×2 (05:40→21:57)
[2025-07-10] MEDS: LOKELMA 10 GRAM PO (05:50)
[2025-07-10] MEDS: EMLA CREAM 2 GRAM TOPICAL ×2 (07:19→20:16)
[2025-07-10] MEDS: LOW STRENGTH ASPIRIN 81 MG PO (07:20)
[2025-07-10] MEDS: PROTONIX 40 MG PO (07:20)
[2025-07-10] MEDS: LIPITOR 40 MG PO (07:20)
--- NOTE | 2025-07-10 07:45 | W.PN.URO.CBU ---
Today's Communication / Plan
-
Continue CBI - to allow for Plavix washout (held since 07/06)
OK to continue aspirin 81 mg
Trend H/H (stable)
Trend Cr (downtrending appropriately)
Diet OK today
Assessment / Plan
-
Functionally solitary left kidney (h/o right staghorn stone)
Obstructing left ureteral stone
JOSEPH
Post-op hematuria exacerbated by DAPT
07/08: s/p left ureteroscopy/laser lithotripsy/stent insertion
07/09: s/p cystoscopy, clot evacuation, fulguration of prostate
Diagnosis
-
Date of Service: July 10, 2025
-
Patient Diagnosis:
Right staghorn stone
Obstructing left ureteral stone
JOSEPH
Post-op hematuria exacerbated by DAPT
Post Op Day:
07/08: s/p left ureteroscopy/laser lithotripsy/stent insertion
07/09: s/p cystoscopy, clot evacuation, fulguration of prostate
Subjective
-
Feels well.
3-way catheter draining o/n w/o obstruction/clots.
UOP light pink on med-high rate CBI.
Objective
-
Vital Signs
Temp Pulse Resp BP Pulse Ox
97.5 F 74 19 141/78 97
07/10/25 07:00 07/10/25 05:00 07/10/25 05:00 07/10/25 04:00 07/10/25 05:00
Intake and Output
07/09/25 07/10/25 07/11/25
06:59 06:59 06:59
Intake Total 3090 / 3090 1150 / 1150
Output Total 7950 / 7950 1775 / 1775
Balance -4860 / -4860 -625 / -625
Intake:
Oral fluids 1440 / 1440 600 / 600
IV fluids (Total) 1650 / 1650 550 / 550
Normosol 250 / 250
Output:
Emesis 100 / 100
True Urine Output from CBI 7850 / 7850 1775 / 1775
Laboratory Results
07/10/25 04:25
Physical Exam
-
General - well developed, well nourished, no acute distress
Abdomen - soft, non-tender
- 3-way catheter w/ light pink UOP on CBI
Neuro - AOx3, no motor deficits
Counseling
-
Discussed in detail w/ patient and spouse at bedside.
--- NOTE | 2025-07-10 08:57 | W.PN.HOSP.TC ---
Today's Communication/Plan
-
Continue IV fluids and trend BMP
Repeat potassium at 10 AM to temporize if needed
IV ceftriaxone empirically through 07/11 for asymptomatic bacteriuria in the context of urinary instrumentation
CBI and trial of void per urology
PT evaluation
Assessment / Plan
Assessment / Plan
85-year-old male with past medical history significant for hypertension, hyperlipidemia, GERD, chronic kidney disease III, BPH, TIA and nephrolithiasis who presented to [facility] ED for evaluation of abnormal out patient labs. Patient with known kidney
stones, 3 on the right and 1 on the left. During previous hospitalization 06/19/25 - 06/21/25 with TIA patient complained of abrupt onset left flank pain. Abd/Pel CT was done at that time showing that existing stone had moved. Patient was to follow
up out patient with Dr. Khalil, urology, in which he was treated medically to control pain and plan to repeat imaging in several weeks. Patient was seen by Dr. Cam @ [place] for schedule labs and injection where he was found to significant EWA.
Nephrology and Urology were notified and recommendations to go to ED for evaluation were made.
07/07 Urology, Dr. Oh performed stent placement , has Watson cath with hematuria , AFVSS
07/09 continued need cbi and continued to have hematuria , evaluated by urology and OR cystoscopy was done and upgrade to IMU after cystoscopy, AFVSS
#EWA on CKD stage III
Likely due to postrenal obstruction uropathy with left ureteral stone of [address] scan
Had stent placement in left ureter 07/07 with Watson catheter placed
Will continue on judicious IV fluids and hold home ARB
Avoid nephrotoxic agents
Trend BMP and urine output
Cr. 4.4--4.0--3.8--3.3 -- 2.8
#Acute blood loss anemia
11.2--9.4--9.2--8.1--8.5
secondary to gross hematuria postoperatively
Was on DAPT for recent TIA, Plavix now discontinued
remains on aspirin
Urology ordered 1 unit PRBC on 07/09
Trend CBC
Hemoglobin goal >7 or lack of anemic symptoms
Plan for cystoscopy today
#Asymptomatic bacteriuria status post urinary instrumentation
Underwent urologic procedures inpatient x 2, initial UA with bacteria present
Currently on IV ceftriaxone, urine culture returned negative
We will plan to continue IV ceftriaxone through end of 07/11 empirically
Monitor CBC and temperature curve
#Hyperkalemia
Potassium this morning 6.0, no symptoms or ECG changes noted
Was given 1 dose of Lokelma this morning, repeat BMP ordered for 10 AM
Trend BMP, temporized K >6 or presence of ECG changes
Low potassium diet
#Obstructing left ureterolithiasis
pt is asymptomatic bacteriuria with watson cath
Plan for trial of void as above at urology discretion
Giving pt complicated UTI with stone in ureter , started on short course of IV antibiotics with ceftriaxone
Follow urine culture, NGTD
#Gross hematuria postoperatively
Currently on aspirin and Plavix for TIA that he had earlier this month
Near 21 days of DAPT therapy for TIA
Will hold off on further Plavix, plan to continue aspirin when okay with urologist
Trend CBC
#History of TIA
Diagnosed with TIA in early June 2025, was on DAPT upon arrival
Plavix discontinued as DAPT near end of 21-day course, bleeding as above
Continue on aspirin and high intensity statin
#Severe aortic stenosis
Most recent TTE with mean gradient 41 mmHg and SUZY 0.78 cm�
Monitor volume status closely on IVF as above
Will need to follow-up OP for TAVR workup
Monitor I's and O's, weights, respiratory status
Diet -- cholesterol-lowering, low potassium
DVT -- SCDs
Code -- Full
Anticipated Discharge: > 48 hours
Subjective/Interval History
-
Date of Service: July 10, 2025
Seen and examined at the bedside. No acute events reported overnight. AFVSS this morning
Hemoglobin stabilized, up to 8.5 following blood. Creatinine improving with fluids. Potassium 6.0 on a.m. labs
Patient states he feels well, denies any complaints. Minimal urethral pain associated with Watson catheter
Objective Data
-
Labs:
Laboratory Results
07/10/25 07/10/25
04:25 09:59
WBC 9.1
Hgb 8.5 L
Hct 24.9 L
Plt Count 249
Sodium 135
Potassium 6.0 H Pending
Chloride 109 H
Carbon Dioxide 21 L
BUN 47 H
Creatinine 2.8 H
Glucose 111 H
Calcium 8.2 L
Total Bilirubin 0.3
AST 35
ALT 18
Alkaline Phosphatase 93
Vital Signs:
Vital Signs
Temp Pulse Resp BP Pulse Ox
97.5 F 74 19 141/78 97
07/10/25 07:00 07/10/25 05:00 07/10/25 05:00 07/10/25 04:00 07/10/25 05:00
I&O
07/09/25 07/10/25 07/11/25
06:59 06:59 06:59
Intake Total 3090 / 3090 1150 / 1150
Output Total 7950 / 7950 1775 / 1775
Balance -4860 / -4860 -625 / -625
Review of Systems
-
History Source: Patient
All other systems: Reviewed and negative
Physical Exam
-
General: Well Developed, No Apparent Distress, Appears Chronically Ill and Other (Thin and frail)
HEENT: Normocephalic, Atraumatic, Moist Mucous Membranes and Anicteric
Respiratory: Clear to Auscultation, Non Labored Respirations and Accessory Resp Muscle Use
Cardiac: Regular Rhythm, S1/S2 and Murmur (3/6 CAITLYN); Negative Rub, JVD or Gallop
GI: Soft, Nontender, Nondistended and Normal Bowel Sounds
Genito-urinary: Bloody Urine (Clear/pink, improving) and Watson
Musculoskeletal: No Clubbing, No Cyanosis and No Edema
Skin: Warm and Dry; Negative Rash
Neuro: AO x 3, Nonfocal/Grossly Intact and Central Nerve's Intact
Data Reviewed
-
Labs: Labs Reviewed by me, Discussed with Patient and Discussed with Family
[2025-07-10 10:20] LABS: Potassium 5.3 mmol/L (3.5-5.1)
[2025-07-10] MEDS: ROCEPHIN 1000 MG IV (11:34)
[2025-07-10] MEDS: STERILE WATER FOR INJECTION 10 ML IV (11:35)
--- NOTE | 2025-07-10 13:29 | W.PN.NEPH.PH ---
Today's Communication / Plan
-
maintenance normal saline/ CBI
Assessment/Plan
-
IMP:
EWA with chronic kidney disease III b-basleline cr 1.6, follow Dr Perez
Left hydronephrosis from stone s/p left u/l/s with basket extraction and JJ stent
hypertension
hyperlipidemia
TIA
GERD
BPH
severe
Arthritis
Hypogonadism
h/o melanoma
Anemia-chronic follows heme
PLan:
obst uropathy >
07/08: s/p left ureteroscopy/laser lithotripsy/stent insertion
07/09: s/p cystoscopy, clot evacuation, fulguration of prostate
Bp stable,holding ARB
Flomax
monitor vol status with severe
maintenance normal saline
Creatinine down to 2.8
d/w pt and at bedside
-
-
Date of Service: July 10, 2025
CC / HPI / ROS
-
Chief Complaint:
EWA
History of Present Illness:
EWA on CKD renal calculi status post
Review of Systems:
No chest pain or shortness of breath
nonoliguric
Labs
-
Labs:
WBC 9.1 10^3/uL (4.8-10.8) 07/10/25 04:25
RBC 2.62 10^6/uL (4.70-6.10) L 07/10/25 04:25
Hgb 8.5 g/dL (13.0-18.0) L 07/10/25 04:25
Hct 24.9 % (39.0-52.0) L 07/10/25 04:25
Plt Count 249 10^3/uL (130-400) 07/10/25 04:25
Sodium 135 mmol/L (135-145) 07/10/25 04:25
Potassium 5.3 mmol/L (3.5-5.1) H 07/10/25 09:57
Chloride 109 mmol/L (98-107) H 07/10/25 04:25
Carbon Dioxide 21 mmol/L (22-30) L 07/10/25 04:25
BUN 47 mg/dl (9-20) H 07/10/25 04:25
Creatinine 2.8 mg/dL (0.7-1.3) H 07/10/25 04:25
eGFR 21.31 07/10/25 04:25
Glucose 111 mg/dl (70-99) H 07/10/25 04:25
Calcium 8.2 mg/dl (8.4-10.2) L 07/10/25 04:25
Albumin 2.4 g/dl (3.5-5.0) L 07/10/25 04:25
Physical Exam
-
Vital Signs:
Vital Signs
Temp Pulse Resp BP Pulse Ox
97.4 F 74 19 141/78 100
07/10/25 11:24 07/10/25 05:00 07/10/25 05:00 07/10/25 04:00 07/10/25 08:00
Respiratory:: Bilateral: CTA
Lung Excursion:: Normal
Abdomen:: Soft
Bowel Sounds:: Normal
Extremity Edema:: None: Bilateral:
Navarro Catheter: Yes
[2025-07-10] MEDS: MIRALAX PO (14:50)
--- NOTE | 2025-07-10 14:54 | PTCARENOTE ---
Pt AOx3. VSS. CBI continues, bloody tinged urine, no clots observed. Discuss reporting pain, leaking or spasms. Advanced to chol lowering diet. Ambulated w/ RW and assist x 1, tolerated being in chair for 4 hours.
[2025-07-10] MEDS: VALIUM INJECTION 2.5 MG IV ×2 (17:22→21:57)
[2025-07-10] MEDS: SENOKOT 8.6 MG PO (20:16)
[2025-07-10] MEDS: FLOMAX 0.4 MG PO (20:16)
--- NOTE | 2025-07-10 20:34 | PTCARENOTE ---
Assumed care of Pt at shift change; 3-way watson intact - leg strap added and watson secured. CBI running at moderate rate with punch-color urine draining. Pt continues to report bladder spasm pain at times; Awtson care performed and lidocaine
applied to meatus. at bedside - Pt and spouse updated with care plan. AAO x 3; VSS; NSR on monitor; Will continue to monitor and assess.
[2025-07-11] VITALS (20 sets, daily range): BP systolic 106–157; BP diastolic 47–85; PULSE 88–89
[2025-07-11 05:29] LABS: Hematocrit 23.6 % (39.0-52.0); Hemoglobin 7.9 g/dL (13.0-18.0); Mean Corp Hgb Conc. 33.5 g/dL (33.0-37.0); Mean Corpuscular Volume 95.9 fL (80.0-94.0); Nucleated Red Blood Cells % 0 % (-); Platelet Count 256 10^3/uL (130-400); Red Cell Dist. Width 15.8 % (11.5-14.5)
[2025-07-11 05:39] LABS: Blood Urea Nitrogen 43 mg/dl (9-20); Calcium 7.8 mg/dl (8.4-10.2); Carbon Dioxide 20 mmol/L (22-30); Chloride 113 mmol/L (98-107); Estimated Creatinine Clearance 14 ml/min; Glucose 100 mg/dl (70-99); Potassium 5.1 mmol/L (3.5-5.1); Sodium 138 mmol/L (135-145); eGFR 22.26
--- NOTE | 2025-07-11 08:19 | W.PN.HOSP.TC ---
Today's Communication/Plan
-
1U PRBC today
Continue IVF
Trend BMP and CBC
CBI and TOV per urology
Assessment / Plan
Assessment / Plan
85-year-old male with past medical history significant for hypertension, hyperlipidemia, GERD, chronic kidney disease III, BPH, TIA and nephrolithiasis who presented to [facility] ED for evaluation of abnormal out patient labs. Patient with known kidney
stones, 3 on the right and 1 on the left. During previous hospitalization 06/19/25 - 06/21/25 with TIA patient complained of abrupt onset left flank pain. Abd/Pel CT was done at that time showing that existing stone had moved. Patient was to follow
up out patient with Dr. Khalil, urology, in which he was treated medically to control pain and plan to repeat imaging in several weeks. Patient was seen by Dr. Cam @ [place] for schedule labs and injection where he was found to significant EWA.
Nephrology and Urology were notified and recommendations to go to ED for evaluation were made.
#EWA on CKD stage III
Likely due to postrenal obstruction uropathy with left ureteral stone of [address] scan
Had stent placement in left ureter 07/07 with Watson catheter placed
Will continue on judicious IV fluids and hold home ARB
Cr. 4.4--4.0--3.8--3.3--2.8--2.7
C/W IVF, 1U PRBC today
Avoid nephrotoxic agents
Trend BMP and urine output
#Acute blood loss anemia
11.2--9.4--9.2--8.1--8.5--7.8
secondary to gross hematuria postoperatively
Was on DAPT for recent TIA, Plavix now discontinued, remains on aspirin
Urology ordered 1 unit PRBC on 07/09, order additional 1U today (07/11)
Trend CBC, Hemoglobin goal >7 or lack of anemic symptoms
CBI per urology
#Asymptomatic bacteriuria status post urinary instrumentation
Underwent urologic procedures inpatient x 2, initial UA with bacteria present
Currently on IV ceftriaxone, urine culture returned negative
We will plan to continue IV ceftriaxone through end of 07/11 empirically
Monitor CBC and temperature curve
#Hyperkalemia
Potassium this morning 6.0, no symptoms or ECG changes noted
received 1 dose lokelma, most recent K 5.1 as of morning 07/11
Trend BMP, temporized K >6 or presence of ECG changes
Low potassium diet
#Obstructing left ureterolithiasis
pt is asymptomatic bacteriuria with watson cath
Plan for trial of void as above at urology discretion
Giving pt complicated UTI with stone in ureter , started on short course of IV antibiotics with ceftriaxone
#Gross hematuria postoperatively
Currently on aspirin and Plavix for TIA that he had earlier this month
Near 21 days of DAPT therapy for TIA
Plavix discontinued, remains on ASA
Trend CBC
#History of TIA
Diagnosed with TIA in early June 2025, was on DAPT upon arrival
Plavix discontinued as DAPT near end of 21-day course, bleeding as above
Continue on aspirin and high intensity statin
#Severe aortic stenosis
Most recent TTE with mean gradient 41 mmHg and SUZY 0.78 cm�
Monitor volume status closely on IVF as above
Will need to follow-up OP for TAVR workup
Monitor I's and O's, weights, respiratory status
Diet -- cholesterol-lowering, low potassium
DVT -- SCDs
Code -- Full
Dispo -- PT following
Anticipated Discharge: 24 - 48 hours
Subjective/Interval History
-
Date of Service: July 11, 2025
Seen and examined at the bedside. NAEON. BEARD today
Denies any new complaints, still with intermittent mild urethral pain from catheter.
Hgb down to 7.8, watson tube with pink urine
Objective Data
-
Labs:
Laboratory Results
07/11/25
05:10
WBC 8.4
Hgb 7.9 L
Hct 23.6 L
Plt Count 256
Sodium 138
Potassium 5.1
Chloride 113 H
Carbon Dioxide 20 L
BUN 43 H
Creatinine 2.7 H
Glucose 100 H
Calcium 7.8 L
Vital Signs:
Vital Signs
Temp Pulse Resp BP Pulse Ox
98 F 80 13 129/68 98
07/11/25 07:14 07/11/25 06:00 07/11/25 06:00 07/11/25 06:00 07/10/25 23:47
I&O
07/10/25 07/11/25 07/12/25
06:59 06:59 06:59
Intake Total 1150 / 1150
Output Total 1775 / 1775 3050 / 3050
Balance -625 / -625 -3050 / -3050
Review of Systems
-
History Source: Patient
All other systems: Reviewed and negative
Physical Exam
-
General: Well Developed, No Apparent Distress and Appears Chronically Ill
HEENT: Normocephalic, Atraumatic, Moist Mucous Membranes and Anicteric
Respiratory: Clear to Auscultation and Non Labored Respirations; Negative Accessory Resp Muscle Use
Cardiac: Regular Rhythm, S1/S2 and Murmur; Negative Rub, JVD or Gallop
GI: Soft, Nontender, Nondistended and Normal Bowel Sounds
Genito-urinary: No Costovertebral Tender, Bloody Urine and Watson
Musculoskeletal: No Clubbing, No Cyanosis and No Edema
Skin: Warm and Dry; Negative Rash
Neuro: AO x 3, Nonfocal/Grossly Intact and Central Nerve's Intact
Psych: Calm
Data Reviewed
-
Labs: Labs Reviewed by me, Discussed with Nurse, Discussed with Patient and Discussed with Family
[2025-07-11] MEDS: EMLA CREAM 2 GRAM TOPICAL ×2 (08:58→20:21)
[2025-07-11] MEDS: SENOKOT 8.6 MG PO (08:59)
[2025-07-11] MEDS: MIRALAX 17 GRAMS PO (08:59)
[2025-07-11] MEDS: LOW STRENGTH ASPIRIN 81 MG PO (08:59)
[2025-07-11] MEDS: PROTONIX 40 MG PO (08:59)
[2025-07-11] MEDS: LIPITOR 40 MG PO (08:59)
--- NOTE | 2025-07-11 11:00 | W.PN.URO.CBU ---
Today's Communication / Plan
-
1u PRBC per Hospitalist
Maintain CBI (rate turned up slightly) to keep urine faintly pink to clear through day
Possible CBI clamp trial in AM - overall, consistent improvement in hematuria in 24 hrs pending Plavix washout
OK to continue ASA
Discontinuation of Plavix (permanently)
D/w patient and spouse.
Assessment / Plan
-
Functionally solitary left kidney (h/o right staghorn stone)
Obstructing left ureteral stone
JOSEPH
Post-op hematuria exacerbated by DAPT
Hgb 8.5 => 7.9
07/08: s/p left ureteroscopy/laser lithotripsy/stent insertion
07/09: s/p cystoscopy, clot evacuation, fulguration of prostate
Diagnosis
-
Date of Service: July 11, 2025
-
Patient Diagnosis:
Right staghorn stone
Obstructing left ureteral stone
JOSEPH
Post-op hematuria exacerbated by DAPT
Post Op Day:
07/08: s/p left ureteroscopy/laser lithotripsy/stent insertion
07/09: s/p cystoscopy, clot evacuation, fulguration of prostate
Subjective
-
No obstructions or irrigation required in last 24 hrs.
Urine light pink in tubing on low rate CBI this AM.
Notes moderate discomfort in penis - occasional.
Objective
-
Vital Signs
Temp Pulse Resp BP Pulse Ox
98.2 F 83 21 116/66 98
07/11/25 11:10 07/11/25 10:54 07/11/25 10:54 07/11/25 10:54 07/11/25 08:00
Intake and Output
07/10/25 07/11/25 07/12/25
06:59 06:59 06:59
Intake Total 1150 / 1150 0 / 0
Output Total 1774 / 1774 3050 / 3050
Balance -625 / -625 -3050 / -3050 0 / 0
Intake:
Oral fluids 600 / 600
IV fluids (Total) 550 / 550
Normosol 250 / 250
Blood Product Amount Infused ( 0 / 0
mL)
Packed Rbc Leukoreduced Unit 0 / 0
[id number]
Output:
True Urine Output from CBI 1774 3050 / 3050
Laboratory Results
07/11/25 05:10
07/11/25 05:10
Physical Exam
-
General - well developed, well nourished, no acute distress
Abdomen - soft, non-tender, non-distended
- 3-way catheter w/ light pink UOP in outflow tubing
Neuro - AOx3, no motor deficits
Extremities - no clubbing, no cyanosis, no edema
Care Review
Data Reviewed
Discussed with: Hospitalist, Nursing and Family
CT Scan: Report Pers Reviewed and Image Pers Reviewed
Total Time Spent with Patient (in minutes): 45
--- NOTE | 2025-07-11 11:11 | PTCARENOTE ---
CBI continues, urine pink, no visible clots, rate slower than yesterday. Hgb 7.9, 1 PRBC ordered and transfusing at this time. VSS. Pt reports not pain. Will continue to monitor.
--- NOTE | 2025-07-11 11:14 | W.PN.NEPH.PH ---
Today's Communication / Plan
-
a.m. labs
Assessment/Plan
-
IMP:
EWA with chronic kidney disease III b-basleline cr 1.6, follow Dr Perez
Left hydronephrosis from stone s/p left u/l/s with basket extraction and JJ stent
hypertension
hyperlipidemia
TIA
GERD
BPH
severe
Arthritis
Hypogonadism
h/o melanoma
Anemia-chronic follows heme
PLan:
obst uropathy >
07/08: s/p left ureteroscopy/laser lithotripsy/stent insertion
07/09: s/p cystoscopy, clot evacuation, fulguration of prostate
Bp stable,holding ARB
Flomax
monitor vol status with severe
Creatinine down to 2.8> 2.7 not yet at baseline though slightly improving
continue CBI
d/w pt and at bedside
-
-
Date of Service: July 11, 2025
CC / HPI / ROS
-
Chief Complaint:
EWA
History of Present Illness:
EWA on CKD renal calculi status post
Review of Systems:
No chest pain or shortness of breath
nonoliguric
Labs
-
Labs:
WBC 8.4 10^3/uL (4.8-10.8) 07/11/25 05:10
RBC 2.46 10^6/uL (4.70-6.10) L 07/11/25 05:10
Hgb 7.9 g/dL (13.0-18.0) L 07/11/25 05:10
Hct 23.6 % (39.0-52.0) L 07/11/25 05:10
Plt Count 256 10^3/uL (130-400) 07/11/25 05:10
Sodium 138 mmol/L (135-145) 07/11/25 05:10
Potassium 5.1 mmol/L (3.5-5.1) 07/11/25 05:10
Chloride 113 mmol/L (98-107) H 07/11/25 05:10
Carbon Dioxide 20 mmol/L (22-30) L 07/11/25 05:10
BUN 43 mg/dl (9-20) H 07/11/25 05:10
Creatinine 2.7 mg/dL (0.7-1.3) H 07/11/25 05:10
eGFR 22.26 07/11/25 05:10
Glucose 100 mg/dl (70-99) H 07/11/25 05:10
Calcium 7.8 mg/dl (8.4-10.2) L 07/11/25 05:10
Albumin 2.4 g/dl (3.5-5.0) L 07/10/25 04:25
Physical Exam
-
Vital Signs:
Vital Signs
Temp Pulse Resp BP Pulse Ox
98.2 F 83 21 116/66 98
07/11/25 11:10 07/11/25 10:54 07/11/25 10:54 07/11/25 10:54 07/11/25 08:00
Respiratory:: Bilateral: CTA
Lung Excursion:: Normal
Abdomen:: Soft
Bowel Sounds:: Normal
Extremity Edema:: None: Bilateral:
Navarro Catheter: Yes
[2025-07-11] MEDS: ROCEPHIN 1000 MG IV (12:06)
[2025-07-11] MEDS: STERILE WATER FOR INJECTION 10 ML IV (12:07)
[2025-07-11] MEDS: NSS 1000 IV (13:47)
[2025-07-11] MEDS: SENOKOT PO (20:24)
[2025-07-11] MEDS: VALIUM INJECTION 2.5 MG IV (21:18)
[2025-07-11] MEDS: FLOMAX 0.4 MG PO (21:18)
--- NOTE | 2025-07-11 23:30 | PTCARENOTE ---
Assumed care for patient overnight; 3-way watson intact with CBI running. CBI able to run at a slower rate with pink tinged urine. Pt reports mild discomfort in urethra. Pt reports mild bladder spasms, PRN Valium administered see SEP. Watson care
done. Assessment and vitas as charted. IVF cont. , spouse at the bedside overnight. NSR on the monitor. Pt able to make needs known, call cornelius within reach.
[2025-07-12] VITALS (13 sets, daily range): BP systolic 123–179; BP diastolic 66–104
[2025-07-12 05:05] LABS: Blood Urea Nitrogen 38 mg/dl (9-20); Calcium 7.7 mg/dl (8.4-10.2); Carbon Dioxide 20 mmol/L (22-30); Chloride 112 mmol/L (98-107); Estimated Creatinine Clearance 15 ml/min; Glucose 95 mg/dl (70-99); Potassium 5.2 mmol/L (3.5-5.1); Sodium 138 mmol/L (135-145); eGFR 24.41
--- NOTE | 2025-07-12 07:30 | W.PN.URO.CBU ---
Today's Communication / Plan
-
24Fr 3-way catheter exchanged at bedside (clot obstruction of fenestration) => irrigation WITHOUT additional clots noted
Maintain CBI through day - wean as tolerated to keep urine faintly pink to clear
Plavix discontinued
OK to continue ASA
Will discuss w/ Dr. Khalil
Assessment / Plan
-
Functionally solitary left kidney (h/o right staghorn stone)
Obstructing left ureteral stone
JOSEPH
Post-op hematuria exacerbated by DAPT
Hgb 8.5 => 7.9 => s/p 1u => pending
Cr downtrending
07/08: s/p left ureteroscopy/laser lithotripsy/stent insertion
07/09: s/p cystoscopy, clot evacuation, fulguration of prostate
Diagnosis
-
Date of Service: July 12, 2025
-
Patient Diagnosis:
Right staghorn stone
Obstructing left ureteral stone
JOSEPH
Post-op hematuria exacerbated by DAPT
Post Op Day:
07/08: s/p left ureteroscopy/laser lithotripsy/stent insertion
07/09: s/p cystoscopy, clot evacuation, fulguration of prostate
Subjective
-
Urine nearly clear in outflow tubing this AM.
New and significant bladder and urethral pain noted on round - 3way catheter exchanged at bedside.
Objective
-
Vital Signs
Temp Pulse Resp BP Pulse Ox
98.5 F 72 28 138/67 97
07/12/25 07:20 07/12/25 06:00 07/11/25 13:42 07/12/25 06:00 07/11/25 23:15
Intake and Output
07/11/25 07/12/25 07/13/25
06:59 06:59 06:59
Intake Total 1210 / 1210
Output Total 3050 / 3050 1800 / 1800 -100 / -100
Balance -3050 / -3050 -590 / -590 100 / 100
Intake:
Oral fluids 240 / 240
IV fluids (Total) 720 / 720
Blood Product Amount Infused ( 250 / 250
mL)
Packed Rbc Leukoreduced Unit 250 / 250
[id number]
Output:
True Urine Output from CBI 3050 / 3050 1800 / 1800 -100 / -100
Laboratory Results
07/12/25 03:54
Physical Exam
-
General - well developed, well nourished, no acute distress
Abdomen - soft, non-tender, distended bladder palpable on suprapubic exam
- light pink to clear outflow noted on CBI, 24Fr 3-way in place
Extremities - no clubbing, no cyanosis, no edema
Counseling
-
D/w patient and spouse.
Care Review
Data Reviewed
Discussed with: Hospitalist, Nursing and Family
CT Scan: Report Pers Reviewed and Image Pers Reviewed
Total Time Spent with Patient (in minutes): 30
[2025-07-12] MEDS: NSS 1000 IV (08:27)
[2025-07-12] MEDS: EMLA CREAM 2 GRAM TOPICAL ×2 (08:30→19:48)
[2025-07-12] MEDS: PROTONIX 40 MG PO (08:30)
[2025-07-12] MEDS: LOW STRENGTH ASPIRIN 81 MG PO (08:30)
[2025-07-12] MEDS: MIRALAX PO (08:30)
[2025-07-12] MEDS: LIPITOR 40 MG PO (08:30)
[2025-07-12] MEDS: SENOKOT PO ×2 (08:31→19:49)
[2025-07-12] MEDS: PERCOCET 5/325 1 TABLET PO ×2 (09:28→19:54)
--- NOTE | 2025-07-12 09:33 | W.PN.HOSP.TC ---
Addendum entered and electronically signed by Carlito Pope MD 07/13/25 14:39:
I personally reviewed and evaluated this patient with the resident. I agree with above unless if otherwise stated below.
I personally reviewed labs and imaging client service consultant notes case management note
Agree with resident physician below
Original Note:
Today's Communication/Plan
-
Continue CBI
Hold ceftriaxone
Trend CBC and BMP
Assessment / Plan
Assessment / Plan
Impression
85-year-old male with past medical history significant for hypertension, hyperlipidemia, GERD, chronic kidney disease III, BPH, TIA and nephrolithiasis who presented to [facility] ED for evaluation of abnormal out patient labs. Patient with known kidney
stones, 3 on the right and 1 on the left. During previous hospitalization 06/19/25 - 06/21/25 with TIA patient complained of abrupt onset left flank pain. Abd/Pel CT was done at that time showing that existing stone had moved. Patient was to follow
up out patient with Dr. Khalil, urology, in which he was treated medically to control pain and plan to repeat imaging in several weeks. Patient was seen by Dr. Cam @ [place] for schedule labs and injection where he was found to significant EWA.
Nephrology and Urology were notified and recommendations to go to ED for evaluation were made.
#EWA on CKD stage III
Likely due to postrenal obstruction uropathy with left ureteral stone of [address] scan
Had stent placement in left ureter 07/07 with Navarro catheter placed
Will continue on judicious IV fluids and hold home ARB
Cr. 4.4--4.0--3.8--3.3--2.8--2.7-2.5
C/W IVF
Hemoglobin stable-8.9
Avoid nephrotoxic agents
Trend BMP and urine output
#Acute blood loss anemia
Secondary to gross hematuria postoperatively
Plavix discontinued, Remains on aspirin
S/p 2 units of packed RBCs, (07/09, 07/11)
Trend CBC
Goal hemoglobin greater than 7
#Asymptomatic bacteriuria status post urinary instrumentation
Urine culture negative
Received empiric ceftriaxone for 5 days
Monitor CBC and temperature curve
#Hyperkalemia
Low potassium diet
Received 1 dose of Lokelma today
Trend BMP
watch for arrhythmias
#Obstructing left ureterolithiasis
Urology recommendations appreciated-24Fr 3-way catheter exchanged at bedside (clot obstruction of fenestration) => irrigation WITHOUT additional clots noted
Remains on CBI
Clear to pinkish colored urine
#History of TIA
Continue aspirin and high intensity statin
#Severe aortic stenosis
Most recent TTE with mean gradient 41 mmHg and SUZY 0.78 cm�
Monitor volume status closely on IVF as above
Will need to follow-up OP for TAVR workup
Monitor I's and O's, weights, respiratory status
Diet -- cholesterol-lowering, low potassium
DVT -- SCDs
Code -- Full Code
Dispo -- PT Recommended home health
Anticipated Discharge: 24 - 48 hours
Subjective/Interval History
-
Date of Service: July 12, 2025
Patient seen and examined at bedside
No new complaints. Urinary catheter draining pinkish colored urine
Reports occasional pain with catheter but overall feels well
Denies any fever or chills
Objective Data
-
Labs:
Laboratory Results
07/12/25
03:54
WBC Pending
Hgb Pending
Hct Pending
Plt Count Pending
Sodium 138
Potassium 5.2 H
Chloride 112 H
Carbon Dioxide 20 L
BUN 38 H
Creatinine 2.5 H
Glucose 95
Calcium 7.7 L
Vital Signs:
Vital Signs
Temp Pulse Resp BP Pulse Ox
98.5 F 72 28 138/67 97
07/12/25 07:20 07/12/25 06:00 07/11/25 13:42 07/12/25 06:00 07/11/25 23:15
I&O
07/11/25 07/12/25 07/13/25
06:59 06:59 06:59
Intake Total 1210 / 1210
Output Total 3050 / 3050 1800 / 1800 -100 / -100
Balance -3050 / -3050 -590 / -590 100 / 100
Review of Systems
-
Constitutional: Reports No Symptoms
EENT: Reports No Symptoms Reported
Respiratory: Reports No Symptoms
Cardiac: Reports No Symptoms
Abdomen/GI: Reports No Symptoms
Breast: Reports No Symptoms
Genitourinary: Reports Other (Occasional pain with Navarro's catheter)
Musculoskeletal: Reports No Symptoms
Skin: Reports No Symptoms
Neuro: Reports No Symptoms
Endocrine: Reports No Symptoms
Hematologic / Lymphatic: Reports No Symptoms
Allergy / Immunology: Reports No Symptoms
Psych: Reports Depressed
Physical Exam
-
General: No Apparent Distress, Comfortable and Conversant
HEENT: Normocephalic, Atraumatic and Moist Mucous Membranes
Respiratory: Clear to Auscultation; Negative Wheezes, Rales or Rhonchi
Cardiac: Regular Rhythm and S1/S2
GI: Soft, Nontender, Nondistended and Normal Bowel Sounds
Genito-urinary: No Costovertebral Tender, Navarro, Continuous Bladder Irrigation and Other (Pinkish colored urine in bag)
Musculoskeletal: No Clubbing, No Cyanosis and No Edema
Skin: Warm and Dry
Neuro: Awake, AO x 3 and No Motor Deficits
Psych: Calm
--- NOTE | 2025-07-12 11:01 | W.PN.NEPH.PH ---
Today's Communication / Plan
-
Follow BMP
Escalate sodium bicarbonate to 650 mg 3 times daily
Assessment/Plan
-
IMP:
EWA with chronic kidney disease III b-basleline cr 1.6, follow Dr Perez
Left hydronephrosis from stone s/p left u/l/s with basket extraction and JJ stent
hypertension
hyperlipidemia
TIA
GERD
BPH
severe
Arthritis
Hypogonadism
h/o melanoma
Anemia-chronic follows heme
PLan:
obst uropathy >
07/08: s/p left ureteroscopy/laser lithotripsy/stent insertion
07/09: s/p cystoscopy, clot evacuation, fulguration of prostate
Creatinine down to 2.5, nonoliguric but on CBI
Bp stable,holding ARB
Maintain fluid
monitor vol status with severe
Metabolic acidosis persists
continue CBI per urology
d/w pt and at bedside
-
-
Date of Service: July 12, 2025
CC / HPI / ROS
-
Chief Complaint:
EWA
History of Present Illness:
EWA on CKD renal calculi status post intervention
Metabolic acidosis persist on oral bicarb
Creatinine down to 2.5
Hemodynamically stable off ARB
Review of Systems:
No chest pain or shortness of breath
nonoliguric
Labs
-
Labs:
Sodium 138 mmol/L (135-145) 07/12/25 03:54
Potassium 5.2 mmol/L (3.5-5.1) H 07/12/25 03:54
Chloride 112 mmol/L (98-107) H 07/12/25 03:54
Carbon Dioxide 20 mmol/L (22-30) L 07/12/25 03:54
BUN 38 mg/dl (9-20) H 07/12/25 03:54
Creatinine 2.5 mg/dL (0.7-1.3) H 07/12/25 03:54
eGFR 24.41 07/12/25 03:54
Glucose 95 mg/dl (70-99) 07/12/25 03:54
Calcium 7.7 mg/dl (8.4-10.2) L 07/12/25 03:54
Albumin 2.4 g/dl (3.5-5.0) L 07/10/25 04:25
Physical Exam
-
Vital Signs:
Vital Signs
Temp Pulse Resp BP Pulse Ox
98.5 F 109 28 151/92 96
07/12/25 07:20 07/12/25 10:00 07/11/25 13:42 07/12/25 09:17 07/12/25 08:10
Cardiovascular:: Regular rate and rhythm
Respiratory:: Bilateral: CTA
Lung Excursion:: Normal
Abdomen:: Nontender and Soft
Bowel Sounds:: Normal
Extremity Edema:: None: Bilateral:
Navarro Catheter: Yes
Other Findings::
CVA
[2025-07-12] MEDS: LOKELMA 10 GRAM PO (11:44)
[2025-07-12] MEDS: ROCEPHIN 1000 MG IV (11:50)
[2025-07-12] MEDS: STERILE WATER FOR INJECTION 10 ML IV (11:50)
[2025-07-12] MEDS: VALIUM INJECTION 2.5 MG IV ×2 (13:09→17:43)
--- NOTE | 2025-07-12 14:04 | PTCARENOTE ---
Dr. Bae to room to see patient. Patient complaining of increased bladder pressure. Dr. Bae hand irrigated and changed out 3-way catheter. Some clots removed. Continue CBI as per urology. VS stable. Currently OOB to chair. at
bedside. Will monitor.
[2025-07-12 14:48] LABS: Hematocrit 28.1 % (39.0-52.0); Hemoglobin 8.9 g/dL (13.0-18.0); Mean Corp Hgb Conc. 31.7 g/dL (33.0-37.0); Mean Corpuscular Volume 98.9 fL (80.0-94.0); Nucleated Red Blood Cells % 0 % (-); Platelet Count 275 10^3/uL (130-400); Red Cell Dist. Width 16.2 % (11.5-14.5)
[2025-07-12] MEDS: SODIUM BICARBONATE 650 MG PO ×2 (16:30→23:00)
--- NOTE | 2025-07-12 16:42 | PTCARENOTE ---
Needed to hand irrigate patient x4 to clear clots from CBI tubing. Urine looks clear and light pink until obstructed by clots. Notified urology. Dr. Casas to room to see patient. Patient is currently running at a fast clip. Urine pale pink.
No clots at this time. IV fluids discontinued as ordered.
--- NOTE | 2025-07-12 16:46 | CM ---
F/U: Patient still being monitored, will check with Hospitalist tomorrow, all patient will need if agreeable is Home PT. PLAN: Home PT vs. No Needs.
[2025-07-12] MEDS: FLUSH (NSS) 1 FLUSH IV (17:44)
[2025-07-12 19:26] LABS: Stone Analysis Mass 2 mg
[2025-07-12] MEDS: FLOMAX 0.4 MG PO (23:00)
[2025-07-13] VITALS (13 sets, daily range): BP systolic 109–146; BP diastolic 59–91; BMI 19.5
[2025-07-13] MEDS: VALIUM INJECTION 2.5 MG IV ×3 (00:54→13:57)
--- NOTE | 2025-07-13 02:56 | PTCARENOTE ---
Assumed care for patient overnight. CBI running with pink output no clots noted. Pt is still having mild cramping, PRN Valium administered see SEP. Lidocaine applied to meatus. Pt ambulating to the bathroom x1 assist w/ rolling walker. Assessment
and care as charted, see worklist. at the bedside. VSS. Call cornelius within reach, able to make needs known.
[2025-07-13 04:46] LABS: Blood Urea Nitrogen 34 mg/dl (9-20); Calcium 7.5 mg/dl (8.4-10.2); Carbon Dioxide 21 mmol/L (22-30); Chloride 111 mmol/L (98-107); Estimated Creatinine Clearance 16 ml/min; Glucose 99 mg/dl (70-99); Potassium 4.5 mmol/L (3.5-5.1); Sodium 139 mmol/L (135-145); eGFR 25.63
[2025-07-13] MEDS: PROTONIX 40 MG PO (09:13)
[2025-07-13] MEDS: LOW STRENGTH ASPIRIN 81 MG PO (09:13)
[2025-07-13] MEDS: LIPITOR 40 MG PO (09:13)
[2025-07-13] MEDS: EMLA CREAM 2 GRAM TOPICAL ×2 (09:13→20:42)
[2025-07-13] MEDS: SENOKOT 8.6 MG PO (09:13)
[2025-07-13] MEDS: SODIUM BICARBONATE 650 MG PO ×3 (09:14→20:44)
[2025-07-13] MEDS: MIRALAX PO (09:14)
--- NOTE | 2025-07-13 10:16 | W.PN.HOSP.TC ---
Addendum entered and electronically signed by Carlito Pope MD 07/13/25 14:39:
I personally reviewed and evaluated this patient with the resident. I agree with above unless if otherwise stated below.
I personally reviewed labs and imaging remediation bioanalytics consultant notes case management note
EWA on CKDIII
Post obstructive uropathy
Obstructing left ureterolithiasis
Right staghorn stone
Acute blood loss Anemia exacterbated by DAPT
Post op hematuria
HTN
HLD
GERD
BPH
Severe
CBI
Clamp at midnight
Daily BMP
Follow renal function
Avoid nephrotoxins/Hypotensoin
Monitor UOP
Navarro present for CBI
Conitnue
Daily CBC
Transfuse <7
Follow hemodynamics
Continue antihypertensivs
Original Note:
Today's Communication/Plan
-
Stop CBI at midnight tonight
Anticipate removal of Navarro in AM
Assessment / Plan
Assessment / Plan
Impression
85-year-old male with past medical history significant for hypertension, hyperlipidemia, GERD, chronic kidney disease III, BPH, TIA and nephrolithiasis who presented to [facility] ED for evaluation of abnormal out patient labs. Patient with known kidney
stones, 3 on the right and 1 on the left. During previous hospitalization 06/19/25 - 06/21/25 with TIA patient complained of abrupt onset left flank pain. Abd/Pel CT was done at that time showing that existing stone had moved. Patient was to follow
up out patient with Dr. Khalil, urology, in which he was treated medically to control pain and plan to repeat imaging in several weeks. Patient was seen by Dr. Cam @ [place] for schedule labs and injection where he was found to significant EWA.
Nephrology and Urology were notified and recommendations to go to ED for evaluation were made.
#EWA on CKD stage III
Likely due to postrenal obstruction uropathy with left ureteral stone of [address] scan
Had stent placement in left ureter 07/07 with Navarro catheter placed
Will continue on judicious IV fluids and hold home ARB
Cr. 4.4--4.0--3.8--3.3--2.8--2.7-2.5-2.4
Sodium bicarb 650 mg 3 times daily for metabolic acidosis
Hemoglobin stable-9.4
Avoid nephrotoxic agents
Trend BMP and urine output
#Acute blood loss anemia
Secondary to gross hematuria postoperatively
Plavix discontinued, Remains on aspirin
S/p 2 units of packed RBCs, (07/09, 07/11)
Trend CBC
Goal hemoglobin greater than 7, Hemoglobin stable at 9.4
#Asymptomatic bacteriuria status post urinary instrumentation
Urine culture negative
Received empiric ceftriaxone for 5 days
Monitor CBC and temperature curve
#Hyperkalemia
resolved
Low potassium diet
Trend BMP
watch for arrhythmias
#Obstructing left ureterolithiasis
Urology recommendations appreciated-Stop CBI at midnight tonight-->Anticipate removal of Navarro in AM
Clear to pinkish colored urine
#History of TIA
Continue aspirin and high intensity statin
#Severe aortic stenosis
Most recent TTE with mean gradient 41 mmHg and SUZY 0.78 cm�
Monitor volume status closely on IVF as above
Will need to follow-up OP for TAVR workup
Monitor I's and O's, weights, respiratory status
Diet -- cholesterol-lowering, low potassium
DVT -- SCDs
Code -- Full Code
Dispo -- PT Recommended home health
Anticipated Discharge: 24 - 48 hours
Subjective/Interval History
-
Date of Service: July 13, 2025
Patient seen and examined at bedside
Feels comfortable, occasional spasms but overall feels fine
No costovertebral tenderness or suprapubic pain
Objective Data
-
Labs:
Laboratory Results
07/13/25 07/13/25
03:49 08:35
WBC Pending
Hgb Pending
Hct Pending
Plt Count Pending
Sodium 139
Potassium 4.5
Chloride 111 H
Carbon Dioxide 21 L
BUN 34 H
Creatinine 2.4 H
Glucose 99
Calcium 7.5 L
Vital Signs:
Vital Signs
Temp Pulse Resp BP Pulse Ox
98.8 F 78 28 144/78 97
07/13/25 07:25 07/13/25 06:03 07/11/25 13:42 07/13/25 06:03 07/13/25 01:10
I&O
07/12/25 07/13/25 07/14/25
06:59 06:59 06:59
Intake Total 1210 / 1210 2380 / 2380
Output Total 1800 / 1800 1675 / 1675 800 / 800
Balance -590 / -590 705 / 705 -800 / -800
Review of Systems
-
All other systems: Reviewed and negative
Physical Exam
-
General: Well Developed, No Apparent Distress, Comfortable and Conversant
HEENT: Normocephalic, Atraumatic, Moist Mucous Membranes and Anicteric
Respiratory: Clear to Auscultation; Negative Wheezes, Rales or Rhonchi
Cardiac: Regular Rhythm and S1/S2; Negative Murmur or Rub
GI: Soft, Nontender, Nondistended and Normal Bowel Sounds
Genito-urinary: No Costovertebral Tender, Navarro, Continuous Bladder Irrigation and Other (Pinkish colored urine in bag)
Musculoskeletal: No Clubbing, No Cyanosis and No Edema
Skin: Warm and Dry
Neuro: Awake, Alert, AO x 3 and No Motor Deficits
Psych: Calm
[2025-07-13] MEDS: TYLENOL 650 MG PO (10:39)
--- NOTE | 2025-07-13 10:40 | W.PN.NEPH.PH ---
Today's Communication / Plan
-
Will let current IV fluid bags exhaust
Follow-up BMP in a.m.
Creatinine continues to slowly improve down to 2.4
Assessment/Plan
-
IMP:
EWA with chronic kidney disease III b-basleline cr 1.6, follow Dr Perez
Left hydronephrosis from stone s/p left u/l/s with basket extraction and JJ stent
hypertension
hyperlipidemia
TIA
GERD
BPH
severe
Arthritis
Hypogonadism
h/o melanoma
Anemia-chronic follows heme
PLan:
obst uropathy >
07/08: s/p left ureteroscopy/laser lithotripsy/stent insertion
07/09: s/p cystoscopy, clot evacuation, fulguration of prostate
Creatinine down to 2.4, nonoliguric but on CBI: 2500cc
Bp stable,holding ARB
Will DC further IV fluid
monitor vol status with severe
Metabolic acidosis persists
continue CBI per urology
d/w pt and at bedside
-
-
Date of Service: July 13, 2025
CC / HPI / ROS
-
Chief Complaint:
EWA
History of Present Illness:
EWA on CKD renal calculi status post intervention
Metabolic acidosis persist on oral bicarb
Creatinine down to 2.4
Hemodynamically stable off ARB
Review of Systems:
CBI still in place with Ramon
No chest pain or shortness of breath
nonoliguric
Labs
-
Labs:
Sodium 139 mmol/L (135-145) 07/13/25 03:49
Potassium 4.5 mmol/L (3.5-5.1) 07/13/25 03:49
Chloride 111 mmol/L (98-107) H 07/13/25 03:49
Carbon Dioxide 21 mmol/L (22-30) L 07/13/25 03:49
BUN 34 mg/dl (9-20) H 07/13/25 03:49
Creatinine 2.4 mg/dL (0.7-1.3) H 07/13/25 03:49
eGFR 25.63 07/13/25 03:49
Glucose 99 mg/dl (70-99) 07/13/25 03:49
Calcium 7.5 mg/dl (8.4-10.2) L 07/13/25 03:49
Albumin 2.4 g/dl (3.5-5.0) L 07/10/25 04:25
Physical Exam
-
Vital Signs:
Vital Signs
Temp Pulse Resp BP Pulse Ox
98.8 F 78 28 144/78 97
07/13/25 07:25 07/13/25 06:03 07/11/25 13:42 07/13/25 06:03 07/13/25 01:10
Cardiovascular:: Regular rate and rhythm
Respiratory:: Bilateral: CTA
Lung Excursion:: Normal
Abdomen:: Nontender and Soft
Bowel Sounds:: Normal
Extremity Edema:: None: Bilateral:
Navarro Catheter: Yes
Other Findings::
CBI
[2025-07-13 10:50] LABS: Hematocrit 28.4 % (39.0-52.0); Hemoglobin 9.4 g/dL (13.0-18.0); Mean Corp Hgb Conc. 33.1 g/dL (33.0-37.0); Mean Corpuscular Volume 95.3 fL (80.0-94.0); Nucleated Red Blood Cells % 0 % (-); Platelet Count 277 10^3/uL (130-400); Red Cell Dist. Width 15.5 % (11.5-14.5)
--- NOTE | 2025-07-13 12:21 | W.PN.URO.CBU ---
Today's Communication / Plan
-
Stop CBI at midnight tonight
Anticipate removal of Navarro in AM
Assessment / Plan
-
Functionally solitary left kidney (h/o right staghorn stone)
Obstructing left ureteral stone
JOSEPH
Post-op hematuria exacerbated by DAPT
Hgb 8.5 => 7.9 => s/p 1u => pending: now stable
Cr downtrending
07/08: s/p left ureteroscopy/laser lithotripsy/stent insertion
07/09: s/p cystoscopy, clot evacuation, fulguration of prostate
Diagnosis
-
Date of Service: July 13, 2025
-
Right staghorn stone
Obstructing left ureteral stone
JOSEPH
Post-op hematuria exacerbated by DAPT
Post Op Day:
07/08: s/p left ureteroscopy/laser lithotripsy/stent insertion
07/09: s/p cystoscopy, clot evacuation, fulguration of prostate
Subjective
-
Comfortable
Little catheter bother
No CVAT or SP pain
Objective
-
Vital Signs
Temp Pulse Resp BP Pulse Ox
98.0 F 81 16 139/73 97
07/13/25 11:10 07/13/25 11:00 07/13/25 11:18 07/13/25 10:00 07/13/25 08:00
Intake and Output
07/12/25 07/13/25 07/14/25
06:59 06:59 06:59
Intake Total 1210 / 1210 2380 / 2380
Output Total 1800 / 1800 1675 / 1675 800 / 800
Balance -590 / -590 705 / 705 -800 / -800
Intake:
Oral fluids 240 / 240 1780 / 1780
IV fluids (Total) 720 / 720 600 / 600
Blood Product Amount Infused ( 250 / 250
mL)
Packed Rbc Leukoreduced Unit 250 / 250
[id number]
Output:
True Urine Output from CBI 1800 / 1800 1675 / 1675 800 / 800
Laboratory Results
07/13/25 10:23
07/13/25 03:49
Review of Systems
-
Constitutional: Fatigue
Respiratory: No Symptoms
Cardiac: No Symptoms
Abdomen/GI: No Symptoms
Neurological: No Symptoms
Physical Exam
-
General - well developed, well nourished, no acute distress
Abdomen - soft, non-tender
Genitalia - normal with Navarro draining clear urine on slow drip CBI
Skin - warm & dry with no rash
Counseling
-
Keep CBI until MN tonight
--- NOTE | 2025-07-13 13:38 | CM ---
F/U: RUBEN Xavier met with the patient and , both are agreeable to VN for Home PT, chose this agency. Referral made to them. PLAN: VN for home PT when ready.
--- NOTE | 2025-07-13 14:29 | VNURNOTE ---
Home Health Liaison met with patient and spouse at bedside to discuss [facility] nurse/therapy, visits, schedule and homebound status. Patient is agreeable and understands that visits at home will be 2-3 x per week to assess and teach medical
management.
Patient is aware that [facility] will contact them for start of care within a week after discharge from . Provided contact number for [facility].
[facility] referral completed in [facility].
[2025-07-13 15:45] LABS: Magnesium 1.5 mg/dl (1.6-2.3)
--- NOTE | 2025-07-13 15:46 | PTCARENOTE ---
11 beat NSVT noted on tele returned to SR, BP 109/60 pt was sleeping in recliner chair- arousable and asymptomatic. notified- will continue to monitor- strip to be placed on chart.
[2025-07-13] MEDS: PERCOCET 5/325 1 TABLET PO (15:50)
--- NOTE | 2025-07-13 16:02 | PTCARENOTE ---
C/o 3/10 pain vs spasm penile area- CBI was turned down. Tylenol given x1 with good relief then requested IV Valium now with another c/o 3/10 pain vs spasm- Percocet given and increased cbi slightly - OOB for a few hours - repositioned with mod
assist.
[2025-07-13] MEDS: FLOMAX 0.4 MG PO (20:44)
[2025-07-13] MEDS: SENOKOT PO (20:44)
[2025-07-14] VITALS (12 sets, daily range): BP systolic 109–140; BP diastolic 55–99; PULSE 84
--- NOTE | 2025-07-14 00:24 | PTCARENOTE ---
Assumed care for patient overnight. Pt AAOx3, anxious. Pt at the bedside. Received pt on CBI at slow rate, pink output no clots noted. Pt denies cramping at this time. Orders to stop CBI at midnight, CBI clamped. Closely monitoring output
overnight. Pt ambulated to the bathroom with standby assistance. NSR on the monitor. Remains on room air, 98%. VSS. Assessment and care as charted see worklist. Call cornelius within reach, able to make needs known. Pt is sleeping at this time.
[2025-07-14] MEDS: TYLENOL 650 MG PO ×2 (03:04→08:12)
[2025-07-14 05:43] LABS: Blood Urea Nitrogen 30 mg/dl (9-20); Calcium 7.8 mg/dl (8.4-10.2); Carbon Dioxide 21 mmol/L (22-30); Chloride 114 mmol/L (98-107); Estimated Creatinine Clearance 17 ml/min; Glucose 86 mg/dl (70-99); Magnesium 1.5 mg/dl (1.6-2.3); Potassium 4.4 mmol/L (3.5-5.1); Sodium 138 mmol/L (135-145); eGFR 28.46
[2025-07-14] MEDS: EMLA CREAM 2 GRAM TOPICAL (08:11)
[2025-07-14] MEDS: LOW STRENGTH ASPIRIN 81 MG PO (08:12)
[2025-07-14] MEDS: LIPITOR 40 MG PO (08:12)
[2025-07-14] MEDS: PROTONIX 40 MG PO (08:13)
[2025-07-14] MEDS: SODIUM BICARBONATE 650 MG PO (08:13)
[2025-07-14] MEDS: MIRALAX PO (08:13)
[2025-07-14] MEDS: SENOKOT PO (08:13)
--- NOTE | 2025-07-14 08:20 | W.PN.HOSP.TC ---
Addendum entered and electronically signed by Carlito Pope MD 07/14/25 14:04:
I personally reviewed and evaluated this patient with the resident. I agree with above unless if otherwise stated below.
I personally reviewed labs and imaging philatelic consultant notes case management note
EWA on CKDIII
Post obstructive uropathy
Obstructing left ureterolithiasis
Right staghorn stone
Acute blood loss Anemia exacterbated by DAPT
Post op hematuria
HTN
HLD
GERD
BPH
Severe
Hgb stable
Tolerated CBI clamp well
Uro removed 3way watson
Plan to remove stent as an outpatient
Daily BMP
Follow renal function
Avoid nephrotoxins/Hypotensoin
Monitor UOP
Watson present for CBI
Conitnue
Daily CBC
Transfuse <7
Follow hemodynamics
Continue antihypertensivs
DC home
Original Note:
Today's Communication/Plan
-
Home health
Follow up with urology on outpatient basis
PT/OT
Assessment / Plan
Assessment / Plan
Impression
85-year-old male with past medical history significant for hypertension, hyperlipidemia, GERD, chronic kidney disease III, BPH, TIA and nephrolithiasis who presented to [facility] ED for evaluation of abnormal out patient labs. Patient with known kidney
stones, 3 on the right and 1 on the left. During previous hospitalization 06/19/25 - 06/21/25 with TIA patient complained of abrupt onset left flank pain. Abd/Pel CT was done at that time showing that existing stone had moved. Patient was to follow
up out patient with Dr. Khalil, urology, in which he was treated medically to control pain and plan to repeat imaging in several weeks. Patient was seen by Dr. Cam @ [place] for schedule labs and injection where he was found to significant EWA.
Nephrology and Urology were notified and recommendations to go to ED for evaluation were made.
#EWA on CKD stage III
Likely due to postrenal obstruction uropathy with left ureteral stone of [address] scan
S/P stent placement in left ureter 07/07
Cr. 4.4--4.0--3.8--3.3--2.8--2.7-2.5-2.4-2.2
Sodium bicarb 650 mg 3 times daily for metabolic acidosis
Hemoglobin stable-9.4
Avoid nephrotoxic agents(ARB on hold)
Trend BMP and urine output
#Acute blood loss anemia
Secondary to gross hematuria postoperatively
Plavix discontinued, Remains on aspirin
S/p 2 units of packed RBCs, (07/09, 07/11)
Trend CBC
Goal hemoglobin greater than 7, Hemoglobin stable at 9.4
#Asymptomatic bacteriuria status post urinary instrumentation
Urine culture negative
Received empiric ceftriaxone for 5 days
Monitor CBC and temperature curve
#Hyperkalemia
resolved
Low potassium diet
Trend BMP
watch for arrhythmias
#Obstructing left ureterolithiasis
Urology recommendations appreciated-
Clear to pinkish colored urine
#History of TIA
Continue aspirin and high intensity statin
#Severe aortic stenosis
Most recent TTE with mean gradient 41 mmHg and SUZY 0.78 cm�
Monitor volume status closely on IVF as above
Will need to follow-up OP for TAVR workup
Monitor I's and O's, weights, respiratory status
Diet -- cholesterol-lowering, low potassium
DVT -- SCDs
Code -- Full Code
Dispo -- PT Recommended home health
Anticipated Discharge: Within 24 hours
Subjective/Interval History
-
Date of Service: July 14, 2025
Patient seen and examined at bedside
NAD,occasional cramping in lower abdomen
remained afebrile
Asymptomatic run of NSVT yesterday
Objective Data
-
Labs:
Laboratory Results
07/14/25
04:38
Sodium 138
Potassium 4.4
Chloride 114 H
Carbon Dioxide 21 L
BUN 30 H
Creatinine 2.2 H
Glucose 86
Calcium 7.8 L
Vital Signs:
Vital Signs
Temp Pulse Resp BP Pulse Ox
98.5 F 72 16 125/63 98
07/14/25 07:18 07/14/25 06:00 07/13/25 14:05 07/14/25 06:00 07/14/25 00:22
I&O
07/13/25 07/14/25 07/15/25
06:59 06:59 06:59
Intake Total 2380 / 2380
Output Total 1675 / 1675 2150 / 2150 150 / 150
Balance 705 / 705 -2150 / -2150 -150 / -150
Review of Systems
-
All other systems: Reviewed and negative
Physical Exam
-
General: Well Developed, Well Nourished, No Apparent Distress and Comfortable
HEENT: Normocephalic, Atraumatic and Moist Mucous Membranes
Respiratory: Clear to Auscultation; Negative Wheezes, Rales or Rhonchi
Cardiac: Regular Rhythm and S1/S2
GI: Soft, Nontender, Nondistended and Normal Bowel Sounds
Genito-urinary: Other (clear-pinkish urine)
Musculoskeletal: No Clubbing, No Cyanosis and No Edema
Skin: Warm and Dry
Neuro: Awake, AO x 3 and Nonfocal/Grossly Intact
Psych: Calm
[2025-07-14] MEDS: MAGNESIUM SULFATE 50 IV (08:52)
--- NOTE | 2025-07-14 10:19 | PTCARENOTE ---
Assumed care of patient this AM. CBI d/c at midnight as per MD order. Urine in catheter bag tea colored without any clots. Patient reports some mild discomfort. Medicated with tylenol. As per night RN patient had 11 beat run of V tach,
asymptomatic. Magnesium level in blood 1.5. 2 gram mag rider ordered and is currently infusing. Awaiting urology. in room at bedside. Will monitor.
--- NOTE | 2025-07-14 11:22 | W.PN.URO.CBU ---
Today's Communication / Plan
-
Navarro out today
Will schedule stent removal as an outpatint
Assessment / Plan
-
Functionally solitary left kidney (h/o right staghorn stone)
Obstructing left ureteral stone
JOSEPH
Post-op hematuria exacerbated by DAPT
Hgb 8.5 => 7.9 => s/p 1u => pending: now stable
Cr downtrending
07/08: s/p left ureteroscopy/laser lithotripsy/stent insertion
07/09: s/p cystoscopy, clot evacuation, fulguration of prostate
Diagnosis
-
Date of Service: July 14, 2025
-
Right staghorn stone
Obstructing left ureteral stone
JOSEPH
Post-op hematuria exacerbated by DAPT
Post Op Day:
07/08: s/p left ureteroscopy/laser lithotripsy/stent insertion
07/09: s/p cystoscopy, clot evacuation, fulguration of prostate
Subjective
-
Comfortable
Objective
-
Vital Signs
Temp Pulse Resp BP Pulse Ox
98.5 F 82 16 138/70 97
07/14/25 07:18 07/14/25 08:00 07/13/25 14:05 07/14/25 08:00 07/14/25 08:35
Intake and Output
07/13/25 07/14/25 07/15/25
06:59 06:59 06:59
Intake Total 2380 / 2380 530 / 530
Output Total 1675 / 1675 2150 / 2150 150 / 150
Balance 705 / 705 -2150 / -2150 380 / 380
Intake:
Oral fluids 1780 / 1780 480 / 480
IV fluids (Total) 600 / 600
IV piggybacks 50 / 50
Output:
Urine, Navarro 150 / 150
Urine, Voided 500 / 500
True Urine Output from CBI 1675 / 1675 1650 / 1650
Laboratory Results
07/14/25 04:38
Review of Systems
-
Constitutional: No Symptoms
Respiratory: No Symptoms
Cardiac: No Symptoms
Abdomen/GI: No Symptoms
Physical Exam
-
General - well developed, well nourished, no acute distress
Abdomen - soft, non-tender
Genitalia - normal with Navarro draining clear urine off CBI
Skin - warm & dry with no rash
Counseling
-
Cleared for discharge from standpoint
--- NOTE | 2025-07-14 12:34 | W.DCSUMMARY ---
Discharge Summary
Discharge Data
Date of Admission: 07/06/25
Date of Discharge: 07/14/25
-
Pending Results: No
Hospital Course
Discharging Physician :
Madeline Pope Sandal
Disposition :
Home
Primary care physician :
Bryan Rome MD
Principal Discharge diagnosis :
EWA on CKDIII
Post obstructive uropathy
Obstructing left ureterolithiasis
Acute blood loss Anemia exacterbated by DAPT
Chronic Discharge diagnosis :
HTN
HLD
GERD
BPH
TIA
Nephrolithiasis
Severe
Right staghorn stone
CKDIII
Hospital Course :
85-year-old male with past medical history significant for hypertension, hyperlipidemia, GERD, chronic kidney disease III, BPH, TIA and nephrolithiasis who presented to [facility] ED for evaluation of abnormal out patient labs. Patient with known kidney
stones, 3 on the right and 1 on the left. During previous hospitalization 06/19/25 - 06/21/25 with TIA patient complained of abrupt onset left flank pain. Abd/Pel CT was done at that time showing that existing stone had moved. Patient was to follow
up out patient with Dr. Khalil, urology, in which he was treated medically to control pain and plan to repeat imaging in several weeks. Patient was seen by Dr. Cam @ [place] for schedule labs and injection where he was found to significant EWA.
Nephrology and Urology were notified and recommendations to go to ED for evaluation were made.
#EWA on CKDIII
Likely due to postrenal obstruction uropathy with left ureteral stone of [address] scan[address]07/08: s/p left ureteroscopy/laser lithotripsy/stent insertion
07/09: s/p cystoscopy, clot evacuation, fulguration of prostate
#Post obstructive uropathy
Resolved,CR trending down
#Acute blood loss Anemia exacterbated by DAPT
S/P 2units of pRBCS,plavix discontinued
continue aspirin
Important imaging findings :
CT Abdomen/Pelvis 07/06/25
IMPRESSION:
Obstructive uropathy secondary to a 9 mm calculus in the proximal left ureter causing moderate left hydronephrosis. Stable position of the left ureteral calculus compared to the CT abdomen/pelvis from 07/02/2025.
Abdomen Xray 07/07/25
FINDINGS/IMPRESSION:
Spot intraoperative fluoroscopic images are obtained during ongoing left ureteral stent placement.
Procedure findings :
07/08: s/p left ureteroscopy/laser lithotripsy/stent insertion
07/09: s/p cystoscopy, clot evacuation, fulguration of prostate
Post-op hematuria exacerbated by DAPT-s/p 2 units of packed RBCs-HGB stable
Discharge Plan
-
Patient Disposition: Home with Home Care
Discharge Diagnosis/Procedures: EWA on CKDIII
Post obstructive uropathy
Obstructing left ureterolithiasis
Right staghorn stone
Acute blood loss Anemia exacterbated by DAPT
Condition: Fair
Diet: Regular
Activity: As tolerated
Driving Restrictions: Not until seen by your Dr
Bathing Restrictions: OK to Shower
Other Services: PT and OT
Referrals:
Benjamín Oh MD [Active, Urology]
Referral Note: you have a stent expect blood in urine and urinary frequency and urgency and blood in urine the entire time stent is in place please call Dr Oh [phone] to set up stent removal in office next week ask for ms driver ext [phone]
Stef Rome MD [Family Provider, Family Practice] - in less than 1 week
Additional Discharge Medication Instructions: Stop Plavix on discharge permanently
contine aspirin
Prescriptions:
Continued
cyanocobalamin (vitamin B-12) 1,000 mcg Tablet
1,000 mcg PO DAILY
therapeutic multivitamin Tablet
1 tab PO DAILY
vitamin E 268 mg (400 unit) Capsule
268 mg PO DAILY
doxazosin 2 mg Tablet
2 mg PO HS
cholecalciferol (vitamin D3) [Vitamin D3] 50 mcg (2,000 unit) Capsule
50 mcg PO DAILY
testosterone 20.25 mg/1.25 gram (1.62 %) Gel In Metered-Dose Pump
1 pump TOPICAL DAILY
losartan 100 mg Tablet
100 mg PO DAILY
aspirin 81 mg Tablet,Chewable
81 mg PO DAILY Qty: 30 2RF
omeprazole 20 mg Tablet,Disintegrat, Delay Rel
20 mg PO DAILY
atorvastatin 40 mg tablet
40 mg PO DAILY
ascorbic acid (vitamin C) 500 mg Tablet,Chewable
500 mg PO DAILY
Discontinued
clopidogrel [Plavix] 75 mg tablet
75 mg PO DAILY Qty: 21 0RF
Rx Instructions:
For 3 weeks then STOP
Discharge Orders:
Discharge Patient (As Directed); Ordered 07/14/25
Ordered By: Juan Miguel Armas
Discharge Date and Time
Print Language: NEPALI
--- NOTE | 2025-07-14 12:40 | W.PN.NEPH.PH ---
Today's Communication / Plan
-
Navarro to be removed per urology
Will be okay for discharge from renal standpoint pending urology approval
Assessment/Plan
-
IMP:
EWA with chronic kidney disease III b-basleline cr 1.6, follow Dr Perez
Left hydronephrosis from stone s/p left u/l/s with basket extraction and JJ stent
hypertension
hyperlipidemia
TIA
GERD
BPH
severe
Arthritis
Hypogonadism
h/o melanoma
Anemia-chronic follows heme
PLan:
obst uropathy >
07/08: s/p left ureteroscopy/laser lithotripsy/stent insertion
07/09: s/p cystoscopy, clot evacuation, fulguration of prostate
Creatinine down to 2.2, nonoliguric CBI discontinued Navarro to be removed
Bp stable,holding ARB
monitor vol status with severe
d/w pt and at bedside
-
-
Date of Service: July 14, 2025
CC / HPI / ROS
-
Chief Complaint:
EWA
History of Present Illness:
EWA on CKD renal calculi status post intervention
Metabolic acidosis persist on oral bicarb
Creatinine down to 2.4
Hemodynamically stable off ARB
Review of Systems:
Navarro to be removed
No chest pain or shortness of breath
nonoliguric
Labs
-
Labs:
Sodium 138 mmol/L (135-145) 07/14/25 04:38
Potassium 4.4 mmol/L (3.5-5.1) 07/14/25 04:38
Chloride 114 mmol/L (98-107) H 07/14/25 04:38
Carbon Dioxide 21 mmol/L (22-30) L 07/14/25 04:38
BUN 30 mg/dl (9-20) H 07/14/25 04:38
Creatinine 2.2 mg/dL (0.7-1.3) H 07/14/25 04:38
eGFR 28.46 07/14/25 04:38
Glucose 86 mg/dl (70-99) 07/14/25 04:38
Calcium 7.8 mg/dl (8.4-10.2) L 07/14/25 04:38
Albumin 2.4 g/dl (3.5-5.0) L 07/10/25 04:25
Physical Exam
-
Vital Signs:
Vital Signs
Temp Pulse Resp BP Pulse Ox
97.9 F 82 16 138/70 97
07/14/25 11:37 07/14/25 08:00 07/13/25 14:05 07/14/25 08:00 07/14/25 08:35
Cardiovascular:: Regular rate and rhythm
Respiratory:: Bilateral: CTA
Lung Excursion:: Normal
Abdomen:: Nontender and Soft
Bowel Sounds:: Normal
Extremity Edema:: None: Bilateral:
Navarro Catheter: Yes
Other Findings::
CBI
--- NOTE | 2025-07-14 13:14 | CM ---
F/U: Patient is ready to discharge. [facility] is already arranged and IMM completed. PLAN: Home w/ [facility].
--- NOTE | 2025-07-14 13:43 | PTCARENOTE ---
Removed 3-way catheter at 12:30pm. Patient due to void. Will be d/c to home later today.
--- NOTE | 2025-07-14 14:52 | SUR.PHASEI ---
Patient voided without difficulty. Urine clear, no clots. PVR zero with bladder scan. Will be d/c to home with and daughter.
== END 2025-07-14 16:40 | disposition home health service (06) | DRG 660 ==
LOC: IMU 22:22
PROVIDERS: Internal Medicine; Nurse Practitioner Family; Registered Nurse; Specialist; Specialist Research Data Abstracter/Coder; Student in an Organized Health Care Education/Training Program; ADMITTING PHYSICIAN Internal Medicine; ATTENDING PHYSICIAN Hospitalist; EMERGENCY PHYSICIAN Emergency Medicine; FAMILY PHYSICIAN Family Medicine; OTHER PHYSICIAN Internal Medicine; OTHER PHYSICIAN Specialist
PROC: 0TC78ZZ Extirpation of Matter from Left Ureter, Via Natural or Artificial Opening Endoscopic (ICD-10-PCS; 2025-07-07)
PROC: 0T778DZ Dilation of Left Ureter with Intraluminal Device, Via Natural or Artificial Opening Endoscopic (ICD-10-PCS; 2025-07-07)
PROC: 0TCB8ZZ Extirpation of Matter from Bladder, Via Natural or Artificial Opening Endoscopic (ICD-10-PCS; 2025-07-09)
PROC: 30233N1 Transfusion of Nonautologous Red Blood Cells into Peripheral Vein, Percutaneous Approach (ICD-10-PCS; 2025-07-09)
PROC: 0W3R8ZZ Control Bleeding in Genitourinary Tract, Via Natural or Artificial Opening Endoscopic (ICD-10-PCS; 2025-07-09)
DX: N17.9 Acute kidney failure, unspecified (principal); D62 Acute posthemorrhagic anemia; E87.20 Acidosis, unspecified; N18.32 Chronic kidney disease, stage 3b; N13.2 Hydronephrosis with renal and ureteral calculous obstruction; K21.9 Gastro-esophageal reflux disease without esophagitis; N40.0 Benign prostatic hyperplasia without lower urinary tract symptoms; Z86.73 Personal history of transient ischemic attack (TIA), and cerebral infarction without residual deficits; I12.9 Hypertensive chronic kidney disease with stage 1 through stage 4 chronic kidney disease, or unspecified chronic kidney disease; Z96.653 Presence of artificial knee joint, bilateral; E78.00 Pure hypercholesterolemia, unspecified; Z79.82 Long term (current) use of aspirin; Z85.820 Personal history of malignant melanoma of skin; Z79.02 Long term (current) use of antithrombotics/antiplatelets; Z79.899 Other long term (current) drug therapy
CPT/HCPCS: 74018; 74176; 76000; 80048; 80053; 81003; 81015; 82365; 83735; 84132; 85025; 85027; 86850; 86900; 86901; 86920; 87086; 93005; 96365; 97116; 97162; 97166; 97530; 99291; C1894; C2617; J7030; P9016